=== PATIENT | female | born 1950 | race American Indian/Alaskan Native ===

== ENCOUNTER 2021-12-10 15:44 | Inpatient (IN) | payer MEDICARE ==
--- NOTE | 2021-12-10 18:09 | Emergency Department Report ---
HPI - General Chief Complaint: High BP Time Seen by Provider: 12/10/21 17:50 - HPI HPI: [facility] 7 The patient is a 71-year-old female present with chief complaint right foot pain. Family reports patient has had hypertension, poor appetite and elevated blood sugar. Family states the patient fell a few days ago and has not been her normal self since. Patient states she felt several weeks ago and hurt her right foot. Patient gives her pain a score of 5/10 ED Past Medical Hx - Past Medical History Previous Medical History?: No Additional medical history: Patient denies - Surgical History Past Surgical History?: No Additional Surgical History: Patient denies - Family History Family history: no significant - Social History Smoking Status: Current Every Day Smoker (1 pack/day) Substance Use Type: Alcohol ED Review of Systems ROS: Stated complaint: HTN/NOT EATING/HYPERGLYCEMIA/POSSIBLE GANGRENE Other details as noted in HPI Constitutional: no symptoms reported Eyes: denies: eye pain ENT: denies: throat pain Respiratory: no symptoms reported Cardiovascular: denies: chest pain Endocrine: no symptoms reported Gastrointestinal: denies: abdominal pain Musculoskeletal: arthralgia, myalgia Skin: change in color Neurological: denies: headache Physical Exam - Physical Exam Vital Signs: Vital Signs 12/10/21 16:13 Temperature 98.1 F Pulse Rate 112 H Respiratory 16 Rate Blood Pressure 190/100 [Left] O2 Sat by Pulse 100 Oximetry Physical Exam: GENERAL: The patient is well-developed well-nourished female lying on stretcher not appearing to be in acute distress. [] HEENT: Normocephalic. Atraumatic. Extraocular motions are intact. Patient has moist mucous membranes. NECK: Supple. Trachea midline CHEST/LUNGS: Clear to auscultation. There is no respiratory distress noted. HEART/CARDIOVASCULAR: Regular. There is no tachycardia. There is no gallop rub or murmur. Dopplerable left PT pulse. Unable to palpate or Doppler left DP ABDOMEN: Abdomen is soft, nontender. Patient has normal bowel sounds. There is no abdominal distention. SKIN: There is purplish discoloration of the digits of the left foot with possible gangrene of small digit. There is rubor to the dorsum of the left midfoot NEURO: The patient is awake and oriented but slow to respond. The patient is cooperative. The patient has no focal neurologic deficits. The patient has normal speech. GCS 15 MUSCULOSKELETAL: There is no evidence of acute injury. ED Course Vital Signs 12/10/21 16:13 Temperature 98.1 F Pulse Rate 112 H Respiratory 16 Rate Blood Pressure 190/100 [Left] O2 Sat by Pulse 100 Oximetry - Consultations Consultation #1: 12/10/21 23:50 Vascular surgery paged 12/10/21 22:[address] Duarte- states general surgery should be consulted 12/10/21 22:25 General surgery paged 12/10/21 22:38 Case discussed with surgeon Dr. Guerrier ED Medical Decision Making - Lab Data Result diagrams: 12/10/21 18:37 12/10/21 18:37 Laboratory Tests 12/10/21 12/10/21 12/10/21 18:37 18:37 18:37 WBC 13.3 H RBC 4.49 Hgb 14.7 H Hct 44.2 H MCV 98 H MCH 33 H MCHC 33 RDW 13.4 Plt Count 388 Lymph % (Auto) 7.6 L [place] % (Auto) 7.0 Eos % (Auto) 0.3 Baso % (Auto) 0.3 Lymph # (Auto) 1.0 L [place] # (Auto) 0.9 H Eos # (Auto) 0.0 Baso # (Auto) 0.0 Seg Neutrophils % 84.8 H Seg Neutrophils # 11.3 H VBG pH Sodium 141 Potassium 2.8 L* Chloride 89.5 L Carbon Dioxide 37 H Anion Gap 17 BUN 51 H Creatinine 1.6 H Estimated GFR 39 BUN/Creatinine Ratio 32 Glucose 141 H Lactic Acid 1.70 Calcium 10.1 Total Bilirubin 0.70 AST 29 ALT 21 Alkaline Phosphatase 87 Troponin T C-Reactive Protein Total Protein 6.3 Albumin 3.8 L Albumin/Globulin Ratio 1.5 Triglycerides Cholesterol LDL Cholesterol Direct HDL Cholesterol Cholesterol/HDL Ratio 12/10/21 12/10/21 12/10/21 18:37 18:37 18:37 WBC RBC Hgb Hct MCV MCH MCHC RDW Plt Count Lymph % (Auto) [place] % (Auto) Eos % (Auto) Baso % (Auto) Lymph # (Auto) [place] # (Auto) Eos # (Auto) Baso # (Auto) Seg Neutrophils % Seg Neutrophils # VBG pH 7.516 H Sodium Potassium Chloride Carbon Dioxide Anion Gap BUN Creatinine Estimated GFR BUN/Creatinine Ratio Glucose Lactic Acid Calcium Total Bilirubin AST ALT Alkaline Phosphatase Troponin T 0.072 H C-Reactive Protein 1.60 H Total Protein Albumin Albumin/Globulin Ratio Triglycerides 183 H Cholesterol 199 LDL Cholesterol Direct 100 HDL Cholesterol 51 Cholesterol/HDL Ratio 3.90 - Radiology Data Radiology results: report reviewed (CT head, left foot x-ray), image reviewed (CT head, left foot x-ray) interpreted by me: Left foot x-ray-no fractures or foreign body seen. No evidence of osteomyelitis appreciated [address] [address] Cat Scan Report Signed Patient: BRANDY MONAHAN MR#: [id number] [birth year] : 1950 Acct:[id number] Age/Sex: 71 / F ADM Date: 12/10/21 Loc: ED Attending Dr: Ordering Physician: VANESSA MATHEW MD Date of Service: 12/10/21 Procedure(s): CT head/brain wo con Accession Number(s): [id number] cc: VANESSA MATHEW MD CT BRAIN: 12/10/2021 INDICATION / CLINICAL INFORMATION: Altered mental status. COMPARISON: None available. FINDINGS: BRAIN/INTRACRANIAL STRUCTURES: Unenhanced CT images of the brain demonstrate no evidence of acute abnormality. Ventricles and sulci are prominent in size, consistent with prominent diffuse cerebral atrophy. Extensive chronic white matter hypoattenuation is present throughout the cerebral hemispheric white matter, consistent with extensive chronic small vessel ischemic change. There is no evidence of acute large vessel territory ischemic injury, hemorrhage, or mass. There are no abnormal extra-axial fluid collections. EXTRACRANIAL STRUCTURES: Unremarkable. IMPRESSION: No acute abnormality. Prominent chronic and age-related changes. All CT scans at this location are performed using dose reduction to ALARA by means of automated exposure control. Signer Name: Gee Bone MD Signed: 12/10/2021 7:04 PM Workstation Name: [id number] Transcribed By: ALESSANDRO Dictated By: Gee Bone MD Electronically Authenticated By: Gee Bone MD Signed Date/Time: 12/10/211903 DD/ [address] [address] XRay Report Signed Patient: BRANDY MONAHAN MR#: [id number] [birth year] : 1950 Acct:[id number] Age/Sex: 71 / F ADM Date: 12/10/21 Loc: ED Attending Dr: Ordering Physician: VANESSA MATHEW MD Date of Service: 12/10/21 Procedure(s): XR foot 3+V LT Accession Number(s): [id number] cc: VANESSA MATHEW MD Fluoro Time In Minutes: LEFT FOOT 3 VIEWS INDICATION / CLINICAL INFORMATION: Foot infection/gangrene of the digits COMPARISON: None available. FINDINGS: BONES and JOINT(S): No acute fracture or subluxation. The bones are demineralized. No areas of cortical destruction are identified. No significant arthritis. SOFT TISSUES: Mild edema is seen throughout the toes. No soft tissue defect or soft tissue gas. ADDITIONAL FINDINGS: None. IMPRESSION: Mild edema along the left toes without other acute findings. Signer Name: Pietro Braga MD Signed: 12/10/2021 7:06 PM Workstation Name: [id number] Transcribed By: MN Dictated By: Pietro Braga MD Electronically Authenticated By: Pietro Braga MD Signed Date/Time: 12/10/211905 DD/ 04 TD/TT: - Differential Diagnosis Diabetic foot infection, peripheral vascular disease, cellulitis Critical care attestation.: If time is entered above; I have spent that time in minutes in the direct care of this critically ill patient, excluding procedure time. ED Disposition Clinical Impression: Left foot infection, Peripheral vascular disease, Hypertension Disposition: ADMITTED INPATIENT Is pt being admited?: Yes Does the pt Need Aspirin: No Condition: Fair Instructions: Hypertension (ED) Time of Disposition: 22:00 (Care transferred to hospitalist (Dr. Grimes))
--- NOTE | 2021-12-10 19:08 | Cat Scan Report ---
CT BRAIN: 12/10/2021 INDICATION / CLINICAL INFORMATION: Altered mental status. COMPARISON: None available. FINDINGS: BRAIN/INTRACRANIAL STRUCTURES: Unenhanced CT images of the brain demonstrate no evidence of acute abn ormality. Ventricles and sulci are prominent in size, consistent with prominent diffuse cerebral atrophy. Extensive chronic white matter hypoattenuation is present throughout the cerebral hemispheric white m atter, consistent with extensive chronic small vessel ischemic change. There is no evidence of acute large vessel territory ischemic injury, hemorrhage, or mass. There are no abnormal extra-axial fluid collections. EXTRACRANIAL STRUCTURES: Unremarkable. IMPRESSION: No acute abnormality. Prominent chronic and age-related changes. All CT scans at this location are performed using dose reduction to ALARA by means of automated expos ure control. Signer Name: Gee Bone MD Signed: 12/10/2021 7:04 PM Workstation Name: [id number]
--- NOTE | 2021-12-10 19:11 | XRay Report ---
LEFT FOOT 3 VIEWS INDICATION / CLINICAL INFORMATION: Foot infection/gangrene of the digits COMPARISON: None available. FINDINGS: BONES and JOINT(S): No acute fracture or subluxation. The bones are demineralized. No areas of cortic al destruction are identified. No significant arthritis. SOFT TISSUES: Mild edema is seen throughout the toes. No soft tissue defect or soft tissue gas. ADDITIONAL FINDINGS: None. IMPRESSION: Mild edema along the left toes without other acute findings. Signer Name: Pietro Braga MD Signed: 12/10/2021 7:06 PM Workstation Name: [id number]
[2021-12-10 19:25] LABS: Basophils % (Auto) 0.3 % (0.0-1.8); Eosinophils % (Auto) 0.3 % (0.0-4.3); Hematocrit 44.2 % (30.3-42.9); Hemoglobin 14.7 gm/dl (10.1-14.3); Lymphocytes % (Auto) 7.6 % (13.4-35.0); Mean Corpuscular HGB Conc 33 % (30-34); Mean Corpuscular Volume 98 fl (79-97); Monocytes # (Auto) 0.9 K/mm3 (0.0-0.8); Platelet Count 388 K/mm3 (140-440); Red Blood Count 4.49 M/mm3 (3.65-5.03); Red Cell Distribution Width 13.4 % (13.2-15.2)
[2021-12-10 19:29] LABS: Albumin 3.8 g/dL (3.9-5); Calcium 10.1 mg/dL (8.4-10.2)
[2021-12-10] MEDS ORDERED: VANCOMYCIN/NS 1 GM/250 ML 1 GM/250 ML BAG IV ONE (19:44)
[2021-12-10] MEDS ORDERED: CEFEPIME/NS 2 GM/100 ML 2 GM/100 ML BAG IV ONE (19:44)
[2021-12-10 20:21] LABS: Chol/HDL Ratio 3.9 %
[2021-12-10] MEDS ORDERED: POTASSIUM CHLORIDE ER 20 MEQ TAB PO ONE (20:46)
[2021-12-10] MEDS ORDERED: cloNIDine 0.2 MG TAB PO ONE (22:07)
[2021-12-10] MEDS ORDERED: MORPHINE 2 MG/1 ML INJ IV PRN (22:08)
[2021-12-10] MEDS ORDERED: ACETAMINOPHEN 325 MG TAB PO PRN ×2 (22:08→23:07)
[2021-12-10] MEDS ORDERED: ONDANSETRON 4 MG/2 ML INJ IV PRN (22:08)
[2021-12-10 22:40] LABS: Erythrocyte Sedimentation Rate 12 mm/Hr (0-20)
[2021-12-10] MEDS ORDERED: VANCOMYCIN PHARMACY TO DOSE IV SCH (23:00)
[2021-12-10] MEDS ORDERED: NITROGLYCERIN 0.4 MG TAB SUBL SL PRN (23:07)
[2021-12-10] MEDS ORDERED: DEXTROSE 50% IN WATER (25GM) 50 ML SYRINGE IV PRN (23:07)
[2021-12-10] MEDS ORDERED: MORPHINE 4 MG/1 ML INJ IV PRN (23:07)
[2021-12-10 23:09] LABS: INR 0.76 (0.87-1.13)
[2021-12-10 23:10] LABS: Partial Thromboplastin Time 25.8 Sec. (24.2-36.6)
--- NOTE | 2021-12-10 23:16 | History and Physical Report ---
History of Present Illness Date of examination: 12/10/21 Date of admission: 12/10/21 22:08 Chief complaint: Left foot pain High blood pressure History of present illness: 71-year-old female with history of hypertension, poor appetite and elevated blood sugar was brought to the hospital because of left foot pain. Family states the patient fell a few days ago and has not been her normal self since. Patient states she felt several weeks ago and hurt her right foot. Patient gives her pain a score of 5/10. In the ER patient is found to have left foot infection. X-ray of the foot shows mild edema along the left toes without other acute findings. CT scan of the head shows no acute abnormality. Still going to admit the patient we will put the patient on IV antibiotic and consult surgery for evaluation as per vascular surgery Past History Past Medical History: diabetes, hypertension Past Surgical History: No surgical history Social history: smoking, alcohol abuse Family history: hypertension Medications and Allergies Allergies Allergy/AdvReac Type Severity Reaction Status Date / Time No Known Allergies Allergy Verified 12/10/21 16:19 Active Meds: Active Medications Acetaminophen (Acetaminophen 325 Mg Tab) 650 mg PO Q4H PRN PRN Reason: Pain MILD(1-3)/Fever >100.5/REYES Morphine Sulfate (Morphine 2 Mg/1 Ml Inj) 2 mg IV Q4H PRN PRN Reason: Pain, Moderate (4-6) Ondansetron HCl (Ondansetron 4 Mg/2 Ml Inj) 4 mg IV Q8H PRN PRN Reason: Nausea And Vomiting Sodium Chloride (Sodium Chloride 0.9% 10 Ml Flush Syringe) 10 ml IV BID SOLEDAD Sodium Chloride (Sodium Chloride 0.9% 10 Ml Flush Syringe) 10 ml IV PRN PRN PRN Reason: LINE FLUSH Review of Systems Constitutional: fatigue, weakness, malaise, other (Left foot infection and pain) Exam - Constitutional Vitals: Temp Pulse Resp BP Pulse Ox 98.1 F 112 H 16 190/100 96 12/10/21 16:13 12/10/21 16:13 12/10/21 16:13 12/10/21 16:13 12/10/21 20:15 General appearance: Present: no acute distress, well-nourished - EENT Eyes: Present: PERRL ENT: hearing intact, clear oral mucosa - Neck Neck: Present: supple, normal ROM - Respiratory Respiratory effort: normal Respiratory: bilateral: CTA - Cardiovascular Heart Sounds: Present: S1 & S2. Absent: rub, click - Extremities Extremities: pulses symmetrical, No edema Extremity abnormal: ulceration, erythema, other (Left foot infection) Peripheral Pulses: within normal limits - Abdominal General gastrointestinal: Present: soft, non-tender, non-distended, normal bowel sounds Female genitourinary: Present: normal - Integumentary Integumentary: Present: clear, warm, dry - Musculoskeletal Musculoskeletal: gait normal, strength equal bilaterally - Psychiatric Psychiatric: appropriate mood/affect, intact judgment & insight - Neurologic Neurologic: CNII-XII intact, moves all extremities HEART Score - HEART Score Troponin: Troponin T 0.072 ng/mL (0.00-0.029) H 12/10/21 18:37 Results - Labs CBC & Chem 7: 12/10/21 18:37 12/10/21 18:37 Labs: Laboratory Last Values WBC 13.3 K/mm3 (4.5-11.0) H 12/10/21 18:37 RBC 4.49 M/mm3 (3.65-5.03) 12/10/21 18:37 Hgb 14.7 gm/dl (10.1-14.3) H 12/10/21 18:37 Hct 44.2 % (30.3-42.9) H 12/10/21 18:37 MCV 98 fl (79-97) H 12/10/21 18:37 MCH 33 pg (28-32) H 12/10/21 18:37 MCHC 33 % (30-34) 12/10/21 18:37 RDW 13.4 % (13.2-15.2) 12/10/21 18:37 Plt Count 388 K/mm3 (140-440) 12/10/21 18:37 Lymph % (Auto) 7.6 % (13.4-35.0) L 12/10/21 18:37 [place] % (Auto) 7.0 % (0.0-7.3) 12/10/21 18:37 Eos % (Auto) 0.3 % (0.0-4.3) 12/10/21 18:37 Baso % (Auto) 0.3 % (0.0-1.8) 12/10/21 18:37 Lymph # (Auto) 1.0 K/mm3 (1.2-5.4) L 12/10/21 18:37 [place] # (Auto) 0.9 K/mm3 (0.0-0.8) H 12/10/21 18:37 Eos # (Auto) 0.0 K/mm3 (0.0-0.4) 12/10/21 18:37 Baso # (Auto) 0.0 K/mm3 (0.0-0.1) 12/10/21 18:37 Seg Neutrophils % 84.8 % (40.0-70.0) H 12/10/21 18:37 Seg Neutrophils # 11.3 K/mm3 (1.8-7.7) H 12/10/21 18:37 ESR 12 mm/Hr (0-20) 12/10/21 18:37 PT 11.7 Sec. (12.2-14.9) L 12/10/21 20:37 INR 0.76 (0.87-1.13) L 12/10/21 20:37 APTT 25.8 Sec. (24.2-36.6) 12/10/21 20:37 VBG pH 7.516 (7.320-7.420) H 12/10/21 18:37 Sodium 141 mmol/L (137-145) 12/10/21 18:37 Potassium 2.8 mmol/L (3.6-5.0) L* 12/10/21 18:37 Chloride 89.5 mmol/L (98-107) L 12/10/21 18:37 Carbon Dioxide 37 mmol/L (22-30) H 12/10/21 18:37 Anion Gap 17 mmol/L 12/10/21 18:37 BUN 51 mg/dL (7-17) H 12/10/21 18:37 Creatinine 1.6 mg/dL (0.6-1.2) H 12/10/21 18:37 Estimated GFR 39 ml/min 12/10/21 18:37 BUN/Creatinine Ratio 32 % 12/10/21 18:37 Glucose 141 mg/dL (65-100) H 12/10/21 18:37 Lactic Acid 1.70 mmol/L (0.7-2.0) 12/10/21 18:37 Calcium 10.1 mg/dL (8.4-10.2) 12/10/21 18:37 Total Bilirubin 0.70 mg/dL (0.1-1.2) 12/10/21 18:37 AST 29 units/L (5-40) 12/10/21 18:37 ALT 21 units/L (7-56) 12/10/21 18:37 Alkaline Phosphatase 87 units/L (35-129) 12/10/21 18:37 Troponin T 0.072 ng/mL (0.00-0.029) H 12/10/21 18:37 C-Reactive Protein 1.60 mg/dL (0.00-1.30) H 12/10/21 18:37 Total Protein 6.3 g/dL (6.3-8.2) 12/10/21 18:37 Albumin 3.8 g/dL (3.9-5) L 12/10/21 18:37 Albumin/Globulin Ratio 1.5 % 12/10/21 18:37 Triglycerides 183 mg/dL (2-149) H 12/10/21 18:37 Cholesterol 199 mg/dL (50-199) 12/10/21 18:37 LDL Cholesterol Direct 100 mg/dL (50-130) 12/10/21 18:37 HDL Cholesterol 51 mg/dL (40-59) 12/10/21 18:37 Cholesterol/HDL Ratio 3.90 % 12/10/21 18:37 Microbiology: Microbiology 12/10/21 20:05 Peripheral/Venous Blood Culture - Preliminary Culture in Progress 12/10/21 20:05 Peripheral/Venous Blood Culture - Preliminary Culture in Progress - Imaging and Cardiology CT Scan - head: report reviewed Assessment and Plan VTE prophylaxis?: Chemical Plan of care discussed with patient/family: Yes - Patient Problems (1) Left foot infection Current Visit: Yes Status: Acute Plan to address problem: Admit the patient to the medical floor. Vancomycin 1 g IV 12 hours. Zosyn 4.5 g IV every 8 hours. Wound care evaluation and wound culture. Surgical evaluation. Recheck CBC BMP in the morning (2) Elevated troponin Current Visit: Yes Status: Acute Plan to address problem: Aspirin 81 mg p.o. daily. Lipitor 40 mg p.o. daily. Serial cardiac enzymes. Echocardiogram. Cardiology evaluation (3) Hyperglycemia Current Visit: Yes Status: Acute Plan to address problem: 1800 kcal ADA diet. Accu-Chek before meals and at bedtime with Humalog moderate dose coverage. Diabetic education (4) Hypertension Current Visit: Yes Status: Acute Plan to address problem: Hydralazine 10 mg IV every 6 hours as needed. We continue the home medication. We will monitor the blood pressure closely. Cardiology evaluation (5) Peripheral vascular disease Current Visit: Yes Status: Acute Plan to address problem: Aspirin 320 mg p.o. daily. Lipitor 40 mg p.o. daily. Vancomycin 1 g IV every 12 hours. Zosyn. Surgery evaluation (6) DVT prophylaxis Current Visit: Yes Status: Acute Plan to address problem: Heparin 5000 units subcu every 8 hours for DVT prophylaxis. Pepcid 20 mg p.o. twice daily for GI prophylaxis. Patient is a full code
[2021-12-10] MEDS ORDERED: PIPERACIL/TAZOBACTA 4.5/NS 100 4.5 GM/100 ML VIAL IV SCH (23:45)
[2021-12-10] MEDS ORDERED: VANCOMYCIN/NS 1 GM/250 ML 1 GM/250 ML BAG IV SCH (23:45)
[2021-12-11] MEDS: SODIUM CHLORIDE 0.45% 1000 ML 1,000 ML IV SCH ×2 (02:16→21:35)
[2021-12-11] MEDS ORDERED: cloNIDine 0.2 MG TAB PO ONE (05:55)
[2021-12-11] MEDS: HEPARIN 5,000 UNIT/1 ML VIAL SUB-Q SCH ×3 (05:59→21:55)
[2021-12-11] MEDS ORDERED: hydrALAZINE 20 MG/1 ML INJ IV PRN ×2 (06:16→09:30)
[2021-12-11] MEDS: INSULIN LISPRO 100 UNIT/ML SUB-Q SCH ×4 (08:25→21:36)
[2021-12-11 08:26] LABS: Hematocrit 40.8 % (30.3-42.9); Hemoglobin 13.8 gm/dl (10.1-14.3); Mean Corpuscular HGB Conc 34 % (30-34); Mean Corpuscular Volume 98 fl (79-97); Platelet Count 327 K/mm3 (140-440); Red Blood Count 4.15 M/mm3 (3.65-5.03); Red Cell Distribution Width 13.4 % (13.2-15.2)
[2021-12-11 08:39] LABS: Calcium 9.2 mg/dL (8.4-10.2)
--- NOTE | 2021-12-11 09:01 | Consultation ---
History of Present Illness Consult date: 12/11/21 - History of present illness History of present illness: 71-year-old female with history of hypertension, poor appetite and elevated blood sugar was brought to the hospital because of left foot pain. Family states the patient fell a few days ago and has not been her normal self since. Patient states she felt several weeks ago and hurt her right foot. Patient gives her pain a score of 5/10. In the ER patient is found to have left foot infection. X-ray of the foot shows mild edema along the left toes without other acute findings. CT scan of the head shows no acute abnormality. Surgery is consulted to help manage STI of left foot. Vascular eval also in progress. Past History Past Medical History: diabetes, hypertension Past Surgical History: No surgical history Social history: smoking, alcohol abuse Family history: hypertension Medications and Allergies Allergies Allergy/AdvReac Type Severity Reaction Status Date / Time No Known Allergies Allergy Verified 12/10/21 16:19 Home Medications Medication Instructions Recorded Confirmed Last Taken Type Amlodipine Besylate 5 PO DAILY 12/11/21 12/11/21 Unknown History DULoxetine [Cymbalta] 30 mg PO BID 12/11/21 12/11/21 Unknown History Doxycycline Monohydrate 100 mg PO BID 12/11/21 12/11/21 Unknown History [Doxycycline Monohydrate CAP] Gabapentin 100 mg PO BID 12/11/21 12/11/21 Unknown History Megestrol Acetate 40 mg PO DAILY 12/11/21 12/11/21 Unknown History QUEtiapine [SEROquel] 12.5 mg PO HS 12/11/21 12/11/21 Unknown History Vitamin D3 50,000UNIT CAP 50,000 units PO 1XW 12/11/21 12/11/21 Unknown History Active Meds: Active Medications Acetaminophen (Acetaminophen 325 Mg Tab) 650 mg PO Q6H PRN PRN Reason: Pain, Mild (1-3) Aspirin (Aspirin Ec 325 Mg Tab) 325 mg PO QDAY [facility] Atorvastatin Calcium (Atorvastatin 40 Mg Tab) 40 mg PO QHS [facility] Dextrose (Dextrose 50% In Water (25gm) 50 Ml Syringe) 50 ml IV Q30MIN PRN; Protocol PRN Reason: Hypoglycemia Heparin Sodium (Porcine) (Heparin 5,000 Unit/1 Ml Vial) 5,000 unit SUB-Q Q8HR [facility] Last Admin: 12/11/21 05:59 Dose: 5,000 unit Hydralazine HCl (Hydralazine 20 Mg/1 Ml Inj) 10 mg IV Q6HR PRN PRN Reason: Hypertension Sodium Chloride (Nacl 0.45% 1000 Ml) 1,000 mls @ 100 mls/hr IV DIRECT [facility] Last Admin: 12/11/21 02:16 Dose: 100 mls/hr Piperacillin Sod/Tazobactam Sod (Zosyn/Ns 3.375gm/50ml) 3.375 gm in 50 mls @ 100 mls/hr IV Q8H [facility]; Protocol Vancomycin HCl 1,250 mg/ (Sodium Chloride) 275 mls @ 166.667 mls/hr IV Q24H [facility] Insulin Human Lispro (Insulin Lispro 100 Unit/Ml) 0 unit SUB-Q ACHS [facility]; Protocol Morphine Sulfate (Morphine 2 Mg/1 Ml Inj) 2 mg IV Q4H PRN PRN Reason: Pain, Moderate (4-6) Morphine Sulfate (Morphine 4 Mg/1 Ml Inj) 2 mg IV Q5MIN PRN PRN Reason: Chest Pain unrelieved by NTG Nitroglycerin (Nitroglycerin 0.4 Mg Tab Subl) 0.4 mg SL Q5M PRN PRN Reason: Chest Pain Ondansetron HCl (Ondansetron 4 Mg/2 Ml Inj) 4 mg IV Q8H PRN PRN Reason: Nausea And Vomiting Pantoprazole Sodium (Pantoprazole 40 Mg Tab) 40 mg PO QDAY [facility] Sodium Chloride (Sodium Chloride 0.9% 10 Ml Flush Syringe) 10 ml IV BID [facility] Sodium Chloride (Sodium Chloride 0.9% 10 Ml Flush Syringe) 10 ml IV PRN PRN PRN Reason: LINE FLUSH Tramadol HCl (Tramadol 50 Mg Tab) 50 mg PO Q6H PRN PRN Reason: Pain, Moderate (4-6) Exam Vital Signs Temp Pulse Resp BP Pulse Ox 98.1 F 112 H 16 190/100 100 12/10/21 16:13 12/10/21 16:13 12/10/21 16:13 12/10/21 16:13 12/10/21 16:13 Results - Labs 12/10/21 18:37 12/11/21 07:31 Abnormal lab results 12/10/21 12/10/21 12/10/21 Range/Units 18:37 18:37 18:37 WBC 13.3 H (4.5-11.0) K/mm3 Hgb 14.7 H (10.1-14.3) gm/dl Hct 44.2 H (30.3-42.9) % MCV 98 H (79-97) fl MCH 33 H (28-32) pg Lymph % (Auto) 7.6 L (13.4-35.0) % Lymph # (Auto) 1.0 L (1.2-5.4) K/mm3 [place] # (Auto) 0.9 H (0.0-0.8) K/mm3 Seg Neutrophils % 84.8 H (40.0-70.0) % Seg Neutrophils # 11.3 H (1.8-7.7) K/mm3 PT (12.2-14.9) Sec. INR (0.87-1.13) VBG pH (7.320-7.420) Potassium 2.8 L* (3.6-5.0) mmol/L Chloride 89.5 L (98-107) mmol/L Carbon Dioxide 37 H (22-30) mmol/L BUN 51 H (7-17) mg/dL Creatinine 1.6 H (0.6-1.2) mg/dL Glucose 141 H (65-100) mg/dL Troponin T 0.072 H (0.00-0.029) ng/mL C-Reactive Protein (0.00-1.30) mg/dL Albumin 3.8 L (3.9-5) g/dL Triglycerides 183 H (2-149) mg/dL 12/10/21 12/10/21 12/10/21 Range/Units 18:37 18:37 20:37 WBC (4.5-11.0) K/mm3 Hgb (10.1-14.3) gm/dl Hct (30.3-42.9) % MCV (79-97) fl MCH (28-32) pg Lymph % (Auto) (13.4-35.0) % Lymph # (Auto) (1.2-5.4) K/mm3 [place] # (Auto) (0.0-0.8) K/mm3 Seg Neutrophils % (40.0-70.0) % Seg Neutrophils # (1.8-7.7) K/mm3 PT 11.7 L (12.2-14.9) Sec. INR 0.76 L (0.87-1.13) VBG pH 7.516 H (7.320-7.420) Potassium (3.6-5.0) mmol/L Chloride (98-107) mmol/L Carbon Dioxide (22-30) mmol/L BUN (7-17) mg/dL Creatinine (0.6-1.2) mg/dL Glucose (65-100) mg/dL Troponin T (0.00-0.029) ng/mL C-Reactive Protein 1.60 H (0.00-1.30) mg/dL Albumin (3.9-5) g/dL Triglycerides (2-149) mg/dL 12/11/21 12/11/21 Range/Units 07:31 07:31 WBC (4.5-11.0) K/mm3 Hgb (10.1-14.3) gm/dl Hct (30.3-42.9) % MCV (79-97) fl MCH (28-32) pg Lymph % (Auto) (13.4-35.0) % Lymph # (Auto) (1.2-5.4) K/mm3 [place] # (Auto) (0.0-0.8) K/mm3 Seg Neutrophils % (40.0-70.0) % Seg Neutrophils # (1.8-7.7) K/mm3 PT (12.2-14.9) Sec. INR (0.87-1.13) VBG pH (7.320-7.420) Potassium 3.2 L (3.6-5.0) mmol/L Chloride 93.5 L (98-107) mmol/L Carbon Dioxide 35 H (22-30) mmol/L BUN 44 H (7-17) mg/dL Creatinine 1.4 H (0.6-1.2) mg/dL Glucose 102 H (65-100) mg/dL Troponin T 0.060 H (0.00-0.029) ng/mL C-Reactive Protein (0.00-1.30) mg/dL Albumin (3.9-5) g/dL Triglycerides (2-149) mg/dL Diabetes panel 12/10/21 12/10/21 12/11/21 Range/Units 18:37 18:37 07:31 Sodium 141 141 (137-145) mmol/L Potassium 2.8 L* 3.2 L (3.6-5.0) mmol/L Chloride 89.5 L 93.5 L (98-107) mmol/L Carbon Dioxide 37 H 35 H (22-30) mmol/L BUN 51 H 44 H (7-17) mg/dL Creatinine 1.6 H 1.4 H (0.6-1.2) mg/dL Glucose 141 H 102 H (65-100) mg/dL Calcium 10.1 9.2 (8.4-10.2) mg/dL AST 29 (5-40) units/L ALT 21 (7-56) units/L Alkaline Phosphatase 87 (35-129) units/L Total Protein 6.3 (6.3-8.2) g/dL Albumin 3.8 L (3.9-5) g/dL Triglycerides 183 H (2-149) mg/dL HDL Cholesterol 51 (40-59) mg/dL Calcium panel 12/10/21 12/11/21 Range/Units 18:37 07:31 Calcium 10.1 9.2 (8.4-10.2) mg/dL Albumin 3.8 L (3.9-5) g/dL Pituitary panel 12/10/21 12/11/21 Range/Units 18:37 07:31 Sodium 141 141 (137-145) mmol/L Potassium 2.8 L* 3.2 L (3.6-5.0) mmol/L Chloride 89.5 L 93.5 L (98-107) mmol/L Carbon Dioxide 37 H 35 H (22-30) mmol/L BUN 51 H 44 H (7-17) mg/dL Creatinine 1.6 H 1.4 H (0.6-1.2) mg/dL Glucose 141 H 102 H (65-100) mg/dL Calcium 10.1 9.2 (8.4-10.2) mg/dL Adrenal panel 12/10/21 12/11/21 Range/Units 18:37 07:31 Sodium 141 141 (137-145) mmol/L Potassium 2.8 L* 3.2 L (3.6-5.0) mmol/L Chloride 89.5 L 93.5 L (98-107) mmol/L Carbon Dioxide 37 H 35 H (22-30) mmol/L BUN 51 H 44 H (7-17) mg/dL Creatinine 1.6 H 1.4 H (0.6-1.2) mg/dL Glucose 141 H 102 H (65-100) mg/dL Calcium 10.1 9.2 (8.4-10.2) mg/dL Total Bilirubin 0.70 (0.1-1.2) mg/dL AST 29 (5-40) units/L ALT 21 (7-56) units/L Alkaline Phosphatase 87 (35-129) units/L Total Protein 6.3 (6.3-8.2) g/dL Albumin 3.8 L (3.9-5) g/dL Assessment and Plan 71-year-old female with history of hypertension, poor appetite and elevated blood sugar was brought to the hospital because of left foot pain. Family states the patient fell a few days ago and has not been her normal self since. Patient states she felt several weeks ago and hurt her right foot. Patient gives her pain a score of 5/10. In the ER patient is found to have left foot infection. X-ray of the foot shows mild edema along the left toes without other acute findings. CT scan of the head shows no acute abnormality. Surgery is consulted to help manage STI of left foot. Vascular eval also in progress.
[2021-12-11] MEDS ORDERED: POTASSIUM CHLORIDE ER 20 MEQ TAB PO NR (09:30)
[2021-12-11] MEDS ORDERED: ASPIRIN EC 325 MG TAB PO SCH (10:00)
--- NOTE | 2021-12-11 10:33 | Electrocardiograph Report ---
[facility] Test Date: 2021-12-11 Test Time: 00:48:12 Pat Name: BRANDY MONAHAN Department: Room: A466 1 Gender: F Jewel Setter: JACLYN : 1950 Requested By: NORBERT COSTA Order Number: [id number] Reading MD: Cruz Sommer Measurements Intervals [place] Rate: 99 P: 83 NE: 164 QRS: -74 QRSD: 95 T: -75 QT: 410 QTc: 528 Interpretive Statements Sinus rhythm Biatrial enlargement Left anterior fascicular block Prolonged QT interval No previous ECG available for comparison Electronically Signed On 12-11-2021 10:33:50 EDT by Cruz Sommer
--- NOTE | 2021-12-11 10:34 | Electrocardiograph Report ---
[facility] Test Date: 2021-12-11 Test Time: 06:42:43 Pat Name: BRANDY MONAHAN Department: Room: A466 1 Gender: F Marble Setter: JANICE : 1950 Requested By: NORBERT COSTA Order Number: [id number] Reading MD: Cruz Sommer Measurements Intervals [place] Rate: 94 P: 57 [place]: 167 QRS: -86 QRSD: 88 T: -89 QT: 420 QTc: 526 Interpretive Statements Sinus rhythm Probable left atrial enlargement Left anterior fascicular block LVH with secondary repolarization abnormality Probable anterior infarct, age indeterminate Prolonged QT interval Compared to ECG 12/11/2021 00:48:12 Left ventricular hypertrophy now present Early repolarization now present Myocardial infarct finding now present Electronically Signed On 12-11-2021 10:34:08 EDT by Cruz Sommer
[2021-12-11] MEDS ORDERED: SODIUM CHLORIDE 0.9% 500 ML 500 ML IV SCH (11:00)
[2021-12-11] MEDS: METOPROLOL TARTRATE 25 MG TAB PO SCH ×2 (11:06→21:56)
[2021-12-11] MEDS: PANTOPRAZOLE 40 MG TAB PO SCH (11:06)
[2021-12-11] MEDS: PIPERACILLIN/TAZOBACTAM 3.375 3.375 GM/50 ML BAG IV SCH (12:02)
--- NOTE | 2021-12-11 13:49 | Consultation ---
History of Present Illness Consult date: 12/11/21 Consult reason: elevated troponin History of present illness: 71-year-old woman with history of hypertension, brought in to the hospital by the family for poor appetite and uncontrolled blood pressures. The patient was seen in the emergency room, with a blood pressure of 190/100, multiple laboratory abnormalities including a leukocytosis of 13,000, hypokalemia of 2.8, and acute kidney injury with a BUN of 51 and creatinine of 1.6. In this milieu, the troponin level was borderline increased at 0.07. Cardiology consultation w as requested for the troponin elevation. The patient appears frail, cachectic, and lethargic, but no acute respiratory distress. No chest pain or shortness of breath or palpitations was reported. T here is no lower extremity edema. It is uncertain why her blood pressure was uncontrolled, she is unable to comment on whether compliant with her recommended antihypertensive therapy. There are no records of any prior cardiac history of prior cardiac work-up. EKG was a sinus rhythm, left axis deviation, left ventricular per trophy with diffuse ST segment depression, questionable left ventricle hypertrophy repolarization abnormalities less likely ischemia. There are no prior ECGs for comparison. Past History Past Medical History: diabetes, hypertension Past Surgical History: No surgical history Social history: smoking, alcohol abuse Family history: hypertension Medications and Allergies Allergies Allergy/AdvReac Type Severity Reaction Status Date / Time No Known Allergies Allergy Verified 12/10/21 16:19 Home Medications Medication Instructions Recorded Confirmed Last Taken Type Amlodipine Besylate 5 PO DAILY 12/11/21 12/11/21 Unknown History DULoxetine [Cymbalta] 30 mg PO BID 12/11/21 12/11/21 Unknown History Doxycycline Monohydrate 100 mg PO BID 12/11/21 12/11/21 Unknown History [Doxycycline Monohydrate CAP] Gabapentin 100 mg PO BID 12/11/21 12/11/21 Unknown History Megestrol Acetate 40 mg PO DAILY 12/11/21 12/11/21 Unknown History QUEtiapine [SEROquel] 12.5 mg PO HS 12/11/21 12/11/21 Unknown History Vitamin D3 50,000UNIT CAP 50,000 units PO 1XW 12/11/21 12/11/21 Unknown History Active Meds: Active Medications Acetaminophen (Acetaminophen 325 Mg Tab) 650 mg PO Q6H PRN PRN Reason: Pain, Mild (1-3) Aspirin (Aspirin Ec 325 Mg Tab) 325 mg PO QDAY [facility] Last Admin: 12/11/21 11:06 Dose: 325 mg Atorvastatin Calcium (Atorvastatin 40 Mg Tab) 40 mg PO QHS [facility] Dextrose (Dextrose 50% In Water (25gm) 50 Ml Syringe) 50 ml IV Q30MIN PRN; Protocol PRN Reason: Hypoglycemia Heparin Sodium (Porcine) (Heparin 5,000 Unit/1 Ml Vial) 5,000 unit SUB-Q Q8HR [facility] Last Admin: 12/11/21 05:59 Dose: 5,000 unit Hydralazine HCl (Hydralazine 25 Mg Tab) 25 mg PO Q8HR [facility] Hydralazine HCl (Hydralazine 20 Mg/1 Ml Inj) 10 mg IV Q4H PRN PRN Reason: Hypertension Sodium Chloride (Nacl 0.45% 1000 Ml) 1,000 mls @ 100 mls/hr IV DIRECT [facility] Last Admin: 12/11/21 02:16 Dose: 100 mls/hr Sodium Chloride (Nacl 0.9% 500 Ml) 500 mls @ 50 mls/hr IV ONCE@1100 [facility] Stop: 12/11/21 18:00 Last Admin: 12/11/21 11:07 Dose: 50 mls/hr Vancomycin HCl 500 mg/ Sodium (Chloride) 110 mls @ 66.667 mls/hr IV Q24H [facility] Insulin Human Lispro (Insulin Lispro 100 Unit/Ml) 0 unit SUB-Q ACHS [facility]; Protocol Last Admin: 12/11/21 08:25 Dose: Not Given Metoprolol Tartrate (Metoprolol Tartrate 25 Mg Tab) 12.5 mg PO BID [facility] Last Admin: 12/11/21 11:06 Dose: 12.5 mg Morphine Sulfate (Morphine 2 Mg/1 Ml Inj) 2 mg IV Q4H PRN PRN Reason: Pain, Moderate (4-6) Morphine Sulfate (Morphine 4 Mg/1 Ml Inj) 2 mg IV Q5MIN PRN PRN Reason: Chest Pain unrelieved by NTG Nitroglycerin (Nitroglycerin 0.4 Mg Tab Subl) 0.4 mg SL Q5M PRN PRN Reason: Chest Pain Ondansetron HCl (Ondansetron 4 Mg/2 Ml Inj) 4 mg IV Q8H PRN PRN Reason: Nausea And Vomiting Pantoprazole Sodium (Pantoprazole 40 Mg Tab) 40 mg PO QDAY [facility] Last Admin: 12/11/21 11:06 Dose: 40 mg Potassium Chloride (Potassium Chloride Er 20 Meq Tab) 40 meq PO ONCE NR Stop: 12/11/21 14:00 Last Admin: 12/11/21 11:07 Dose: 40 meq Sodium Chloride (Sodium Chloride 0.9% 10 Ml Flush Syringe) 10 ml IV BID [facility] Last Admin: 12/11/21 11:07 Dose: 10 ml Sodium Chloride (Sodium Chloride 0.9% 10 Ml Flush Syringe) 10 ml IV PRN PRN PRN Reason: LINE FLUSH Tramadol HCl (Tramadol 50 Mg Tab) 50 mg PO Q6H PRN PRN Reason: Pain, Moderate (4-6) Review of Systems ROS unobtainable: due to mental status Physical Examination Vital Signs Temp Pulse Resp BP Pulse Ox 98.1 F 112 H 16 190/100 100 12/10/21 16:13 12/10/21 16:13 12/10/21 16:13 12/10/21 16:13 12/10/21 16:13 General appearance: no acute distress, cachectic, other (Patient is frail, lethargic) HEENT: Positive: PERRL Neck: Positive: neck supple Cardiac: Positive: Reg Rate and Rhythm Lungs: Positive: Decreased Breath Sounds Neuro: Positive: Weakness (Generalized lethargy) Abdomen: Positive: Soft Female genitourinary: deferred Skin: Positive: Clear Extremities: Absent: edema Results 12/11/21 07:31 12/11/21 07:31 Cardiac Enzymes 12/10/21 Range/Units 18:37 AST 29 (5-40) units/L Coagulation 12/10/21 Range/Units 20:37 PT 11.7 L (12.2-14.9) Sec. INR 0.76 L (0.87-1.13) APTT 25.8 (24.2-36.6) Sec. Lipids 12/10/21 Range/Units 18:37 Triglycerides 183 H (2-149) mg/dL Cholesterol 199 (50-199) mg/dL HDL Cholesterol 51 (40-59) mg/dL Cholesterol/HDL Ratio 3.90 % CBC 12/10/21 12/11/21 Range/Units 18:37 07:31 WBC 13.3 H 15.0 H (4.5-11.0) K/mm3 RBC 4.49 4.15 (3.65-5.03) M/mm3 Hgb 14.7 H 13.8 (10.1-14.3) gm/dl Hct 44.2 H 40.8 (30.3-42.9) % Plt Count 388 327 (140-440) K/mm3 Lymph # (Auto) 1.0 L (1.2-5.4) K/mm3 [place] # (Auto) 0.9 H (0.0-0.8) K/mm3 Eos # (Auto) 0.0 (0.0-0.4) K/mm3 Baso # (Auto) 0.0 (0.0-0.1) K/mm3 Comprehensive Metabolic Panel 12/10/21 12/11/21 Range/Units 18:37 07:31 Sodium 141 141 (137-145) mmol/L Potassium 2.8 L* 3.2 L (3.6-5.0) mmol/L Chloride 89.5 L 93.5 L (98-107) mmol/L Carbon Dioxide 37 H 35 H (22-30) mmol/L BUN 51 H 44 H (7-17) mg/dL Creatinine 1.6 H 1.4 H (0.6-1.2) mg/dL Glucose 141 H 102 H (65-100) mg/dL Calcium 10.1 9.2 (8.4-10.2) mg/dL AST 29 (5-40) units/L ALT 21 (7-56) units/L Alkaline Phosphatase 87 (35-129) units/L Total Protein 6.3 (6.3-8.2) g/dL Albumin 3.8 L (3.9-5) g/dL EKG interpretations - Telemetry EKG Rhythm: Sinus Rhythm (With left axis deviation, left ventricle hypertrophy and diffuse ST segment repolarization abnormality) Assessment and Plan - Patient Problems (1) Uncontrolled hypertension Current Visit: Yes Status: Acute Plan to address problem: 71-year-old woman who presents with severe uncontrolled hypertension, poor oral intake, with multiple metabolic abnormalities including hypokalemia and dehydration. The borderline troponin level in this clinical setting is likely nonspecific finding. Most significant cardiac issues are the uncontrolled hypertension, and the abnormal ECG. We will request an old ECG for comparison, order an echocardiogram for left ventricular function assessment, and make recommendations for optimal blood pressure control.
[2021-12-11] MEDS ORDERED: VANCOMYCIN 500 MG in SODIUM CHLORIDE 0.9% 100 ML IV SCH (14:00)
[2021-12-11] MEDS: hydrALAZINE 25 MG TAB PO SCH ×2 (15:00→21:56)
[2021-12-11] MEDS: NIFEdipine XL 30 MG TAB PO SCH ×2 (15:02→21:56)
--- NOTE | 2021-12-11 15:15 | Progress Note ---
Assessment and Plan Assessment and plan: -- Left foot infection/gangrene toes Will DC Vanco Zosyn and start cefepime 1 g daily[confirmed the dose with pharmacy] Follow cultures, supportive care, elevate the limb --Elevated troponin Aspirin 81 mg p.o. daily. Lipitor 40 mg p.o. daily. Serial cardiac enzymes. Echocardiogram. Cardiology evaluation --Acute kidney injury; due to vasomotor nephropathy/POA Gentle hydration, closely monitor renal function Avoid nephrotoxins, renal dosing of medications Renal consult if needed -Hypokalemia; Replenished with KCl Follow electrolytes - Hyperglycemia 1800 kcal ADA diet. Accu-Chek before meals and at bedtime with Humalog moderate dose coverage. Diabetic education --Hypertension Hydralazine 10 mg IV every 6 hours as needed. We continue the home medication. We will monitor the blood pressure closely. Cardiology evaluation -- Peripheral vascular disease Surgery following, check lower extremity arterial Doppler, venous Doppler Consult vascular if needed --Full CODE STATUS -- DVT prophylaxis Heparin 5000 units subcu every 8 hours for DVT prophylaxis. Pepcid 20 mg p.o. twice daily for GI prophylaxis. Closely monitor the patient and adjust management as needed Plan of care reviewed with the patient and her nurse Carbonation Equipment Tender recommendations noted and appreciated History Interval history: Seen and examined the patient at the bedside Patient's chart and medications reviewed Patient is emaciated cachectic Vitals noted Hospitalist Physical - Constitutional Vitals: Temp Pulse Resp BP Pulse Ox 98.0 F 91 H 18 156/89 99 12/11/21 11:14 12/11/21 11:14 12/11/21 11:14 12/11/21 11:14 12/11/21 11:14 General appearance: Present: no acute distress, cachectic, other (Patient is frail, lethargic) - EENT Eyes: Present: PERRL, EOM intact - Neck Neck: Present: supple, normal ROM - Respiratory Respiratory effort: normal Respiratory: bilateral: diminished, negative: rales, rhonchi, wheezing - Cardiovascular Rhythm: regular Heart Sounds: Present: S1 & S2 - Extremities Extremities: abnormal (Left foot black discoloration/gangrene toes with ulcers) Extremity abnormal: ulceration, black - Abdominal General gastrointestinal: soft, non-tender, non-distended, normal bowel sounds - Integumentary Integumentary: Present: clear, warm - Psychiatric Psychiatric: other - Neurologic Neurologic: moves all extremities (Minimally communicative) HEART Score - HEART Score Troponin: Troponin T 0.060 ng/mL (0.00-0.029) H 12/11/21 07:31 Results - Labs CBC & Chem 7: 12/11/21 07:31 09 07:31 Labs: Laboratory Last Values WBC 15.0 K/mm3 (4.5-11.0) H 12/11/21 07:31 RBC 4.15 M/mm3 (3.65-5.03) 12/11/21 07:31 Hgb 13.8 gm/dl (10.1-14.3) 12/11/21 07:31 Hct 40.8 % (30.3-42.9) 12/11/21 07:31 MCV 98 fl (79-97) H 12/11/21 07:31 MCH 33 pg (28-32) H 12/11/21 07:31 MCHC 34 % (30-34) 12/11/21 07:31 RDW 13.4 % (13.2-15.2) 12/11/21 07:31 Plt Count 327 K/mm3 (140-440) 12/11/21 07:31 Lymph % (Auto) 7.6 % (13.4-35.0) L 12/10/21 18:37 [place] % (Auto) 7.0 % (0.0-7.3) 12/10/21 18:37 Eos % (Auto) 0.3 % (0.0-4.3) 12/10/21 18:37 Baso % (Auto) 0.3 % (0.0-1.8) 12/10/21 18:37 Lymph # (Auto) 1.0 K/mm3 (1.2-5.4) L 12/10/21 18:37 [place] # (Auto) 0.9 K/mm3 (0.0-0.8) H 12/10/21 18:37 Eos # (Auto) 0.0 K/mm3 (0.0-0.4) 12/10/21 18:37 Baso # (Auto) 0.0 K/mm3 (0.0-0.1) 12/10/21 18:37 Seg Neutrophils % 84.8 % (40.0-70.0) H 12/10/21 18:37 Seg Neutrophils # 11.3 K/mm3 (1.8-7.7) H 12/10/21 18:37 ESR 12 mm/Hr (0-20) 12/10/21 18:37 PT 11.7 Sec. (12.2-14.9) L 12/10/21 20:37 INR 0.76 (0.87-1.13) L 12/10/21 20:37 APTT 25.8 Sec. (24.2-36.6) 12/10/21 20:37 VBG pH 7.516 (7.320-7.420) H 12/10/21 18:37 Sodium 141 mmol/L (137-145) 12/11/21 07:31 Potassium 3.2 mmol/L (3.6-5.0) L 12/11/21 07:31 Chloride 93.5 mmol/L (98-107) L 12/11/21 07:31 Carbon Dioxide 35 mmol/L (22-30) H 12/11/21 07:31 Anion Gap 16 mmol/L 12/11/21 07:31 BUN 44 mg/dL (7-17) H 12/11/21 07:31 Creatinine 1.4 mg/dL (0.6-1.2) H 12/11/21 07:31 Estimated GFR 45 ml/min 12/11/21 07:31 BUN/Creatinine Ratio 31 % 12/11/21 07:31 Glucose 102 mg/dL (65-100) H 12/11/21 07:31 Lactic Acid 1.70 mmol/L (0.7-2.0) 12/10/21 18:37 Calcium 9.2 mg/dL (8.4-10.2) 12/11/21 07:31 Total Bilirubin 0.70 mg/dL (0.1-1.2) 12/10/21 18:37 AST 29 units/L (5-40) 12/10/21 18:37 ALT 21 units/L (7-56) 12/10/21 18:37 Alkaline Phosphatase 87 units/L (35-129) 12/10/21 18:37 Troponin T 0.060 ng/mL (0.00-0.029) H 12/11/21 07:31 C-Reactive Protein 1.60 mg/dL (0.00-1.30) H 12/10/21 18:37 Total Protein 6.3 g/dL (6.3-8.2) 12/10/21 18:37 Albumin 3.8 g/dL (3.9-5) L 12/10/21 18:37 Albumin/Globulin Ratio 1.5 % 12/10/21 18:37 Triglycerides 183 mg/dL (2-149) H 12/10/21 18:37 Cholesterol 199 mg/dL (50-199) 12/10/21 18:37 LDL Cholesterol Direct 100 mg/dL (50-130) 12/10/21 18:37 HDL Cholesterol 51 mg/dL (40-59) 12/10/21 18:37 Cholesterol/HDL Ratio 3.90 % 12/10/21 18:37 Microbiology: Microbiology 12/10/21 20:05 Peripheral/Venous Blood Culture - Preliminary Culture in Progress 12/10/21 20:05 Peripheral/Venous Blood Culture - Preliminary Culture in Progress Active Medications - Current Medications Current Medications: Generic Name Dose Route Start Last Admin Trade Name Freq PRN Reason Stop Dose Admin Acetaminophen 650 mg 12/10/21 23:07 Acetaminophen 325 Mg Tab PO Q6H PRN Pain, Mild (1-3) Aspirin 81 mg 12/12/21 10:00 Aspirin Ec 81 Mg Tab PO QDAY [facility] Atorvastatin Calcium 40 mg 12/11/21 22:00 Atorvastatin 40 Mg Tab PO QHS [facility] Dextrose 50 ml 12/10/21 23:07 Dextrose 50% In Water (25gm) 50 Ml Syringe IV Q30MIN PRN Hypoglycemia Protocol Heparin Sodium (Porcine) 5,000 unit 12/11/21 06:00 12/11/21 15:02 Heparin 5,000 Unit/1 Ml Vial SUB-Q 5,000 unit Q8HR [facility] Administration Hydralazine HCl 25 mg 12/11/21 14:00 12/11/21 15:00 Hydralazine 25 Mg Tab PO 25 mg Q8HR [facility] Administration Hydralazine HCl 10 mg 12/11/21 09:30 Hydralazine 20 Mg/1 Ml Inj IV Q4H PRN Hypertension Sodium Chloride 1,000 mls @ 100 mls/hr 12/10/21 23:45 12/11/21 02:16 Nacl 0.45% 1000 Ml IV 100 mls/hr DIRECT [facility] Administration Sodium Chloride 500 mls @ 50 mls/hr 12/11/21 11:00 12/11/21 11:07 Nacl 0.9% 500 Ml IV 12/11/21 18:00 50 mls/hr [id number] [facility] Administration Cefepime HCl 1 gm in 100 mls @ 200 mls/hr 12/12/21 10:00 Cefepime/Ns 1 Gm/100 Ml IV DAILY [facility] Protocol Insulin Human Lispro 0 unit 12/11/21 07:30 12/11/21 14:41 Insulin Lispro 100 Unit/Ml SUB-Q Not Given ACHS [facility] Protocol Metoprolol Tartrate 12.5 mg 12/11/21 10:00 12/11/21 11:06 Metoprolol Tartrate 25 Mg Tab PO 12.5 mg BID [facility] Administration Morphine Sulfate 2 mg 12/10/21 22:08 Morphine 2 Mg/1 Ml Inj IV Q4H PRN Pain, Moderate (4-6) Morphine Sulfate 2 mg 12/10/21 23:07 Morphine 4 Mg/1 Ml Inj IV Q5MIN PRN Chest Pain unrelieved by NTG Nifedipine 30 mg 12/11/21 15:00 12/11/21 15:02 Nifedipine Xl 30 Mg Tab PO 30 mg Q12HR [facility] Administration Nitroglycerin 0.4 mg 12/10/21 23:07 Nitroglycerin 0.4 Mg Tab Subl SL Q5M PRN Chest Pain Ondansetron HCl 4 mg 12/10/21 22:08 Ondansetron 4 Mg/2 Ml Inj IV Q8H PRN Nausea And Vomiting Pantoprazole Sodium 40 mg 12/11/21 10:00 12/11/21 11:06 Pantoprazole 40 Mg Tab PO 40 mg QDAY [facility] Administration Sodium Chloride 10 ml 12/11/21 10:00 12/11/21 11:07 Sodium Chloride 0.9% 10 Ml Flush Syringe IV 10 ml BID [facility] Administration Sodium Chloride 10 ml 12/10/21 23:07 Sodium Chloride 0.9% 10 Ml Flush Syringe IV PRN PRN LINE FLUSH Tramadol HCl 50 mg 12/10/21 23:07 Tramadol 50 Mg Tab PO Q6H PRN Pain, Moderate (4-6)
[2021-12-11] MEDS ORDERED: VANCOMYCIN 1,250 MG in SODIUM CHLORIDE 0.9% 250ML 250 ML IV SCH (22:00)
[2021-12-11 22:59] LABS: Platelet Estimate Consistent w Auto; Total Cells Counted 100
[2021-12-12] MEDS: HEPARIN 5,000 UNIT/1 ML VIAL SUB-Q SCH ×3 (06:52→22:20)
[2021-12-12] MEDS: hydrALAZINE 25 MG TAB PO SCH ×3 (06:52→22:19)
--- NOTE | 2021-12-12 11:08 | Progress Note ---
Assessment and Plan Assessment and plan: -- Left foot infection/gangrene toes Will DC Vanco Zosyn and start cefepime 1 g daily[confirmed the dose with pharmacy] Follow cultures, supportive care, elevate the limb --Elevated troponin Aspirin 81 mg p.o. daily. Lipitor 40 mg p.o. daily. Serial cardiac enzymes. Echo 50 to 55%. Borderline pulmonary hypertension Cardiology following --Acute kidney injury; due to vasomotor nephropathy/POA Gentle hydration, closely monitor renal function Avoid nephrotoxins, renal dosing of medications Renal consult if needed -Hypokalemia; Replenished with KCl, Follow electrolytes - Hyperglycemia 1800 kcal ADA diet. Accu-Chek before meals and at bedtime with Humalog moderate dose coverage. Diabetic education --Hypertension Hydralazine 10 mg IV every 6 hours as needed. We continue the home medication. We will monitor the blood pressure closely. Cardiology evaluation -- Peripheral vascular disease Surgery following, check lower extremity arterial Doppler, venous Doppler Consult vascular if needed --Full CODE STATUS -- DVT prophylaxis Heparin 5000 units subcu every 8 hours for DVT prophylaxis. Pepcid 20 mg p.o. twice daily for GI prophylaxis. Closely monitor the patient and adjust management as needed Plan of care reviewed with the patient and her nurse Pelletizer Operator recommendations noted and appreciated Advance care planning +30 minutes I discussed in detail with the patient her condition, I discussed This and reports I the patient the different consultants evaluations and recommendations I discussed with the patient treatment plan. I also discussed with the patient discharge planning. Patient verbalized understanding and agreed with the plan History Interval history: I have seen and examined the patient at the bedside Patient's chart and medications reviewed Patient had an echocardiogram done in the room this morning Patient has no new complaints except for mild pain in the foot Vital signs noted Hospitalist Physical - Constitutional Vitals: Temp Pulse Resp BP Pulse Ox 97.6 F 83 18 97/51 100 12/12/21 08:25 12/12/21 08:25 12/12/21 08:25 12/12/21 08:25 12/12/21 08:25 General appearance: Present: no acute distress, cachectic, other (Patient is frail, lethargic) - EENT Eyes: Present: PERRL, EOM intact - Neck Neck: Present: supple, normal ROM - Respiratory Respiratory effort: normal Respiratory: bilateral: diminished, negative: rales, rhonchi, wheezing - Cardiovascular Rhythm: regular Heart Sounds: Present: S1 & S2 - Extremities Extremities: no ischemia, No edema, abnormal (Left foot gangrene toes/black) - Abdominal General gastrointestinal: soft, non-tender, non-distended, normal bowel sounds - Integumentary Integumentary: Present: clear, warm - Psychiatric Psychiatric: appropriate mood/affect, cooperative - Neurologic Neurologic: moves all extremities HEART Score - HEART Score Troponin: Troponin T 0.060 ng/mL (0.00-0.029) H 12/11/21 07:31 Results - Labs CBC & Chem 7: 12/11/21 07:31 09 07:31 Labs: Laboratory Last Values WBC 15.0 K/mm3 (4.5-11.0) H 12/11/21 07:31 RBC 4.15 M/mm3 (3.65-5.03) 12/11/21 07:31 Hgb 13.8 gm/dl (10.1-14.3) 12/11/21 07:31 Hct 40.8 % (30.3-42.9) 12/11/21 07:31 MCV 98 fl (79-97) H 12/11/21 07:31 MCH 33 pg (28-32) H 12/11/21 07:31 MCHC 34 % (30-34) 12/11/21 07:31 RDW 13.4 % (13.2-15.2) 12/11/21 07:31 Plt Count 327 K/mm3 (140-440) 12/11/21 07:31 Lymph % (Auto) 7.6 % (13.4-35.0) L 12/10/21 18:37 [place] % (Auto) 7.0 % (0.0-7.3) 12/10/21 18:37 Eos % (Auto) 0.3 % (0.0-4.3) 12/10/21 18:37 Baso % (Auto) 0.3 % (0.0-1.8) 12/10/21 18:37 Lymph # (Auto) 1.0 K/mm3 (1.2-5.4) L 12/10/21 18:37 [place] # (Auto) 0.9 K/mm3 (0.0-0.8) H 12/10/21 18:37 Eos # (Auto) 0.0 K/mm3 (0.0-0.4) 12/10/21 18:37 Baso # (Auto) 0.0 K/mm3 (0.0-0.1) 12/10/21 18:37 Add Manual Diff Complete 12/11/21 07:31 Total Counted 100 12/11/21 07:31 Seg Neutrophils % 84.8 % (40.0-70.0) H 12/10/21 18:37 Seg Neuts % (Manual) 83.0 % (40.0-70.0) H 12/11/21 07:31 Band Neutrophils % 0 % 12/11/21 07:31 Lymphocytes % (Manual) 12.0 % (13.4-35.0) L 12/11/21 07:31 Reactive Lymphs % (Man) 0 % 12/11/21 07:31 Monocytes % (Manual) 2.0 % (0.0-7.3) 12/11/21 07:31 Eosinophils % (Manual) 1.0 % (0.0-4.3) 12/11/21 07:31 Basophils % (Manual) 2.0 % (0.0-1.8) H 12/11/21 07:31 Metamyelocytes % 0 % 12/11/21 07:31 Myelocytes % 0 % 12/11/21 07:31 Promyelocytes % 0 % 12/11/21 07:31 Blast Cells % 0 % 12/11/21 07:31 Nucleated RBC % Not Reportable 12/11/21 07:31 Seg Neutrophils # 11.3 K/mm3 (1.8-7.7) H 12/10/21 18:37 Seg Neutrophils # Man 12.5 K/mm3 (1.8-7.7) H 12/11/21 07:31 Band Neutrophils # 0.0 K/mm3 12/11/21 07:31 Lymphocytes # (Manual) 1.8 K/mm3 (1.2-5.4) 12/11/21 07:31 Abs React Lymphs (Man) 0.0 K/mm3 12/11/21 07:31 Monocytes # (Manual) 0.3 K/mm3 (0.0-0.8) 12/11/21 07:31 Eosinophils # (Manual) 0.2 K/mm3 (0.0-0.4) 12/11/21 07:31 Basophils # (Manual) 0.3 K/mm3 (0.0-0.1) H 12/11/21 07:31 Metamyelocytes # 0.0 K/mm3 12/11/21 07:31 Myelocytes # 0.0 K/mm3 12/11/21 07:31 Promyelocytes # 0.0 K/mm3 12/11/21 07:31 Blast Cells # 0.0 K/mm3 12/11/21 07:31 WBC Morphology Not Reportable 12/11/21 07:31 Hypersegmented Neuts Not Reportable 12/11/21 07:31 Hyposegmented Neuts Not Reportable 12/11/21 07:31 Hypogranular Neuts Not Reportable 12/11/21 07:31 Smudge Cells Not Reportable 12/11/21 07:31 Toxic Granulation Not Reportable 12/11/21 07:31 Toxic Vacuolation Not Reportable 12/11/21 07:31 Dohle Bodies Not Reportable 12/11/21 07:31 Pelger-Huet Anomaly Not Reportable 12/11/21 07:31 Ishmael Rods Not Reportable 12/11/21 07:31 Platelet Estimate Consistent w auto 12/11/21 07:31 Clumped Platelets Not Reportable 12/11/21 07:31 Plt Clumps, EDTA Not Reportable 12/11/21 07:31 Large Platelets Not Reportable 12/11/21 07:31 Giant Platelets Not Reportable 12/11/21 07:31 Platelet Satelliting Not Reportable 12/11/21 07:31 Plt Morphology Comment Not Reportable 12/11/21 07:31 RBC Morphology Not Reportable 12/11/21 07:31 Dimorphic RBCs Not Reportable 12/11/21 07:31 Polychromasia Not Reportable 12/11/21 07:31 Hypochromasia Not Reportable 12/11/21 07:31 Poikilocytosis Not Reportable 12/11/21 07:31 Anisocytosis Not Reportable 12/11/21 07:31 Microcytosis Not Reportable 12/11/21 07:31 Macrocytosis Not Reportable 12/11/21 07:31 Spherocytes Not Reportable 12/11/21 07:31 Pappenheimer Bodies Not Reportable 12/11/21 07:31 Sickle Cells Not Reportable 12/11/21 07:31 Target Cells Not Reportable 12/11/21 07:31 Tear Drop Cells Not Reportable 12/11/21 07:31 Ovalocytes Not Reportable 12/11/21 07:31 Helmet Cells Not Reportable 12/11/21 07:31 [place] Bodies Not Reportable 12/11/21 07:31 [place] Rings Not Reportable 12/11/21 07:31 [place] Cells Not Reportable 12/11/21 07:31 Bite Cells Not Reportable 12/11/21 07:31 Crenated Cell Not Reportable 12/11/21 07:31 Elliptocytes Not Reportable 12/11/21 07:31 Acanthocytes (Spur) Not Reportable 12/11/21 07:31 Rouleaux Not Reportable 12/11/21 07:31 Hemoglobin C Crystals Not Reportable 12/11/21 07:31 Schistocytes Not Reportable 12/11/21 07:31 Malaria parasites Not Reportable 12/11/21 07:31 ESR 12 mm/Hr (0-20) 12/10/21 18:37 Thad Bodies Not Reportable 12/11/21 07:31 Hem Pathologist Commnt No 12/11/21 07:31 PT 11.7 Sec. (12.2-14.9) L 12/10/21 20:37 INR 0.76 (0.87-1.13) L 12/10/21 20:37 APTT 25.8 Sec. (24.2-36.6) 12/10/21 20:37 VBG pH 7.516 (7.320-7.420) H 12/10/21 18:37 Sodium 141 mmol/L (137-145) 12/11/21 07:31 Potassium 3.2 mmol/L (3.6-5.0) L 12/11/21 07:31 Chloride 93.5 mmol/L (98-107) L 12/11/21 07:31 Carbon Dioxide 35 mmol/L (22-30) H 12/11/21 07:31 Anion Gap 16 mmol/L 12/11/21 07:31 BUN 44 mg/dL (7-17) H 12/11/21 07:31 Creatinine 1.4 mg/dL (0.6-1.2) H 12/11/21 07:31 Estimated GFR 45 ml/min 12/11/21 07:31 BUN/Creatinine Ratio 31 % 12/11/21 07:31 Glucose 102 mg/dL (65-100) H 12/11/21 07:31 POC Glucose 130 mg/dL (70-105) H 12/11/21 20:12 Lactic Acid 1.70 mmol/L (0.7-2.0) 12/10/21 18:37 Calcium 9.2 mg/dL (8.4-10.2) 12/11/21 07:31 Total Bilirubin 0.70 mg/dL (0.1-1.2) 12/10/21 18:37 AST 29 units/L (5-40) 12/10/21 18:37 ALT 21 units/L (7-56) 12/10/21 18:37 Alkaline Phosphatase 87 units/L (35-129) 12/10/21 18:37 Troponin T 0.060 ng/mL (0.00-0.029) H 12/11/21 07:31 C-Reactive Protein 1.60 mg/dL (0.00-1.30) H 12/10/21 18:37 Total Protein 6.3 g/dL (6.3-8.2) 12/10/21 18:37 Albumin 3.8 g/dL (3.9-5) L 12/10/21 18:37 Albumin/Globulin Ratio 1.5 % 12/10/21 18:37 Triglycerides 183 mg/dL (2-149) H 12/10/21 18:37 Cholesterol 199 mg/dL (50-199) 12/10/21 18:37 LDL Cholesterol Direct 100 mg/dL (50-130) 12/10/21 18:37 HDL Cholesterol 51 mg/dL (40-59) 12/10/21 18:37 Cholesterol/HDL Ratio 3.90 % 12/10/21 18:37 Microbiology: Microbiology 12/10/21 20:05 Peripheral/Venous Blood Culture - Preliminary NO GROWTH AFTER 24 HOURS 12/10/21 20:05 Peripheral/Venous Blood Culture - Preliminary NO GROWTH AFTER 24 HOURS Cheung/IV: Voiding Method External Female Catheter Active Medications - Current Medications Current Medications: Generic Name Dose Route Start Last Admin Trade Name Freq PRN Reason Stop Dose Admin Acetaminophen 650 mg 12/10/21 23:07 Acetaminophen 325 Mg Tab PO Q6H PRN Pain, Mild (1-3) Aspirin 81 mg 12/12/21 10:00 Aspirin Ec 81 Mg Tab PO QDAY [facility] Atorvastatin Calcium 40 mg 12/11/21 22:00 12/11/21 21:54 Atorvastatin 40 Mg Tab PO 40 mg QHS SOLEDAD Administration Dextrose 50 ml 12/10/21 23:07 Dextrose 50% In Water (25gm) 50 Ml Syringe IV Q30MIN PRN Hypoglycemia Protocol Heparin Sodium (Porcine) 5,000 unit 12/11/21 06:00 12/12/21 06:52 Heparin 5,000 Unit/1 Ml Vial SUB-Q 5,000 unit Q8HR SOLEDAD Administration Hydralazine HCl 25 mg 12/11/21 14:00 12/12/21 06:52 Hydralazine 25 Mg Tab PO 25 mg Q8HR SOLEDAD Administration Hydralazine HCl 10 mg 12/11/21 09:30 Hydralazine 20 Mg/1 Ml Inj IV Q4H PRN Hypertension Sodium Chloride 1,000 mls @ 100 mls/hr 12/10/21 23:45 12/11/21 21:35 Nacl 0.45% 1000 Ml IV 100 mls/hr DIRECT SOLEDAD Administration Cefepime HCl 1 gm in 100 mls @ 200 mls/hr 12/12/21 10:00 Cefepime/Ns 1 Gm/100 Ml IV DAILY [facility] Protocol Insulin Human Lispro 0 unit 12/11/21 07:30 12/11/21 21:36 Insulin Lispro 100 Unit/Ml SUB-Q Not Given ACHS [facility] Protocol Metoprolol Tartrate 12.5 mg 12/11/21 10:00 12/11/21 21:56 Metoprolol Tartrate 25 Mg Tab PO 12.5 mg BID SOLEDAD Administration Morphine Sulfate 2 mg 12/10/21 22:08 Morphine 2 Mg/1 Ml Inj IV Q4H PRN Pain, Moderate (4-6) Morphine Sulfate 2 mg 12/10/21 23:07 Morphine 4 Mg/1 Ml Inj IV Q5MIN PRN Chest Pain unrelieved by NTG Nifedipine 30 mg 12/11/21 15:00 12/11/21 21:56 Nifedipine Xl 30 Mg Tab PO 30 mg Q12HR SOLEDAD Administration Nitroglycerin 0.4 mg 12/10/21 23:07 Nitroglycerin 0.4 Mg Tab Subl SL Q5M PRN Chest Pain Ondansetron HCl 4 mg 12/10/21 22:08 Ondansetron 4 Mg/2 Ml Inj IV Q8H PRN Nausea And Vomiting Pantoprazole Sodium 40 mg 12/11/21 10:00 12/11/21 11:06 Pantoprazole 40 Mg Tab PO 40 mg QDAY SOLEDAD Administration Sodium Chloride 10 ml 12/11/21 10:00 12/11/21 21:37 Sodium Chloride 0.9% 10 Ml Flush Syringe IV 10 ml BID SOLEDAD Administration Sodium Chloride 10 ml 12/10/21 23:07 Sodium Chloride 0.9% 10 Ml Flush Syringe IV PRN PRN LINE FLUSH Tramadol HCl 50 mg 12/10/21 23:07 Tramadol 50 Mg Tab PO Q6H PRN Pain, Moderate (4-6) Nutrition/Malnutrition Assess - Dietary Evaluation Nutrition/Malnutrition Findings: Nutrition Notes Start: 12/11/21 15:13 Freq: Status: Active Protocol: Document 12/11/21 15:13 [facility] (Rec: 12/11/21 15:30 [facility] [id number]) Nutrition Notes Need for Assessment generated from: MD Order,fire prevention chief,MST, Education Initial or Follow up Assessment Current Diagnosis Hypertension Other Pertinent Diagnosis (L) foot infection Current Diet Pureed Labs/Tests K 3.2 BUN 44 Cr 1.4 Pertinent Medications 1/2 NS at 100ml/hr, 40mEq KCl Height 5 ft 4 in Weight 34.7 kg [place] Body Weight (kg) 54.54 BMI 13.1 Intake Prior to Admission Poor Weight change and time frame Friend not sure of UBW Weight Status Emaciated Subjective/Other Information RD consulted for diet education; pt not appropriate for diet education. Pt also screened for low BMI and malnutrition screen. She is sleeping soundly at time of visit (13:58); family friend at bedside. Pt was living alone [employer]; pt is s/p fall and has not been well since then. She is weak and very underweight. She has visible muscle and fat loss over all extremities. 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 Burn Absent Trauma Absent Skin Integrity/Comment Pressure ulcers on sacrum Current % PO Negligible Minimum of two criteria Yes Energy Intake (severe) < or equal to 50% Estimated Energy Requirement > or equal to 5 days Body Fat Depletion Moderate depletion (severe) Muscle Mass Moderate Depletion (severe) Reduced Customer Operations Associate Strength Measurably Reduced (severe) #1 Nutrition Diagnosis Malnutrition Etiology acute illness As Evidenced by Signs and Symptoms poor PO intake, subcutaneous fat loss, muscle loss, BMI 13. 1, FTT Is patient on ventilator? No Is Patient Ambulatory and/or Out of Bed No REE-([facility]-confined to bed) 1028.700 Kcal/Kg value to use for calculation 45 Approximate Energy Requirements Using 1562 kcal/Kg Calculation Used for Recommendations Kcal/kg Additional Notes Pro needs 1.25-1.5g/k-52g /day Fluid needs 1ml/kcal Nutrition Intervention Change Diet Order: Continue current diet order as tolerated; provide assistance /encouragement during meal times Add Supplement/Snack (indicate name/kcal Ensure Enlive TID /protein ) Provides kCal: 1,050 Provides Protein (gm) 60 Goal #1 PO intake of meals plus ONS to meet 100% energy and pro needs Goal #2 Wt maintenance and/or gain Anticipated Discharge Needs: Continue ONS 2-3 times per day Follow-Up By: 12/14/21 Additional Comments F/U: intakes (meals, ONS)
[2021-12-12] MEDS: METOPROLOL TARTRATE 25 MG TAB PO SCH ×2 (11:16→22:19)
[2021-12-12] MEDS: CEFEPIME/NS 1 GM/100 ML 1 GM/100 ML BAG IV SCH (11:16)
[2021-12-12] MEDS: NIFEdipine XL 30 MG TAB PO SCH ×2 (11:16→22:20)
[2021-12-12] MEDS: ASPIRIN EC 81 MG TAB PO SCH (11:16)
[2021-12-12] MEDS: PANTOPRAZOLE 40 MG TAB PO SCH (11:16)
[2021-12-12] MEDS: SODIUM CHLORIDE 0.45% 1000 ML 1,000 ML IV SCH ×2 (11:17→22:18)
[2021-12-12] MEDS: INSULIN LISPRO 100 UNIT/ML SUB-Q SCH ×4 (11:17→22:20)
--- NOTE | 2021-12-12 13:44 | Progress Note ---
Assessment and Plan - Patient Problems (1) Uncontrolled hypertension Current Visit: Yes Status: Acute Plan to address problem: 71-year-old woman who presents with severe uncontrolled hypertension, poor oral intake, with multiple metabolic abnormalities including hypokalemia and dehydration. The borderline troponin level in this clinical setting is likely nonspecific finding. Most significant cardiac issues are the uncontrolled hypertension, better controlled on Procardia XL. With regards to abnormal EKG, recommend that an old EKG is obtained for comparative purposes. Echocardiogram is pending for left ventricular function assessment. Subjective Date of service: 12/12/21 Principal diagnosis: Uncontrolled hypertension Interval history: Patient is lethargic, but breathing comfortably in bed. No new cardiac events reported. Blood pressure is well controlled, 110s systolic. Objective Vital Signs Temp Pulse Resp BP BP Pulse Ox 12/12/21 08:25 97.6 F 83 18 97/51 100 12/12/21 04:20 98.0 F 78 17 107/55 99 12/11/21 23:03 97.8 F 74 16 119/70 100 12/11/21 22:00 100 12/11/21 21:56 73 113/68 100 12/11/21 21:55 72 113/68 100 12/11/21 20:10 97.8 F 83 16 101/67 100 12/11/21 15:00 98.0 F 77 18 120/73 100 - Physical Examination General: No Apparent Distress, Cachectic HEENT: Positive: PERRL Neck: Positive: neck supple Cardiac: Positive: Reg Rate and Rhythm Lungs: Positive: Decreased Breath Sounds Neuro: Positive: Weakness (Generalized lethargy) Abdomen: Positive: Soft Skin: Positive: Clear Extremities: Absent: edema
[2021-12-12] MEDS: traMADol 50 MG TAB PO PRN (16:47)
[2021-12-13] MEDS: traMADol 50 MG TAB PO PRN (04:40)
[2021-12-13] MEDS: hydrALAZINE 25 MG TAB PO SCH ×3 (05:44→22:32)
[2021-12-13] MEDS: HEPARIN 5,000 UNIT/1 ML VIAL SUB-Q SCH ×3 (06:15→22:33)
[2021-12-13 06:22] LABS: Basophils # (Auto) 0.1 K/mm3 (0.0-0.1); Basophils % (Auto) 0.8 % (0.0-1.8); Eosinophils # (Auto) 0.2 K/mm3 (0.0-0.4); Hematocrit 32.8 % (30.3-42.9); Hemoglobin 11.6 gm/dl (10.1-14.3); Lymphocytes # (Auto) 1.3 K/mm3 (1.2-5.4); Lymphocytes % (Auto) 13.9 % (13.4-35.0); Mean Corpuscular HGB Conc 35 % (30-34); Mean Corpuscular Volume 98 fl (79-97); Monocytes # (Auto) 0.6 K/mm3 (0.0-0.8); Monocytes % (Auto) 6.7 % (0.0-7.3); Platelet Count 277 K/mm3 (140-440); Red Blood Count 3.35 M/mm3 (3.65-5.03); Red Cell Distribution Width 13.2 % (13.2-15.2)
[2021-12-13 06:42] LABS: Calcium 7.7 mg/dL (8.4-10.2)
[2021-12-13] MEDS: INSULIN LISPRO 100 UNIT/ML SUB-Q SCH ×4 (08:28→22:31)
[2021-12-13] MEDS: SODIUM CHLORIDE 0.45% 1000 ML 1,000 ML IV SCH (09:01)
[2021-12-13] MEDS: CEFEPIME/NS 1 GM/100 ML 1 GM/100 ML BAG IV SCH (09:03)
[2021-12-13] MEDS: ASPIRIN EC 81 MG TAB PO SCH (09:03)
[2021-12-13] MEDS: NIFEdipine XL 30 MG TAB PO SCH ×2 (09:03→22:32)
[2021-12-13] MEDS: METOPROLOL TARTRATE 25 MG TAB PO SCH ×2 (09:03→22:32)
[2021-12-13] MEDS: PANTOPRAZOLE 40 MG TAB PO SCH (09:03)
--- NOTE | 2021-12-13 09:22 | Progress Note ---
Assessment and Plan Assessment and plan: 71-year-old female patient with significant past medical history of hypertension was admitted through emergency room with left foot pain gangrene toes and hypertensive urgency, positive troponins, cardiology surgeon following, vascular studies pending Patient has hypokalemia, hypomagnesemia Replenished with KCl and IV mag sulfate Monitor electrolytes Assessment and plan: -- Left foot infection/gangrene toes Will DC Vanco Zosyn and start cefepime 1 g daily[confirmed the dose with pharmacy] Follow cultures, supportive care, elevate the limb -- Peripheral vascular disease Surgery following, check lower extremity arterial Doppler, venous Doppler Consult vascular after Doppler studies --Elevated troponin Aspirin 81 mg p.o. daily. Lipitor 40 mg p.o. daily. Serial cardiac enzymes. Echo 50 to 55%. Borderline pulmonary hypertension Cardiology following --Acute kidney injury; due to vasomotor nephropathy/POA Gentle hydration, closely monitor renal function Avoid nephrotoxins, renal dosing of medications Renal consult if needed --Hypokalemia; Replenished with KCl, Follow electrolytes 40 mEq KCl x1, follow electrolytes --Hypomagnesemia Magnesium 1.3, 4 g IV, Follow electrolytes -- Hyperglycemia 1800 kcal ADA diet. Accu-Chek before meals and at bedtime with Humalog moderate dose coverage. Diabetic education --Hypertension/well-controlled today Hydralazine 10 mg IV every 6 hours as needed. We continue the home medication. We will monitor the blood pressure closely. Cardiology evaluation --Full CODE STATUS -- DVT prophylaxis Heparin 5000 units subcu every 8 hours for DVT prophylaxis. Pepcid 20 mg p.o. twice daily for GI prophylaxis. Closely monitor the patient and adjust management as needed Plan of care reviewed with the patient and her nurse Ping Pong Table Assembler recommendations noted and appreciated Advance care planning +30 minutes I discussed in detail with the patient her condition, I discussed This and reports I the patient the different consultants evaluations and recommendations I discussed with the patient treatment plan. I also discussed with the patient discharge planning. Patient verbalized understanding and agreed with the plan 12/13/2021; follow vascular studies, magnesium and potassium replaced, follow electrolytes We will consult vascular tomorrow after arterial and venous Doppler studies are completed History Interval history: I have seen and examined the patient at the bedside Patient's chart and medications reviewed Patient feels slightly better Patient's brother was in the room Patient feels slightly better no new complaints Vital signs reviewed Hospitalist Physical - Constitutional Vitals: Temp Pulse Resp BP Pulse Ox 97.4 F L 78 20 100/70 98 12/13/21 03:46 12/13/21 03:46 12/13/21 04:40 12/13/21 03:46 12/13/21 04:47 General appearance: Present: no acute distress, cachectic, other (Patient is frail, lethargic) - EENT Eyes: Present: PERRL, EOM intact - Neck Neck: Present: supple, normal ROM - Respiratory Respiratory effort: normal Respiratory: bilateral: diminished, negative: rales, rhonchi, wheezing - Cardiovascular Rhythm: regular Heart Sounds: Present: S1 & S2 - Extremities Extremities: no ischemia, No edema, abnormal (Gangrene toes left foot) - Abdominal General gastrointestinal: soft, non-tender, non-distended, normal bowel sounds - Integumentary Integumentary: Present: clear, warm - Psychiatric Psychiatric: appropriate mood/affect, cooperative - Neurologic Neurologic: CNII-XII intact, moves all extremities HEART Score - HEART Score Troponin: Troponin T 0.060 ng/mL (0.00-0.029) H 12/11/21 07:31 Results - Labs CBC & Chem 7: 12/13/21 05:33 12/13/21 05:33 Labs: Laboratory Last Values WBC 9.6 K/mm3 (4.5-11.0) 12/13/21 05:33 RBC 3.35 M/mm3 (3.65-5.03) L 12/13/21 05:33 Hgb 11.6 gm/dl (10.1-14.3) 12/13/21 05:33 Hct 32.8 % (30.3-42.9) D 12/13/21 05:33 MCV 98 fl (79-97) H 12/13/21 05:33 MCH 35 pg (28-32) H 12/13/21 05:33 MCHC 35 % (30-34) H 12/13/21 05:33 RDW 13.2 % (13.2-15.2) 12/13/21 05:33 Plt Count 277 K/mm3 (140-440) 12/13/21 05:33 Lymph % (Auto) 13.9 % (13.4-35.0) 12/13/21 05:33 [place] % (Auto) 6.7 % (0.0-7.3) 12/13/21 05:33 Eos % (Auto) 2.0 % (0.0-4.3) 12/13/21 05:33 Baso % (Auto) 0.8 % (0.0-1.8) 12/13/21 05:33 Lymph # (Auto) 1.3 K/mm3 (1.2-5.4) 12/13/21 05:33 [place] # (Auto) 0.6 K/mm3 (0.0-0.8) 12/13/21 05:33 Eos # (Auto) 0.2 K/mm3 (0.0-0.4) 12/13/21 05:33 Baso # (Auto) 0.1 K/mm3 (0.0-0.1) 12/13/21 05:33 Add Manual Diff Complete 12/11/21 07:31 Total Counted 100 12/11/21 07:31 Seg Neutrophils % 76.6 % (40.0-70.0) H 12/13/21 05:33 Seg Neuts % (Manual) 83.0 % (40.0-70.0) H 12/11/21 07:31 Band Neutrophils % 0 % 12/11/21 07:31 Lymphocytes % (Manual) 12.0 % (13.4-35.0) L 12/11/21 07:31 Reactive Lymphs % (Man) 0 % 12/11/21 07:31 Monocytes % (Manual) 2.0 % (0.0-7.3) 12/11/21 07:31 Eosinophils % (Manual) 1.0 % (0.0-4.3) 12/11/21 07:31 Basophils % (Manual) 2.0 % (0.0-1.8) H 12/11/21 07:31 Metamyelocytes % 0 % 12/11/21 07:31 Myelocytes % 0 % 12/11/21 07:31 Promyelocytes % 0 % 12/11/21 07:31 Blast Cells % 0 % 12/11/21 07:31 Nucleated RBC % Not Reportable 12/11/21 07:31 Seg Neutrophils # 7.3 K/mm3 (1.8-7.7) 12/13/21 05:33 Seg Neutrophils # Man 12.5 K/mm3 (1.8-7.7) H 12/11/21 07:31 Band Neutrophils # 0.0 K/mm3 12/11/21 07:31 Lymphocytes # (Manual) 1.8 K/mm3 (1.2-5.4) 12/11/21 07:31 Abs React Lymphs (Man) 0.0 K/mm3 12/11/21 07:31 Monocytes # (Manual) 0.3 K/mm3 (0.0-0.8) 12/11/21 07:31 Eosinophils # (Manual) 0.2 K/mm3 (0.0-0.4) 12/11/21 07:31 Basophils # (Manual) 0.3 K/mm3 (0.0-0.1) H 12/11/21 07:31 Metamyelocytes # 0.0 K/mm3 12/11/21 07:31 Myelocytes # 0.0 K/mm3 12/11/21 07:31 Promyelocytes # 0.0 K/mm3 12/11/21 07:31 Blast Cells # 0.0 K/mm3 12/11/21 07:31 WBC Morphology Not Reportable 12/11/21 07:31 Hypersegmented Neuts Not Reportable 12/11/21 07:31 Hyposegmented Neuts Not Reportable 12/11/21 07:31 Hypogranular Neuts Not Reportable 12/11/21 07:31 Smudge Cells Not Reportable 12/11/21 07:31 Toxic Granulation Not Reportable 12/11/21 07:31 Toxic Vacuolation Not Reportable 12/11/21 07:31 Dohle Bodies Not Reportable 12/11/21 07:31 Pelger-Huet Anomaly Not Reportable 12/11/21 07:31 Ishmael Rods Not Reportable 12/11/21 07:31 Platelet Estimate Consistent w auto 12/11/21 07:31 Clumped Platelets Not Reportable 12/11/21 07:31 Plt Clumps, EDTA Not Reportable 12/11/21 07:31 Large Platelets Not Reportable 12/11/21 07:31 Giant Platelets Not Reportable 12/11/21 07:31 Platelet Satelliting Not Reportable 12/11/21 07:31 Plt Morphology Comment Not Reportable 12/11/21 07:31 RBC Morphology Not Reportable 12/11/21 07:31 Dimorphic RBCs Not Reportable 12/11/21 07:31 Polychromasia Not Reportable 12/11/21 07:31 Hypochromasia Not Reportable 12/11/21 07:31 Poikilocytosis Not Reportable 12/11/21 07:31 Anisocytosis Not Reportable 12/11/21 07:31 Microcytosis Not Reportable 12/11/21 07:31 Macrocytosis Not Reportable 12/11/21 07:31 Spherocytes Not Reportable 12/11/21 07:31 Pappenheimer Bodies Not Reportable 12/11/21 07:31 Sickle Cells Not Reportable 12/11/21 07:31 Target Cells Not Reportable 12/11/21 07:31 Tear Drop Cells Not Reportable 12/11/21 07:31 Ovalocytes Not Reportable 12/11/21 07:31 Helmet Cells Not Reportable 12/11/21 07:31 [place] Bodies Not Reportable 12/11/21 07:31 [place] Rings Not Reportable 12/11/21 07:31 [place] Cells Not Reportable 12/11/21 07:31 Bite Cells Not Reportable 12/11/21 07:31 Crenated Cell Not Reportable 12/11/21 07:31 Elliptocytes Not Reportable 12/11/21 07:31 Acanthocytes (Spur) Not Reportable 12/11/21 07:31 Rouleaux Not Reportable 12/11/21 07:31 Hemoglobin C Crystals Not Reportable 12/11/21 07:31 Schistocytes Not Reportable 12/11/21 07:31 Malaria parasites Not Reportable 12/11/21 07:31 ESR 12 mm/Hr (0-20) 12/10/21 18:37 Thad Bodies Not Reportable 12/11/21 07:31 Hem Pathologist Commnt No 12/11/21 07:31 PT 11.7 Sec. (12.2-14.9) L 12/10/21 20:37 INR 0.76 (0.87-1.13) L 12/10/21 20:37 APTT 25.8 Sec. (24.2-36.6) 12/10/21 20:37 VBG pH 7.516 (7.320-7.420) H 12/10/21 18:37 Sodium 134 mmol/L (137-145) L 12/13/21 05:33 Potassium 3.5 mmol/L (3.6-5.0) L 12/13/21 05:33 Chloride 96.2 mmol/L (98-107) L 12/13/21 05:33 Carbon Dioxide 27 mmol/L (22-30) D 12/13/21 05:33 Anion Gap 14 mmol/L 12/13/21 05:33 BUN 28 mg/dL (7-17) H 12/13/21 05:33 Creatinine 1.2 mg/dL (0.6-1.2) 12/13/21 05:33 Estimated GFR 54 ml/min 12/13/21 05:33 BUN/Creatinine Ratio 23 % 12/13/21 05:33 Glucose 76 mg/dL (65-100) 12/13/21 05:33 POC Glucose 122 mg/dL (70-105) H 12/12/21 20:06 Lactic Acid 1.70 mmol/L (0.7-2.0) 12/10/21 18:37 Calcium 7.7 mg/dL (8.4-10.2) L D 12/13/21 05:33 Magnesium 1.30 mg/dL (1.7-2.3) L 12/13/21 05:33 Total Bilirubin 0.70 mg/dL (0.1-1.2) 12/10/21 18:37 AST 29 units/L (5-40) 12/10/21 18:37 ALT 21 units/L (7-56) 12/10/21 18:37 Alkaline Phosphatase 87 units/L (35-129) 12/10/21 18:37 Troponin T 0.060 ng/mL (0.00-0.029) H 12/11/21 07:31 C-Reactive Protein 1.60 mg/dL (0.00-1.30) H 12/10/21 18:37 Total Protein 6.3 g/dL (6.3-8.2) 12/10/21 18:37 Albumin 3.8 g/dL (3.9-5) L 12/10/21 18:37 Albumin/Globulin Ratio 1.5 % 12/10/21 18:37 Triglycerides 183 mg/dL (2-149) H 12/10/21 18:37 Cholesterol 199 mg/dL (50-199) 12/10/21 18:37 LDL Cholesterol Direct 100 mg/dL (50-130) 12/10/21 18:37 HDL Cholesterol 51 mg/dL (40-59) 12/10/21 18:37 Cholesterol/HDL Ratio 3.90 % 12/10/21 18:37 Microbiology: Microbiology 12/10/21 20:05 Peripheral/Venous Blood Culture - Preliminary NO GROWTH AFTER 48 HOURS 12/10/21 20:05 Peripheral/Venous Blood Culture - Preliminary NO GROWTH AFTER 48 HOURS [place]/IV: Voiding Method External Female Catheter Active Medications - Current Medications Current Medications: Generic Name Dose Route Start Last Admin Trade Name Freq PRN Reason Stop Dose Admin Acetaminophen 650 mg 12/10/21 23:07 12/12/21 11:15 Acetaminophen 325 Mg Tab PO 650 mg Q6H PRN Administration Pain, Mild (1-3) Aspirin 81 mg 12/12/21 10:00 12/13/21 09:03 Aspirin Ec 81 Mg Tab PO 81 mg QDAY SOLEDAD Administration Atorvastatin Calcium 40 mg 12/11/21 22:00 12/12/21 22:19 Atorvastatin 40 Mg Tab PO 40 mg QHS SOLEDAD Administration Dextrose 50 ml 12/10/21 23:07 Dextrose 50% In Water (25gm) 50 Ml Syringe IV Q30MIN PRN Hypoglycemia Protocol Heparin Sodium (Porcine) 5,000 unit 12/11/21 06:00 12/13/21 06:15 Heparin 5,000 Unit/1 Ml Vial SUB-Q 5,000 unit Q8HR SOLEDAD Administration Hydralazine HCl 25 mg 12/11/21 14:00 12/13/21 05:44 Hydralazine 25 Mg Tab PO Not Given Q8HR SOLEDAD Hydralazine HCl 10 mg 12/11/21 09:30 Hydralazine 20 Mg/1 Ml Inj IV Q4H PRN Hypertension Cefepime HCl 1 gm in 100 mls @ 200 mls/hr 12/12/21 10:00 12/13/21 09:03 Cefepime/Ns 1 Gm/100 Ml IV 200 mls/hr DAILY SOLEDAD Administration Protocol Magnesium Sulfate 4 gm in 100 mls @ 25 mls/hr 12/13/21 09:11 Magnesium Sulfate 4gm/100ml IV 12/13/21 13:10 ONCE ONE Insulin Human Lispro 0 unit 12/11/21 07:30 12/13/21 08:28 Insulin Lispro 100 Unit/Ml SUB-Q Not Given [facility] Protocol Metoprolol Tartrate 12.5 mg 12/11/21 10:00 12/13/21 09:03 Metoprolol Tartrate 25 Mg Tab PO 12.5 mg BID SOLEDAD Administration Morphine Sulfate 2 mg 12/10/21 22:08 Morphine 2 Mg/1 Ml Inj IV Q4H PRN Pain, Moderate (4-6) Morphine Sulfate 2 mg 12/10/21 23:07 Morphine 4 Mg/1 Ml Inj IV Q5MIN PRN Chest Pain unrelieved by NTG Nifedipine 30 mg 12/11/21 15:00 12/13/21 09:03 Nifedipine Xl 30 Mg Tab PO 30 mg Q12HR SOLEDAD Administration Nitroglycerin 0.4 mg 12/10/21 23:07 Nitroglycerin 0.4 Mg Tab Subl SL Q5M PRN Chest Pain Ondansetron HCl 4 mg 12/10/21 22:08 Ondansetron 4 Mg/2 Ml Inj IV Q8H PRN Nausea And Vomiting Pantoprazole Sodium 40 mg 12/11/21 10:00 12/13/21 09:03 Pantoprazole 40 Mg Tab PO 40 mg QDAY SOLEDAD Administration Potassium Chloride 40 meq 12/13/21 09:11 Potassium Chloride Er 20 Meq Tab PO 12/13/21 09:12 ONCE ONE Sodium Chloride 10 ml 12/11/21 10:00 12/13/21 09:04 Sodium Chloride 0.9% 10 Ml Flush Syringe IV 10 ml BID SOLEDAD Administration Sodium Chloride 10 ml 12/10/21 23:07 Sodium Chloride 0.9% 10 Ml Flush Syringe IV PRN PRN LINE FLUSH Tramadol HCl 50 mg 12/10/21 23:07 12/13/21 04:40 Tramadol 50 Mg Tab PO 50 mg Q6H PRN Administration Pain, Moderate (4-6) Nutrition/Malnutrition Assess - Dietary Evaluation Nutrition/Malnutrition Findings: Nutrition Notes Start: 12/11/21 15:13 Freq: Status: Active Protocol: Document 12/11/21 15:13 ROGELIO (Rec: 12/11/21 15:30 NHHARPREET [id number]) Nutrition Notes Need for Assessment generated from: MD Order,talent management manager,MST, Education Initial or Follow up Assessment Current Diagnosis Hypertension Other Pertinent Diagnosis (L) foot infection Current Diet Pureed Labs/Tests K 3.2 BUN 44 Cr 1.4 Pertinent Medications 1/2 NS at 100ml/hr, 40mEq KCl Height 5 ft 4 in Weight 34.7 kg [place] Body Weight (kg) 54.54 BMI 13.1 Intake Prior to Admission Poor Weight change and time frame Friend not sure of UBW Weight Status Emaciated Subjective/Other Information RD consulted for diet education; pt not appropriate for diet education. Pt also screened for low BMI and malnutrition screen. She is sleeping soundly at time of visit (13:58); family friend at bedside. Pt was living alone [place]; pt is s/p fall and has not been well since then. She is weak and very underweight. She has visible muscle and fat loss over all extremities. 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 Burn Absent Trauma Absent Skin Integrity/Comment Pressure ulcers on sacrum Current % PO Negligible Minimum of two criteria Yes Energy Intake (severe) < or equal to 50% Estimated Energy Requirement > or equal to 5 days Body Fat Depletion Moderate depletion (severe) Muscle Mass Moderate Depletion (severe) Reduced Locate Technician Strength Measurably Reduced (severe) #1 Nutrition Diagnosis Malnutrition Etiology acute illness As Evidenced by Signs and Symptoms poor PO intake, subcutaneous fat loss, muscle loss, BMI 13. 1, FTT Is patient on ventilator? No Is Patient Ambulatory and/or Out of Bed No REE-([facility]-confined to bed) 1028.700 Kcal/Kg value to use for calculation 45 Approximate Energy Requirements Using 1562 kcal/Kg Calculation Used for Recommendations Kcal/kg Additional Notes Pro needs 1.25-1.5g/k-52g /day Fluid needs 1ml/kcal Nutrition Intervention Change Diet Order: Continue current diet order as tolerated; provide assistance /encouragement during meal times Add Supplement/Snack (indicate name/kcal Ensure Enlive TID /protein ) Provides kCal: 1,050 Provides Protein (gm) 60 Goal #1 PO intake of meals plus ONS to meet 100% energy and pro needs Goal #2 Wt maintenance and/or gain Anticipated Discharge Needs: Continue ONS 2-3 times per day Follow-Up By: 12/14/21 Additional Comments F/U: intakes (meals, ONS)
[2021-12-13] MEDS ORDERED: MAGNESIUM SULFATE 4 GM/100 ML BAG IV ONE (10:15)
[2021-12-13] MEDS ORDERED: POTASSIUM CHLORIDE ER 20 MEQ TAB PO ONE (10:15)
--- NOTE | 2021-12-13 18:02 | Progress Note ---
Assessment and Plan - Patient Problems (1) Uncontrolled hypertension Current Visit: Yes Status: Acute Plan to address problem: 71-year-old woman who presents with severe uncontrolled hypertension, poor oral intake, with multiple metabolic abnormalities including hypokalemia and dehydration. The borderline troponin level in this clinical setting is likely nonspecific finding. Most significant cardiac issues are the previously uncontrolled hypertension, now controlled on Procardia XL. With regards to abnormal EKG, recommend that an old EKG is obtained for comparative purposes. Echocardiogram shows normal left ventricular systolic function, ejection fract ion 50 to 55%, mild to moderate concentric left ventricular per trophy, no significant valvular pathology. Subjective Date of service: 12/13/21 Principal diagnosis: Uncontrolled hypertension Interval history: Patient is comfortable, no acute distress. No new cardiac events reported. Blood pressure is well controlled, 110s to 120s systolic. Objective Vital Signs Temp Pulse Resp BP BP Pulse Ox 12/13/21 15:43 97.7 F 77 18 125/70 98 12/13/21 14:20 79 109/61 12/13/21 10:00 20 98 12/13/21 08:34 98.5 F 83 18 134/64 98 12/13/21 04:47 98 12/13/21 04:40 20 12/13/21 03:46 97.4 F L 78 18 100/70 99 12/12/21 20:37 98.5 F 84 18 127/70 100 - Physical Examination General: No Apparent Distress, Cachectic HEENT: Positive: PERRL Neck: Positive: neck supple Cardiac: Positive: Reg Rate and Rhythm Lungs: Positive: Decreased Breath Sounds Neuro: Positive: Weakness (Generalized lethargy) Abdomen: Positive: Soft Skin: Positive: Clear Extremities: Absent: edema - Labs and Meds CBC 12/13/21 Range/Units 05:33 WBC 9.6 (4.5-11.0) K/mm3 RBC 3.35 L (3.65-5.03) M/mm3 Hgb 11.6 (10.1-14.3) gm/dl Hct 32.8 D (30.3-42.9) % Plt Count 277 (140-440) K/mm3 Lymph # (Auto) 1.3 (1.2-5.4) K/mm3 [place] # (Auto) 0.6 (0.0-0.8) K/mm3 Eos # (Auto) 0.2 (0.0-0.4) K/mm3 Baso # (Auto) 0.1 (0.0-0.1) K/mm3 Comprehensive Metabolic Panel 12/13/21 Range/Units 05:33 Sodium 134 L (137-145) mmol/L Potassium 3.5 L (3.6-5.0) mmol/L Chloride 96.2 L (98-107) mmol/L Carbon Dioxide 27 D (22-30) mmol/L BUN 28 H (7-17) mg/dL Creatinine 1.2 (0.6-1.2) mg/dL Glucose 76 (65-100) mg/dL Calcium 7.7 L D (8.4-10.2) mg/dL
[2021-12-14 05:44] LABS: Basophils % (Auto) 0.4 % (0.0-1.8); Eosinophils # (Auto) 0.1 K/mm3 (0.0-0.4); Eosinophils % (Auto) 1.5 % (0.0-4.3); Hematocrit 34.3 % (30.3-42.9); Hemoglobin 11.3 gm/dl (10.1-14.3); Lymphocytes # (Auto) 1.2 K/mm3 (1.2-5.4); Lymphocytes % (Auto) 12.8 % (13.4-35.0); Mean Corpuscular HGB Conc 33 % (30-34); Mean Corpuscular Volume 99 fl (79-97); Monocytes # (Auto) 0.7 K/mm3 (0.0-0.8); Monocytes % (Auto) 7.2 % (0.0-7.3); Platelet Count 300 K/mm3 (140-440); Red Blood Count 3.47 M/mm3 (3.65-5.03); Red Cell Distribution Width 13.4 % (13.2-15.2)
[2021-12-14] MEDS: HEPARIN 5,000 UNIT/1 ML VIAL SUB-Q SCH ×3 (05:49→22:34)
[2021-12-14] MEDS: hydrALAZINE 25 MG TAB PO SCH ×3 (05:49→22:32)
[2021-12-14 06:08] LABS: Alanine Aminotransferase 13 units/L (7-56); Albumin 2.8 g/dL (3.9-5); BUN/Creatinine Ratio 22; Blood Urea Nitrogen 20 mg/dL (7-17); Calcium 7.8 mg/dL (8.4-10.2); Hemolysis Index 10
[2021-12-14] MEDS: INSULIN LISPRO 100 UNIT/ML SUB-Q SCH ×4 (08:25→22:44)
--- NOTE | 2021-12-14 09:15 | Progress Note ---
Assessment and Plan Assessment and plan: 71-year-old female patient with significant past medical history of hypertension was admitted through emergency room with left foot pain gangrene toes and hypertensive urgency, positive troponins, cardiology surgeon following, vascular studies pending Patient has hypokalemia, hypomagnesemia Replenished with KCl and IV mag sulfate Monitor electrolytes Assessment and plan: -- Left foot infection/gangrene toes Will DC Vanco Zosyn and start cefepime 1 g daily[confirmed the dose with pharmacy] Follow cultures, supportive care, elevate the limb -- Peripheral vascular disease/critical limb ischemia left Surgery following, check lower extremity arterial Doppler, venous Doppler Consult vascular team after Doppler studies --Elevated troponin Aspirin 81 mg p.o. daily. Lipitor 40 mg p.o. daily. Serial cardiac enzymes. Echo 50 to 55%. Borderline pulmonary hypertension Cardiology following --Acute kidney injury; due to vasomotor nephropathy/POA Gentle hydration, closely monitor renal function Avoid nephrotoxins, renal dosing of medications Renal consult if needed --Hypokalemia; Replenished with KCl, Follow electrolytes 40 mEq KCl x1, follow electrolytes --Hypomagnesemia Magnesium 1.3, 4 g IV, Follow electrolytes -- Hyperglycemia 1800 kcal ADA diet. Accu-Chek before meals and at bedtime with Humalog moderate dose coverage. Diabetic education --Hypertension/well-controlled today Hydralazine 10 mg IV every 6 hours as needed. We continue the home medication. We will monitor the blood pressure closely. Cardiology evaluation --Full CODE STATUS -- DVT prophylaxis Heparin 5000 units subcu every 8 hours for DVT prophylaxis. Pepcid 20 mg p.o. twice daily for GI prophylaxis. Closely monitor the patient and adjust management as needed Plan of care reviewed with the patient and her nurse Cardiac Catheterization Technician recommendations noted and appreciated Advance care planning +30 minutes I discussed in detail with the patient her condition, I discussed This and reports I the patient the different consultants evaluations and recommendations I discussed with the patient treatment plan. I also discussed with the patient discharge planning. Patient verbalized understanding and agreed with the plan 12/13/2021; follow vascular studies, magnesium and potassium replaced, follow electrolytes We will consult vascular tomorrow after arterial and venous Doppler studies are completed 12/14/21; vascular evaluation noted and appreciated, revascularization tomorrow Disposition; follow clinically follow vascular and surgical teams recommen dations History Interval history: Seen and examined the patient at the bedside Patient's chart and medications reviewed No new events reported by nursing Patient complains of some discomfort in the left Vascular study scheduled today Vascular surgeon consulted today Vital signs noted Hospitalist Physical - Constitutional Vitals: Temp Pulse Resp BP Pulse Ox 98.9 F 90 20 129/69 98 12/14/21 08:21 12/14/21 08:21 12/14/21 08:37 12/14/21 08:21 12/14/21 08:37 General appearance: Present: no acute distress, cachectic, other (Patient is frail, lethargic) - EENT Eyes: Present: PERRL, EOM intact - Neck Neck: Present: supple, normal ROM - Respiratory Respiratory effort: normal Respiratory: bilateral: diminished, rhonchi, negative: rales, wheezing - Cardiovascular Rhythm: regular Heart Sounds: Present: S1 & S2 - Extremities Extremities: no ischemia, No edema - Abdominal General gastrointestinal: soft, non-tender, non-distended, normal bowel sounds - Integumentary Integumentary: Present: clear, warm - Psychiatric Psychiatric: appropriate mood/affect, cooperative - Neurologic Neurologic: moves all extremities HEART Score - HEART Score Troponin: Troponin T 0.060 ng/mL (0.00-0.029) H 12/11/21 07:31 Results - Labs CBC & Chem 7: 12/14/21 05:21 12/14/21 05:21 Labs: Laboratory Last Values WBC 9.6 K/mm3 (4.5-11.0) 12/14/21 05:21 RBC 3.47 M/mm3 (3.65-5.03) L 12/14/21 05:21 Hgb 11.3 gm/dl (10.1-14.3) 12/14/21 05:21 Hct 34.3 % (30.3-42.9) 12/14/21 05:21 MCV 99 fl (79-97) H 12/14/21 05:21 MCH 33 pg (28-32) H 12/14/21 05:21 MCHC 33 % (30-34) 12/14/21 05:21 RDW 13.4 % (13.2-15.2) 12/14/21 05:21 Plt Count 300 K/mm3 (140-440) 12/14/21 05:21 Lymph % (Auto) 12.8 % (13.4-35.0) L 12/14/21 05:21 [place] % (Auto) 7.2 % (0.0-7.3) 12/14/21 05:21 Eos % (Auto) 1.5 % (0.0-4.3) 12/14/21 05:21 Baso % (Auto) 0.4 % (0.0-1.8) 12/14/21 05:21 Lymph # (Auto) 1.2 K/mm3 (1.2-5.4) 12/14/21 05:21 [place] # (Auto) 0.7 K/mm3 (0.0-0.8) 12/14/21 05:21 Eos # (Auto) 0.1 K/mm3 (0.0-0.4) 12/14/21 05:21 Baso # (Auto) 0.0 K/mm3 (0.0-0.1) 12/14/21 05:21 Add Manual Diff Complete 12/11/21 07:31 Total Counted 100 12/11/21 07:31 Seg Neutrophils % 78.1 % (40.0-70.0) H 12/14/21 05:21 Seg Neuts % (Manual) 83.0 % (40.0-70.0) H 12/11/21 07:31 Band Neutrophils % 0 % 12/11/21 07:31 Lymphocytes % (Manual) 12.0 % (13.4-35.0) L 12/11/21 07:31 Reactive Lymphs % (Man) 0 % 12/11/21 07:31 Monocytes % (Manual) 2.0 % (0.0-7.3) 12/11/21 07:31 Eosinophils % (Manual) 1.0 % (0.0-4.3) 12/11/21 07:31 Basophils % (Manual) 2.0 % (0.0-1.8) H 12/11/21 07:31 Metamyelocytes % 0 % 12/11/21 07:31 Myelocytes % 0 % 12/11/21 07:31 Promyelocytes % 0 % 12/11/21 07:31 Blast Cells % 0 % 12/11/21 07:31 Nucleated RBC % Not Reportable 12/11/21 07:31 Seg Neutrophils # 7.5 K/mm3 (1.8-7.7) 12/14/21 05:21 Seg Neutrophils # Man 12.5 K/mm3 (1.8-7.7) H 12/11/21 07:31 Band Neutrophils # 0.0 K/mm3 12/11/21 07:31 Lymphocytes # (Manual) 1.8 K/mm3 (1.2-5.4) 12/11/21 07:31 Abs React Lymphs (Man) 0.0 K/mm3 12/11/21 07:31 Monocytes # (Manual) 0.3 K/mm3 (0.0-0.8) 12/11/21 07:31 Eosinophils # (Manual) 0.2 K/mm3 (0.0-0.4) 12/11/21 07:31 Basophils # (Manual) 0.3 K/mm3 (0.0-0.1) H 12/11/21 07:31 Metamyelocytes # 0.0 K/mm3 12/11/21 07:31 Myelocytes # 0.0 K/mm3 12/11/21 07:31 Promyelocytes # 0.0 K/mm3 12/11/21 07:31 Blast Cells # 0.0 K/mm3 12/11/21 07:31 WBC Morphology Not Reportable 12/11/21 07:31 Hypersegmented Neuts Not Reportable 12/11/21 07:31 Hyposegmented Neuts Not Reportable 12/11/21 07:31 Hypogranular Neuts Not Reportable 12/11/21 07:31 Smudge Cells Not Reportable 12/11/21 07:31 Toxic Granulation Not Reportable 12/11/21 07:31 Toxic Vacuolation Not Reportable 12/11/21 07:31 Dohle Bodies Not Reportable 12/11/21 07:31 Pelger-Huet Anomaly Not Reportable 12/11/21 07:31 Ishmael Rods Not Reportable 12/11/21 07:31 Platelet Estimate Consistent w auto 12/11/21 07:31 Clumped Platelets Not Reportable 12/11/21 07:31 Plt Clumps, EDTA Not Reportable 12/11/21 07:31 Large Platelets Not Reportable 12/11/21 07:31 Giant Platelets Not Reportable 12/11/21 07:31 Platelet Satelliting Not Reportable 12/11/21 07:31 Plt Morphology Comment Not Reportable 12/11/21 07:31 RBC Morphology Not Reportable 12/11/21 07:31 Dimorphic RBCs Not Reportable 12/11/21 07:31 Polychromasia Not Reportable 12/11/21 07:31 Hypochromasia Not Reportable 12/11/21 07:31 Poikilocytosis Not Reportable 12/11/21 07:31 Anisocytosis Not Reportable 12/11/21 07:31 Microcytosis Not Reportable 12/11/21 07:31 Macrocytosis Not Reportable 12/11/21 07:31 Spherocytes Not Reportable 12/11/21 07:31 Pappenheimer Bodies Not Reportable 12/11/21 07:31 Sickle Cells Not Reportable 12/11/21 07:31 Target Cells Not Reportable 12/11/21 07:31 Tear Drop Cells Not Reportable 12/11/21 07:31 Ovalocytes Not Reportable 12/11/21 07:31 Helmet Cells Not Reportable 12/11/21 07:31 Stinson-Ideal Bodies Not Reportable 12/11/21 07:31 [place] Rings Not Reportable 12/11/21 07:31 Ramin Cells Not Reportable 12/11/21 07:31 Bite Cells Not Reportable 12/11/21 07:31 Crenated Cell Not Reportable 12/11/21 07:31 Elliptocytes Not Reportable 12/11/21 07:31 Acanthocytes (Spur) Not Reportable 12/11/21 07:31 Rouleaux Not Reportable 12/11/21 07:31 Hemoglobin C Crystals Not Reportable 12/11/21 07:31 Schistocytes Not Reportable 12/11/21 07:31 Malaria parasites Not Reportable 12/11/21 07:31 ESR 12 mm/Hr (0-20) 12/10/21 18:37 Thad Bodies Not Reportable 12/11/21 07:31 Hem Pathologist Commnt No 12/11/21 07:31 PT 11.7 Sec. (12.2-14.9) L 12/10/21 20:37 INR 0.76 (0.87-1.13) L 12/10/21 20:37 APTT 25.8 Sec. (24.2-36.6) 12/10/21 20:37 VBG pH 7.516 (7.320-7.420) H 12/10/21 18:37 Sodium 138 mmol/L (137-145) 12/14/21 05:21 Potassium 3.9 mmol/L (3.6-5.0) 12/14/21 05:21 Chloride 101.7 mmol/L (98-107) 12/14/21 05:21 Carbon Dioxide 26 mmol/L (22-30) 12/14/21 05:21 Anion Gap 14 mmol/L 12/14/21 05:21 BUN 20 mg/dL (7-17) H 12/14/21 05:21 Creatinine 0.9 mg/dL (0.6-1.2) 12/14/21 05:21 Estimated GFR > 60 ml/min 12/14/21 05:21 BUN/Creatinine Ratio 22 % 12/14/21 05:21 Glucose 82 mg/dL (65-100) 12/14/21 05:21 POC Glucose 110 mg/dL (70-105) H 12/13/21 21:19 Lactic Acid 1.70 mmol/L (0.7-2.0) 12/10/21 18:37 Calcium 7.8 mg/dL (8.4-10.2) L 12/14/21 05:21 Magnesium 2.30 mg/dL (1.7-2.3) 12/14/21 05:21 Total Bilirubin 0.90 mg/dL (0.1-1.2) 12/14/21 05:21 AST 20 units/L (5-40) 12/14/21 05:21 ALT 13 units/L (7-56) 12/14/21 05:21 Alkaline Phosphatase 78 units/L (35-129) 12/14/21 05:21 Troponin T 0.060 ng/mL (0.00-0.029) H 12/11/21 07:31 C-Reactive Protein 1.60 mg/dL (0.00-1.30) H 12/10/21 18:37 Total Protein 4.8 g/dL (6.3-8.2) L D 12/14/21 05:21 Albumin 2.8 g/dL (3.9-5) L 12/14/21 05:21 Albumin/Globulin Ratio 1.4 % 12/14/21 05:21 Triglycerides 183 mg/dL (2-149) H 12/10/21 18:37 Cholesterol 199 mg/dL (50-199) 12/10/21 18:37 LDL Cholesterol Direct 100 mg/dL (50-130) 12/10/21 18:37 HDL Cholesterol 51 mg/dL (40-59) 12/10/21 18:37 Cholesterol/HDL Ratio 3.90 % 12/10/21 18:37 Microbiology: Microbiology 12/10/21 20:05 Peripheral/Venous Blood Culture - Preliminary NO GROWTH AFTER 72 HOURS 12/10/21 20:05 Peripheral/Venous Blood Culture - Preliminary NO GROWTH AFTER 72 HOURS [place]/IV: Voiding Method External Female Catheter Active Medications - Current Medications Current Medications: Generic Name Dose Route Start Last Admin Trade Name Freq PRN Reason Stop Dose Admin Acetaminophen 650 mg 12/10/21 23:07 12/12/21 11:15 Acetaminophen 325 Mg Tab PO 650 mg Q6H PRN Administration Pain, Mild (1-3) Aspirin 81 mg 12/12/21 10:00 12/13/21 09:03 Aspirin Ec 81 Mg Tab PO 81 mg QDAY SOLEDAD Administration Atorvastatin Calcium 40 mg 12/11/21 22:00 12/13/21 22:32 Atorvastatin 40 Mg Tab PO 40 mg QHS SOLEDAD Administration Dextrose 50 ml 12/10/21 23:07 Dextrose 50% In Water (25gm) 50 Ml Syringe IV Q30MIN PRN Hypoglycemia Protocol Heparin Sodium (Porcine) 5,000 unit 12/11/21 06:00 12/14/21 05:49 Heparin 5,000 Unit/1 Ml Vial SUB-Q 5,000 unit Q8HR SOLEDAD Administration Hydralazine HCl 25 mg 12/11/21 14:00 12/14/21 05:49 Hydralazine 25 Mg Tab PO 25 mg Q8HR SOLEDAD Administration Hydralazine HCl 10 mg 12/11/21 09:30 Hydralazine 20 Mg/1 Ml Inj IV Q4H PRN Hypertension Cefepime HCl 1 gm in 100 mls @ 200 mls/hr 12/12/21 10:00 12/13/21 09:03 Cefepime/Ns 1 Gm/100 Ml IV 200 mls/hr DAILY SOLEDAD Administration Protocol Insulin Human Lispro 0 unit 12/11/21 07:30 12/14/21 08:25 Insulin Lispro 100 Unit/Ml SUB-Q Not Given ACHS [facility] Protocol Metoprolol Tartrate 12.5 mg 12/11/21 10:00 12/13/21 22:32 Metoprolol Tartrate 25 Mg Tab PO 12.5 mg BID SOLEDAD Administration Morphine Sulfate 2 mg 12/10/21 22:08 Morphine 2 Mg/1 Ml Inj IV Q4H PRN Pain, Moderate (4-6) Morphine Sulfate 2 mg 12/10/21 23:07 Morphine 4 Mg/1 Ml Inj IV Q5MIN PRN Chest Pain unrelieved by NTG Nifedipine 30 mg 12/11/21 15:00 12/13/21 22:32 Nifedipine Xl 30 Mg Tab PO 30 mg Q12HR SOLEDAD Administration Nitroglycerin 0.4 mg 12/10/21 23:07 Nitroglycerin 0.4 Mg Tab Subl SL Q5M PRN Chest Pain Ondansetron HCl 4 mg 12/10/21 22:08 Ondansetron 4 Mg/2 Ml Inj IV Q8H PRN Nausea And Vomiting Pantoprazole Sodium 40 mg 12/11/21 10:00 12/13/21 09:03 Pantoprazole 40 Mg Tab PO 40 mg QDAY SOLEDAD Administration Sodium Chloride 10 ml 12/11/21 10:00 12/13/21 22:33 Sodium Chloride 0.9% 10 Ml Flush Syringe IV 10 ml BID SOLEDAD Administration Sodium Chloride 10 ml 12/10/21 23:07 Sodium Chloride 0.9% 10 Ml Flush Syringe IV PRN PRN LINE FLUSH Tramadol HCl 50 mg 12/10/21 23:07 12/13/21 04:40 Tramadol 50 Mg Tab PO 50 mg Q6H PRN Administration Pain, Moderate (4-6) Nutrition/Malnutrition Assess - Dietary Evaluation Nutrition/Malnutrition Findings: Nutrition Notes Start: 12/11/21 15:13 Freq: Status: Active Protocol: Document 12/11/21 15:13 ROGELIO (Rec: 12/11/21 15:30 ROGELIO [id number]) Nutrition Notes Need for Assessment generated from: MD Order,surveying crew rodman,MST, Education Initial or Follow up Assessment Current Diagnosis Hypertension Other Pertinent Diagnosis (L) foot infection Current Diet Pureed Labs/Tests K 3.2 BUN 44 Cr 1.4 Pertinent Medications 1/2 NS at 100ml/hr, 40mEq KCl Height 5 ft 4 in Weight 34.7 kg [place] Body Weight (kg) 54.54 BMI 13.1 Intake Prior to Admission Poor Weight change and time frame Friend not sure of UBW Weight Status Emaciated Subjective/Other Information RD consulted for diet education; pt not appropriate for diet education. Pt also screened for low BMI and malnutrition screen. She is sleeping soundly at time of visit (13:58); family friend at bedside. Pt was living alone [employer]EPING [employer]; pt is s/p fall and has not been well since then. She is weak and very underweight. She has visible muscle and fat loss over all extremities. 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 Burn Absent Trauma Absent Skin Integrity/Comment Pressure ulcers on sacrum Current % PO Negligible Minimum of two criteria Yes Energy Intake (severe) < or equal to 50% Estimated Energy Requirement > or equal to 5 days Body Fat Depletion Moderate depletion (severe) Muscle Mass Moderate Depletion (severe) Reduced Pony Worker Strength Measurably Reduced (severe) #1 Nutrition Diagnosis Malnutrition Etiology acute illness As Evidenced by Signs and Symptoms poor PO intake, subcutaneous fat loss, muscle loss, BMI 13. 1, FTT Is patient on ventilator? No Is Patient Ambulatory and/or Out of Bed No REE-([facility]-confined to bed) 1028.700 Kcal/Kg value to use for calculation 45 Approximate Energy Requirements Using 1562 kcal/Kg Calculation Used for Recommendations Kcal/kg Additional Notes Pro needs 1.25-1.5g/k-52g /day Fluid needs 1ml/kcal Nutrition Intervention Change Diet Order: Continue current diet order as tolerated; provide assistance /encouragement during meal times Add Supplement/Snack (indicate name/kcal Ensure Enlive TID /protein ) Provides kCal: 1,050 Provides Protein (gm) 60 Goal #1 PO intake of meals plus ONS to meet 100% energy and pro needs Goal #2 Wt maintenance and/or gain Anticipated Discharge Needs: Continue ONS 2-3 times per day Follow-Up By: 12/14/21 Additional Comments F/U: intakes (meals, ONS)
[2021-12-14] MEDS: PANTOPRAZOLE 40 MG TAB PO SCH (09:36)
[2021-12-14] MEDS: METOPROLOL TARTRATE 25 MG TAB PO SCH ×3 (09:36→22:34)
[2021-12-14] MEDS: ASPIRIN EC 81 MG TAB PO SCH (09:36)
[2021-12-14] MEDS: NIFEdipine XL 30 MG TAB PO SCH ×3 (09:36→22:32)
[2021-12-14] MEDS: CEFEPIME/NS 1 GM/100 ML 1 GM/100 ML BAG IV SCH (09:37)
--- NOTE | 2021-12-14 11:10 | Progress Note ---
Assessment and Plan - Patient Problems (1) Uncontrolled hypertension Current Visit: Yes Status: Acute Plan to address problem: 71-year-old woman who presents with severe uncontrolled hypertension, poor oral intake, with multiple metabolic abnormalities including hypokalemia and dehydration. The borderline troponin level in this clinical setting is likely nonspecific finding. Most significant cardiac issues are the previously uncontrolled hypertension, now controlled on Procardia XL. With regards to abnormal EKG, recommend that an old EKG is obtained for comparative purposes. Echocardiogram shows normal left ventricular systolic function, ejection fract ion 50 to 55%, mild to moderate concentric left ventricular per trophy, no significant valvular pathology. Subjective Date of service: 12/14/21 Principal diagnosis: Uncontrolled hypertension Interval history: Patient is comfortable, no acute distress. No new cardiac events reported. Blood pressure is well controlled, 110s to 120s systolic. Objective Vital Signs Temp Pulse Resp BP Pulse Ox 12/14/21 08:37 20 98 12/14/21 08:21 98.9 F 90 18 129/69 98 12/14/21 04:24 98.3 F 85 20 134/66 96 12/13/21 23:50 98.3 F 87 20 123/62 97 12/13/21 20:37 98 12/13/21 20:03 97.9 F 85 16 132/71 96 12/13/21 15:43 97.7 F 77 18 125/70 98 12/13/21 14:20 79 109/61 - Physical Examination General: No Apparent Distress, Cachectic HEENT: Positive: PERRL Neck: Positive: neck supple Cardiac: Positive: Reg Rate and Rhythm Lungs: Positive: Decreased Breath Sounds Neuro: Positive: Weakness (Generalized lethargy) Abdomen: Positive: Soft Skin: Positive: Clear Extremities: Absent: edema - Labs and Meds Cardiac Enzymes 12/14/21 Range/Units 05:21 AST 20 (5-40) units/L CBC 12/14/21 Range/Units 05:21 WBC 9.6 (4.5-11.0) K/mm3 RBC 3.47 L (3.65-5.03) M/mm3 Hgb 11.3 (10.1-14.3) gm/dl Hct 34.3 (30.3-42.9) % Plt Count 300 (140-440) K/mm3 Lymph # (Auto) 1.2 (1.2-5.4) K/mm3 [place] # (Auto) 0.7 (0.0-0.8) K/mm3 Eos # (Auto) 0.1 (0.0-0.4) K/mm3 Baso # (Auto) 0.0 (0.0-0.1) K/mm3 Comprehensive Metabolic Panel 12/14/21 Range/Units 05:21 Sodium 138 (137-145) mmol/L Potassium 3.9 (3.6-5.0) mmol/L Chloride 101.7 (98-107) mmol/L Carbon Dioxide 26 (22-30) mmol/L BUN 20 H (7-17) mg/dL Creatinine 0.9 (0.6-1.2) mg/dL Glucose 82 (65-100) mg/dL Calcium 7.8 L (8.4-10.2) mg/dL AST 20 (5-40) units/L ALT 13 (7-56) units/L Alkaline Phosphatase 78 (35-129) units/L Total Protein 4.8 L D (6.3-8.2) g/dL Albumin 2.8 L (3.9-5) g/dL
--- NOTE | 2021-12-14 11:51 | Vascular Lab Report ---
DUPLEX DOPPLER LOWER EXTREMITY VEINS, BILATERAL INDICATION: pain/ gangrene lt.foot. TECHNIQUE: Duplex doppler imaging was performed through the veins of both lower extremities using ve nous compression and other maneuvers. COMPARISON: No relevant prior imaging study available. FINDINGS: Right Common femoral vein: Negative. Right Superficial femoral vein: Negative. Right Popliteal vein: Negative. Right Calf veins: Negative. Left Common femoral vein: Negative. Left Superficial femoral vein: Negative. Left Popliteal vein: Negative. Left Calf veins: Negative. Additional findings: None. IMPRESSION: No sonographic evidence for DVT in either lower extremity. Signer Name: Isidoro Barreto Jr, MD Signed: 12/14/2021 11:46 AM Workstation Name: [id number]
--- NOTE | 2021-12-14 12:04 | Vascular Lab Report ---
DUPLEX DOPPLER LOWER EXTREMITY ARTERIAL, LEFT INDICATION: Peripheral vascular disease/gangrene toes. TECHNIQUE: Arterial duplex examination of the left lower extremity performed using B-mode, color flow and spectr al Doppler assessment. FINDINGS: LEFT: Common Femoral Artery: PSV 160 cm/sec. Triphasic waveform. Proximal SFA: PSV 99 cm/sec. Triphasic waveform. Mid SFA: PSV 0 cm/sec. Occluded. Distal SFA: PSV 47 cm/sec. Monophasic waveform. Popliteal artery: PSV 32 cm/sec. Monophasic waveform. Posterior tibial artery: PSV 37 cm/sec. Monophasic waveform. Anterior tibial artery: 16 cm/sec. Monophasic waveform. Dorsalis Pedis Artery: PSV 0 cm/sec. Occluded. Additional findings. Scattered calcific plaques are noted throughout the right lower extremity arteri al structures. IMPRESSION: Moderate diffuse atherosclerotic disease. The mid superficial femoral artery and dorsalis pedis are occluded. There is monophasic waveforms in the distal superficial femoral artery, popliteal artery and anterior /posterior tibial arteries. Doppler Waveform: * Triphasic is normal. * Biphasic is abnormal if clear transition from triphasic signal along vascular tree. * Monophasic is abnormal. Signer Name: Isidoro Barreto Jr, MD Signed: 12/14/2021 12:00 PM Workstation Name: [id number]
--- NOTE | 2021-12-14 16:24 | Consultation ---
History of Present Illness - Reason for Consult Consult date: 12/14/21 Left lower extremity gangrene Requesting physician: ROXI HUSSEIN - History of Present Illness 71-year-old female with history of hypertension, poor appetite and elevated blood sugar was brought to the hospital because of left foot pain. Family states the patient fell a few days ago and has not been her normal self since. The patient reports that 3 months ago she dropped some condiments on her left foot and they have worsened in this period of time. Vascular ultrasound demonstrates left SFA occlusive disease. The patient has palpable right pedal pulses and nonpalpable left pedal pulses. There is dark discoloration consistent with ischemia and bruising of the tips of the left toes. There is some gangrene of the left fifth digit. Patient has full motor function, and intact sensation, but significant pain of her left toes which prevent her from sleeping. Discussed with family risks, benefits, and alternatives of endovascular revascularization of the left lower extremity. Family agrees with plan for procedure. This is for limb threatening ulceration of the left toes. Past History Past Medical History: diabetes, hypertension Past Surgical History: No surgical history Social history: smoking, alcohol abuse Family history: hypertension Medications and Allergies Allergies Allergy/AdvReac Type Severity Reaction Status Date / Time No Known Allergies Allergy Verified 12/10/21 16:19 Home Medications Medication Instructions Recorded Confirmed Last Taken Type Amlodipine Besylate 5 PO DAILY 12/11/21 12/11/21 Unknown History DULoxetine [Cymbalta] 30 mg PO BID 12/11/21 12/11/21 Unknown History Doxycycline Monohydrate 100 mg PO BID 12/11/21 12/11/21 Unknown History [Doxycycline Monohydrate CAP] Gabapentin 100 mg PO BID 12/11/21 12/11/21 Unknown History Megestrol Acetate 40 mg PO DAILY 12/11/21 12/11/21 Unknown History QUEtiapine [SEROquel] 12.5 mg PO HS 12/11/21 12/11/21 Unknown History Vitamin D3 50,000UNIT CAP 50,000 units PO 1XW 12/11/21 12/11/21 Unknown History Active Meds: Active Medications Acetaminophen (Acetaminophen 325 Mg Tab) 650 mg PO Q6H PRN PRN Reason: Pain, Mild (1-3) Last Admin: 12/12/21 11:15 Dose: 650 mg Aspirin (Aspirin Ec 81 Mg Tab) 81 mg PO QDAY [facility] Last Admin: 12/14/21 09:36 Dose: 81 mg Atorvastatin Calcium (Atorvastatin 40 Mg Tab) 40 mg PO QHS [facility] Last Admin: 12/13/21 22:32 Dose: 40 mg Dextrose (Dextrose 50% In Water (25gm) 50 Ml Syringe) 50 ml IV Q30MIN PRN; Protocol PRN Reason: Hypoglycemia Heparin Sodium (Porcine) (Heparin 5,000 Unit/1 Ml Vial) 5,000 unit SUB-Q Q8HR [facility] Last Admin: 12/14/21 14:41 Dose: 5,000 unit Hydralazine HCl (Hydralazine 25 Mg Tab) 25 mg PO Q8HR [facility] Last Admin: 12/14/21 14:36 Dose: Not Given Hydralazine HCl (Hydralazine 20 Mg/1 Ml Inj) 10 mg IV Q4H PRN PRN Reason: Hypertension Cefepime HCl (Cefepime/Ns 1 Gm/100 Ml) 1 gm in 100 mls @ 200 mls/hr IV DAILY [facility]; Protocol Last Admin: 12/14/21 09:37 Dose: 200 mls/hr Insulin Human Lispro (Insulin Lispro 100 Unit/Ml) 0 unit SUB-Q ACHS [facility]; Protocol Last Admin: 12/14/21 12:52 Dose: Not Given Metoprolol Tartrate (Metoprolol Tartrate 25 Mg Tab) 12.5 mg PO BID [facility] Last Admin: 12/14/21 09:45 Dose: Not Given Morphine Sulfate (Morphine 2 Mg/1 Ml Inj) 2 mg IV Q4H PRN PRN Reason: Pain, Moderate (4-6) Morphine Sulfate (Morphine 4 Mg/1 Ml Inj) 2 mg IV Q5MIN PRN PRN Reason: Chest Pain unrelieved by NTG Nifedipine (Nifedipine Xl 30 Mg Tab) 30 mg PO Q12HR [facility] Last Admin: 12/14/21 09:45 Dose: Not Given Nitroglycerin (Nitroglycerin 0.4 Mg Tab Subl) 0.4 mg SL Q5M PRN PRN Reason: Chest Pain Ondansetron HCl (Ondansetron 4 Mg/2 Ml Inj) 4 mg IV Q8H PRN PRN Reason: Nausea And Vomiting Pantoprazole Sodium (Pantoprazole 40 Mg Tab) 40 mg PO QDAY [facility] Last Admin: 12/14/21 09:36 Dose: 40 mg Sodium Chloride (Sodium Chloride 0.9% 10 Ml Flush Syringe) 10 ml IV BID [facility] Last Admin: 12/14/21 09:37 Dose: 10 ml Sodium Chloride (Sodium Chloride 0.9% 10 Ml Flush Syringe) 10 ml IV PRN PRN PRN Reason: LINE FLUSH Tramadol HCl (Tramadol 50 Mg Tab) 50 mg PO Q6H PRN PRN Reason: Pain, Moderate (4-6) Last Admin: 12/13/21 04:40 Dose: 50 mg Review of Systems All systems: negative (see HPI) Exam - Constitutional Vitals: Temp Pulse Resp BP Pulse Ox 98.0 F 101 H 16 144/71 99 12/14/21 15:23 12/14/21 15:23 12/14/21 15:23 12/14/21 15:23 12/14/21 15:23 General appearance: Present: mild distress (Pain of the left toes) - EENT Eyes: Present: EOM intact ENT: hearing intact - Respiratory Respiratory effort: normal - Extremities Extremities: pulses intact (Right pedal pulses), normal temperature, abnormal (Discoloration of all of the distal digits of the left foot compatible with a combination of bruising and ischemia with some gangrene of the left fifth digit) Extremity abnormal: pulses diminished (Nonpalpable left pedal pulses) - Abdominal General gastrointestinal: Present: soft, non-tender - Psychiatric Psychiatric: appropriate mood/affect, cooperative Results - Labs CBC & Chem 7: 12/14/21 05:21 12/14/21 05:21 Labs: Abnormal lab results 12/13/21 12/14/21 12/14/21 Range/Units 21:19 05:21 05:21 RBC 3.47 L (3.65-5.03) M/mm3 MCV 99 H (79-97) fl MCH 33 H (28-32) pg Lymph % (Auto) 12.8 L (13.4-35.0) % Seg Neutrophils % 78.1 H (40.0-70.0) % BUN 20 H (7-17) mg/dL POC Glucose 110 H (70-105) mg/dL Calcium 7.8 L (8.4-10.2) mg/dL Total Protein 4.8 L D (6.3-8.2) g/dL Albumin 2.8 L (3.9-5) g/dL 12/14/21 12/14/21 Range/Units 11:19 15:25 RBC (3.65-5.03) M/mm3 MCV (79-97) fl MCH (28-32) pg Lymph % (Auto) (13.4-35.0) % Seg Neutrophils % (40.0-70.0) % BUN (7-17) mg/dL POC Glucose 129 H 134 H (70-105) mg/dL Calcium (8.4-10.2) mg/dL Total Protein (6.3-8.2) g/dL Albumin (3.9-5) g/dL Assessment and Plan 71-year-old female with left superficial femoral artery occlusion and a com bination of bruised and ischemic toes of the left lower extremity with some gangrene of the left fifth digit. Discussed risk, benefits, and alternatives of left lower extremity endovascular revascularization. This is for critical limb ischemia. Patient will also need to be followed by wound care. Discussed with Dr. Cruz who has no active reasons why the patient cannot proceed with revascularization. Plan for revascularization tomorrow.
--- NOTE | 2021-12-14 16:38 | Progress Note ---
Assessment and Plan 71-year-old female with history of hypertension, poor appetite and elevated blood sugar was brought to the hospital because of left foot pain. Family states the patient fell a few days ago and has not been her normal self since. Patient states she felt several weeks ago and hurt her right foot. Patient gives her pain a score of 5/10. Patient with left foot ischemia and extensive occlusive disease of the left lower extremity. Dr. Childers's evaluation much appreciated. She is scheduled for revascularization procedure for tomorrow. Subjective Date of service: 12/14/21 Patient Reports: Positive: no new complaints, still having pain Narrative: Patient with left foot ischemia and extensive occlusive disease of the left lower extremity. Dr. Childers's evaluation much appreciated. She is scheduled for revascularization procedure for tomorrow. Objective Vital Signs - 12hr 12/14/21 12/14/21 12/14/21 08:21 08:37 14:36 Temperature 98.9 F Pulse Rate 90 94 H Respiratory 18 20 Rate Blood Pressure 129/69 129/74 O2 Sat by Pulse 98 98 Oximetry 12/14/21 15:23 Temperature 98.0 F Pulse Rate 101 H Respiratory 16 Rate Blood Pressure 144/71 O2 Sat by Pulse 99 Oximetry - Labs 12/14/21 05:21 12/14/21 05:21 Diabetes panel 12/14/21 Range/Units 05:21 Sodium 138 (137-145) mmol/L Potassium 3.9 (3.6-5.0) mmol/L Chloride 101.7 (98-107) mmol/L Carbon Dioxide 26 (22-30) mmol/L BUN 20 H (7-17) mg/dL Creatinine 0.9 (0.6-1.2) mg/dL Glucose 82 (65-100) mg/dL Calcium 7.8 L (8.4-10.2) mg/dL AST 20 (5-40) units/L ALT 13 (7-56) units/L Alkaline Phosphatase 78 (35-129) units/L Total Protein 4.8 L D (6.3-8.2) g/dL Albumin 2.8 L (3.9-5) g/dL Calcium panel 12/14/21 Range/Units 05:21 Calcium 7.8 L (8.4-10.2) mg/dL Albumin 2.8 L (3.9-5) g/dL Pituitary panel 12/14/21 Range/Units 05:21 Sodium 138 (137-145) mmol/L Potassium 3.9 (3.6-5.0) mmol/L Chloride 101.7 (98-107) mmol/L Carbon Dioxide 26 (22-30) mmol/L BUN 20 H (7-17) mg/dL Creatinine 0.9 (0.6-1.2) mg/dL Glucose 82 (65-100) mg/dL Calcium 7.8 L (8.4-10.2) mg/dL Adrenal panel 12/14/21 Range/Units 05:21 Sodium 138 (137-145) mmol/L Potassium 3.9 (3.6-5.0) mmol/L Chloride 101.7 (98-107) mmol/L Carbon Dioxide 26 (22-30) mmol/L BUN 20 H (7-17) mg/dL Creatinine 0.9 (0.6-1.2) mg/dL Glucose 82 (65-100) mg/dL Calcium 7.8 L (8.4-10.2) mg/dL Total Bilirubin 0.90 (0.1-1.2) mg/dL AST 20 (5-40) units/L ALT 13 (7-56) units/L Alkaline Phosphatase 78 (35-129) units/L Total Protein 4.8 L D (6.3-8.2) g/dL Albumin 2.8 L (3.9-5) g/dL
[2021-12-14] MEDS: traMADol 50 MG TAB PO PRN (22:33)
[2021-12-15] MEDS: HEPARIN 5,000 UNIT/1 ML VIAL SUB-Q SCH ×3 (06:31→22:58)
[2021-12-15] MEDS: hydrALAZINE 25 MG TAB PO SCH ×2 (06:32→22:56)
[2021-12-15] MEDS: INSULIN LISPRO 100 UNIT/ML SUB-Q SCH ×4 (08:00→22:58)
[2021-12-15] MEDS: METOPROLOL TARTRATE 25 MG TAB PO SCH ×2 (10:00→22:56)
[2021-12-15] MEDS: PANTOPRAZOLE 40 MG TAB PO SCH (10:00)
[2021-12-15] MEDS: CEFEPIME/NS 1 GM/100 ML 1 GM/100 ML BAG IV SCH (10:00)
[2021-12-15] MEDS: NIFEdipine XL 30 MG TAB PO SCH ×2 (10:00→22:56)
[2021-12-15] MEDS ORDERED: HEPARIN/NS 5000 UNIT/500ML 1,000 ML IR ONE (10:29)
[2021-12-15] MEDS ORDERED: LIDOCAINE 2%/EPINEPHRINE 1:200,000 VIAL (20 ML) INFILTRATI ONE (10:29)
--- NOTE | 2021-12-15 10:30 | Progress Note ---
Assessment and Plan Assessment and plan: 71-year-old female with history of hypertension, poor appetite and uncontrolled diabetes mellitus type 2 was brought to the hospital because of left foot pain. Patient with left foot ischemia and extensive occlusive disease of the left lower extremity. The patient was admitted with diagnosis below -- Left foot infection/gangrene toes Will DC Vanco Zosyn and start cefepime 1 g daily[confirmed the dose with pharmacy] Follow cultures, supportive care, elevate the limb -- Peripheral vascular disease/critical limb ischemia left Surgery following, check lower extremity arterial Doppler, venous Doppler Consult vascular team after Doppler studies --Elevated troponin Aspirin 81 mg p.o. daily. Lipitor 40 mg p.o. daily. Serial cardiac enzymes. Echo 50 to 55%. Borderline pulmonary hypertension Cardiology following --Acute kidney injury; due to vasomotor nephropathy/POA Gentle hydration, closely monitor renal function Avoid nephrotoxins, renal dosing of medications Renal consult if needed --Hypokalemia; Replenished with KCl, Follow electrolytes 40 mEq KCl x1, follow electrolytes --Hypomagnesemia Magnesium 1.3, 4 g IV, Follow electrolytes -- Hyperglycemia 1800 kcal ADA diet. Accu-Chek before meals and at bedtime with Humalog moderate dose coverage. Diabetic education --Hypertension/well-controlled today Hydralazine 10 mg IV every 6 hours as needed. We continue the home medication. We will monitor the blood pressure closely. Cardiology evaluation Hospital course: 12/13/2021; follow vascular studies, magnesium and potassium replaced, follow electrolytes We will consult vascular tomorrow after arterial and venous Doppler studies are completed 12/14/21; vascular evaluation noted and appreciated, revascularization tomorrow 12/15/2021. Vascular ultrasound demonstrates left SVA occlusive disease. The patient has palpable right pedal pulses and nonpalpable left pedal pulses. Patient also with gangrene of the left fifth digit. Vascular surgery to perform revascularization today. Continue tight glycemic control to promote wound healing. Replete electrolytes as needed. Follow-up BMP for acute kidney injury secondary to vasomotor nephropathy History Interval history: No new issues overnight Hospitalist Physical - Constitutional Vitals: Temp Pulse Resp BP Pulse Ox 97.6 F 86 18 107/64 92 12/15/21 05:00 12/15/21 05:00 12/15/21 05:00 12/15/21 06:32 12/15/21 05:00 General appearance: Present: no acute distress, cachectic, other (Patient is frail, lethargic) - EENT Eyes: Present: PERRL, EOM intact ENT: hearing intact, clear oral mucosa, dentition normal - Neck Neck: Present: supple, normal ROM - Respiratory Respiratory effort: normal Respiratory: bilateral: CTA - Cardiovascular Rhythm: regular Heart Sounds: Present: S1 & S2. Absent: gallop, rub - Extremities Extremities: no ischemia, No edema, Full ROM - Abdominal General gastrointestinal: soft, non-tender, non-distended, normal bowel sounds - Integumentary Integumentary: Present: clear, warm, dry - Neurologic Neurologic: CNII-XII intact, moves all extremities HEART Score - HEART Score Troponin: Troponin T 0.060 ng/mL (0.00-0.029) H 12/11/21 07:31 Results - Labs CBC & Chem 7: 12/14/21 05:21 12/14/21 05:21 Labs: Laboratory Last Values WBC 9.6 K/mm3 (4.5-11.0) 12/14/21 05:21 RBC 3.47 M/mm3 (3.65-5.03) L 12/14/21 05:21 Hgb 11.3 gm/dl (10.1-14.3) 12/14/21 05:21 Hct 34.3 % (30.3-42.9) 12/14/21 05:21 MCV 99 fl (79-97) H 12/14/21 05:21 MCH 33 pg (28-32) H 12/14/21 05:21 MCHC 33 % (30-34) 12/14/21 05:21 RDW 13.4 % (13.2-15.2) 12/14/21 05:21 Plt Count 300 K/mm3 (140-440) 12/14/21 05:21 Lymph % (Auto) 12.8 % (13.4-35.0) L 12/14/21 05:21 [place] % (Auto) 7.2 % (0.0-7.3) 12/14/21 05:21 Eos % (Auto) 1.5 % (0.0-4.3) 12/14/21 05:21 Baso % (Auto) 0.4 % (0.0-1.8) 12/14/21 05:21 Lymph # (Auto) 1.2 K/mm3 (1.2-5.4) 12/14/21 05:21 [place] # (Auto) 0.7 K/mm3 (0.0-0.8) 12/14/21 05:21 Eos # (Auto) 0.1 K/mm3 (0.0-0.4) 12/14/21 05:21 Baso # (Auto) 0.0 K/mm3 (0.0-0.1) 12/14/21 05:21 Add Manual Diff Complete 12/11/21 07:31 Total Counted 100 12/11/21 07:31 Seg Neutrophils % 78.1 % (40.0-70.0) H 12/14/21 05:21 Seg Neuts % (Manual) 83.0 % (40.0-70.0) H 12/11/21 07:31 Band Neutrophils % 0 % 12/11/21 07:31 Lymphocytes % (Manual) 12.0 % (13.4-35.0) L 12/11/21 07:31 Reactive Lymphs % (Man) 0 % 12/11/21 07:31 Monocytes % (Manual) 2.0 % (0.0-7.3) 12/11/21 07:31 Eosinophils % (Manual) 1.0 % (0.0-4.3) 12/11/21 07:31 Basophils % (Manual) 2.0 % (0.0-1.8) H 12/11/21 07:31 Metamyelocytes % 0 % 12/11/21 07:31 Myelocytes % 0 % 12/11/21 07:31 Promyelocytes % 0 % 12/11/21 07:31 Blast Cells % 0 % 12/11/21 07:31 Nucleated RBC % Not Reportable 12/11/21 07:31 Seg Neutrophils # 7.5 K/mm3 (1.8-7.7) 12/14/21 05:21 Seg Neutrophils # Man 12.5 K/mm3 (1.8-7.7) H 12/11/21 07:31 Band Neutrophils # 0.0 K/mm3 12/11/21 07:31 Lymphocytes # (Manual) 1.8 K/mm3 (1.2-5.4) 12/11/21 07:31 Abs React Lymphs (Man) 0.0 K/mm3 12/11/21 07:31 Monocytes # (Manual) 0.3 K/mm3 (0.0-0.8) 12/11/21 07:31 Eosinophils # (Manual) 0.2 K/mm3 (0.0-0.4) 12/11/21 07:31 Basophils # (Manual) 0.3 K/mm3 (0.0-0.1) H 12/11/21 07:31 Metamyelocytes # 0.0 K/mm3 12/11/21 07:31 Myelocytes # 0.0 K/mm3 12/11/21 07:31 Promyelocytes # 0.0 K/mm3 12/11/21 07:31 Blast Cells # 0.0 K/mm3 12/11/21 07:31 WBC Morphology Not Reportable 12/11/21 07:31 Hypersegmented Neuts Not Reportable 12/11/21 07:31 Hyposegmented Neuts Not Reportable 12/11/21 07:31 Hypogranular Neuts Not Reportable 12/11/21 07:31 Smudge Cells Not Reportable 12/11/21 07:31 Toxic Granulation Not Reportable 12/11/21 07:31 Toxic Vacuolation Not Reportable 12/11/21 07:31 Dohle Bodies Not Reportable 12/11/21 07:31 Pelger-Huet Anomaly Not Reportable 12/11/21 07:31 Ishmael Rods Not Reportable 12/11/21 07:31 Platelet Estimate Consistent w auto 12/11/21 07:31 Clumped Platelets Not Reportable 12/11/21 07:31 Plt Clumps, EDTA Not Reportable 12/11/21 07:31 Large Platelets Not Reportable 12/11/21 07:31 Giant Platelets Not Reportable 12/11/21 07:31 Platelet Satelliting Not Reportable 12/11/21 07:31 Plt Morphology Comment Not Reportable 12/11/21 07:31 RBC Morphology Not Reportable 12/11/21 07:31 Dimorphic RBCs Not Reportable 12/11/21 07:31 Polychromasia Not Reportable 12/11/21 07:31 Hypochromasia Not Reportable 12/11/21 07:31 Poikilocytosis Not Reportable 12/11/21 07:31 Anisocytosis Not Reportable 12/11/21 07:31 Microcytosis Not Reportable 12/11/21 07:31 Macrocytosis Not Reportable 12/11/21 07:31 Spherocytes Not Reportable 12/11/21 07:31 Pappenheimer Bodies Not Reportable 12/11/21 07:31 Sickle Cells Not Reportable 12/11/21 07:31 Target Cells Not Reportable 12/11/21 07:31 Tear Drop Cells Not Reportable 12/11/21 07:31 Ovalocytes Not Reportable 12/11/21 07:31 Helmet Cells Not Reportable 12/11/21 07:31 [place] Bodies Not Reportable 12/11/21 07:31 [place] Rings Not Reportable 12/11/21 07:31 Ramin Cells Not Reportable 12/11/21 07:31 Bite Cells Not Reportable 12/11/21 07:31 Crenated Cell Not Reportable 12/11/21 07:31 Elliptocytes Not Reportable 12/11/21 07:31 Acanthocytes (Spur) Not Reportable 12/11/21 07:31 Rouleaux Not Reportable 12/11/21 07:31 Hemoglobin C Crystals Not Reportable 12/11/21 07:31 Schistocytes Not Reportable 12/11/21 07:31 Malaria parasites Not Reportable 12/11/21 07:31 ESR 12 mm/Hr (0-20) 12/10/21 18:37 Thad Bodies Not Reportable 12/11/21 07:31 Hem Pathologist Commnt No 12/11/21 07:31 PT 11.7 Sec. (12.2-14.9) L 12/10/21 20:37 INR 0.76 (0.87-1.13) L 12/10/21 20:37 APTT 25.8 Sec. (24.2-36.6) 12/10/21 20:37 VBG pH 7.516 (7.320-7.420) H 12/10/21 18:37 Sodium 138 mmol/L (137-145) 12/14/21 05:21 Potassium 3.9 mmol/L (3.6-5.0) 12/14/21 05:21 Chloride 101.7 mmol/L (98-107) 12/14/21 05:21 Carbon Dioxide 26 mmol/L (22-30) 12/14/21 05:21 Anion Gap 14 mmol/L 12/14/21 05:21 BUN 20 mg/dL (7-17) H 12/14/21 05:21 Creatinine 0.9 mg/dL (0.6-1.2) 12/14/21 05:21 Estimated GFR > 60 ml/min 12/14/21 05:21 BUN/Creatinine Ratio 22 % 12/14/21 05:21 Glucose 82 mg/dL (65-100) 12/14/21 05:21 POC Glucose 100 mg/dL (70-105) 12/14/21 20:46 Lactic Acid 1.70 mmol/L (0.7-2.0) 12/10/21 18:37 Calcium 7.8 mg/dL (8.4-10.2) L 12/14/21 05:21 Magnesium 2.30 mg/dL (1.7-2.3) 12/14/21 05:21 Total Bilirubin 0.90 mg/dL (0.1-1.2) 12/14/21 05:21 AST 20 units/L (5-40) 12/14/21 05:21 ALT 13 units/L (7-56) 12/14/21 05:21 Alkaline Phosphatase 78 units/L (35-129) 12/14/21 05:21 Troponin T 0.060 ng/mL (0.00-0.029) H 12/11/21 07:31 C-Reactive Protein 1.60 mg/dL (0.00-1.30) H 12/10/21 18:37 Total Protein 4.8 g/dL (6.3-8.2) L D 12/14/21 05:21 Albumin 2.8 g/dL (3.9-5) L 12/14/21 05:21 Albumin/Globulin Ratio 1.4 % 12/14/21 05:21 Triglycerides 183 mg/dL (2-149) H 12/10/21 18:37 Cholesterol 199 mg/dL (50-199) 12/10/21 18:37 LDL Cholesterol Direct 100 mg/dL (50-130) 12/10/21 18:37 HDL Cholesterol 51 mg/dL (40-59) 12/10/21 18:37 Cholesterol/HDL Ratio 3.90 % 12/10/21 18:37 Microbiology: Microbiology 12/10/21 20:05 Peripheral/Venous Blood Culture - Preliminary NO GROWTH AFTER 4 DAYS 12/10/21 20:05 Peripheral/Venous Blood Culture - Preliminary NO GROWTH AFTER 4 DAYS 12/10/21 14:30 Foot - Left Wound Culture - Final Naomi Albicans Cheung/IV: Voiding Method Bedside Commode Active Medications - Current Medications Current Medications: Generic Name Dose Route Start Last Admin Trade Name Freq PRN Reason Stop Dose Admin Acetaminophen 650 mg 12/10/21 23:07 12/12/21 11:15 Acetaminophen 325 Mg Tab PO 650 mg Q6H PRN Administration Pain, Mild (1-3) Aspirin 81 mg 12/12/21 10:00 12/14/21 09:36 Aspirin Ec 81 Mg Tab PO 81 mg QDAY [facility] Administration Atorvastatin Calcium 40 mg 12/11/21 22:00 12/14/21 22:35 Atorvastatin 40 Mg Tab PO 40 mg QHS [facility] Administration Dextrose 50 ml 12/10/21 23:07 Dextrose 50% In Water (25gm) 50 Ml Syringe IV Q30MIN PRN Hypoglycemia Protocol Heparin Sodium (Porcine) 5,000 unit 12/11/21 06:00 12/15/21 06:31 Heparin 5,000 Unit/1 Ml Vial SUB-Q Not Given Q8HR [facility] Hydralazine HCl 25 mg 12/11/21 14:00 12/15/21 06:32 Hydralazine 25 Mg Tab PO Not Given Q8HR [facility] Hydralazine HCl 10 mg 12/11/21 09:30 Hydralazine 20 Mg/1 Ml Inj IV Q4H PRN Hypertension Cefepime HCl 1 gm in 100 mls @ 200 mls/hr 12/12/21 10:00 12/14/21 09:37 Cefepime/Ns 1 Gm/100 Ml IV 200 mls/hr DAILY [facility] Administration Protocol Insulin Human Lispro 0 unit 12/11/21 07:30 12/14/21 22:44 Insulin Lispro 100 Unit/Ml SUB-Q Not Given ACHS [facility] Protocol Metoprolol Tartrate 12.5 mg 12/11/21 10:00 12/14/21 22:34 Metoprolol Tartrate 25 Mg Tab PO 12.5 mg BID [facility] Administration Morphine Sulfate 2 mg 12/10/21 22:08 Morphine 2 Mg/1 Ml Inj IV Q4H PRN Pain, Moderate (4-6) Morphine Sulfate 2 mg 12/10/21 23:07 Morphine 4 Mg/1 Ml Inj IV Q5MIN PRN Chest Pain unrelieved by NTG Nifedipine 30 mg 12/11/21 15:00 12/14/21 22:32 Nifedipine Xl 30 Mg Tab PO 30 mg Q12HR [facility] Administration Nitroglycerin 0.4 mg 12/10/21 23:07 Nitroglycerin 0.4 Mg Tab Subl SL Q5M PRN Chest Pain Ondansetron HCl 4 mg 12/10/21 22:08 Ondansetron 4 Mg/2 Ml Inj IV Q8H PRN Nausea And Vomiting Pantoprazole Sodium 40 mg 12/11/21 10:00 12/14/21 09:36 Pantoprazole 40 Mg Tab PO 40 mg QDAY [facility] Administration Sodium Chloride 10 ml 12/11/21 10:00 12/14/21 22:35 Sodium Chloride 0.9% 10 Ml Flush Syringe IV 10 ml BID [facility] Administration Sodium Chloride 10 ml 12/10/21 23:07 Sodium Chloride 0.9% 10 Ml Flush Syringe IV PRN PRN LINE FLUSH Tramadol HCl 50 mg 12/10/21 23:07 12/14/21 22:33 Tramadol 50 Mg Tab PO 50 mg Q6H PRN Administration Pain, Moderate (4-6) Nutrition/Malnutrition Assess - Dietary Evaluation Nutrition/Malnutrition Findings: Nutrition Notes Start: 12/11/21 15:13 Freq: Status: Active Protocol: Document 12/14/21 10:53 CM (Rec: 12/14/21 10:57 CM [email or web address]) Co-Sign 12/14/21 10:53 WW Nutrition Notes Initial or Follow up Reassessment Current Diagnosis Acute Kidney Injury, Hypertension Other Pertinent Diagnosis L Foot infection/gangrene Current Diet Mechanical Soft Labs/Tests Reviewed Pertinent Medications 12/14: Atorvastatin Height 5 ft 4 in Weight 40 kg [place] Body Weight (kg) 54.54 BMI 15.1 Intake Prior to Admission Poor Weight change and time frame Daughter reported steady decrease of weight over the past year. 98lb UBW as of 1 week ago per pt - pt's daughter disagrees that it has been much longer than 1 week. Daughter reported ~30lb wt loss over the past 3-4 months. Weight Status Emaciated Subjective/Other Information RD follow-up per protocol. Pt reported early satiety and no appetite with minimal intake over past 2 weeks - mainly consumes alcohol and minimal intake has been ongoing per daughter. Daughter reported that pt refuses to eat and has lost significant weight over the past year with unsure etiology . Pt prescribed appetite stimulates at home - recommend continuing during LOS. Ensure x3 visible unopened on table at time of visit - breakfast tray untouched. Nutrition-focused physical examination performed revealing significant muscle wasting/subcutaneous fat loss - indicative of severe malnutrition. Recommend adding Thiamine and Folic Acid to medication regimen. Percent of energy/protein needs met: Mechanical Soft Diet provides 2048cal/97g PRO q day (128%/ 161%) Burn Absent Trauma Absent GI Symptoms Other Food Allergy No Skin Integrity/Comment Pressure ulcers on sacrum Current % PO Negligible Minimum of two criteria Yes Energy Intake (severe) < or equal to 50% Estimated Energy Requirement > or equal to 5 days Body Fat Depletion Moderate depletion (severe) Muscle Mass Moderate Depletion (severe) Reduced [employer] Strength Measurably Reduced (severe) #1 Nutrition Diagnosis Malnutrition As Evidenced by Signs and Symptoms Extended poor PO intake, muscle wasting (mandaeism, acromion, clavicle, calves, anterior thigh, patellar) / subcutaneous fat loss (triceps , orbitals), BMI 15.1kg/m2 Diagnosis Progress(for reassessment Continues documentation) Is patient on ventilator? No Is Patient Ambulatory and/or Out of Bed No REE-([place]-confined to bed) 1092.240 Kcal/Kg value to use for calculation 40 Approximate Energy Requirements Using 1600 kcal/Kg Calculation Used for Recommendations Kcal/kg Additional Notes Protein: 1.2-1.5g/kg ABW; 48- 60g PRO q day. Fluids: 30mL/kcal or per MD Nutrition Intervention Change Diet Order: Continue current diet; provide assistance/encouragement during meal times. Add Supplement/Snack (indicate name/kcal Ensure Enlive TID /protein ) Provides kCal: 1,050 Provides Protein (gm) 60 Goal #1 Pt to consume >75% of estimated energy/protein needs through current diet order / supplementation Goal #2 Pt to maintain current wt status within 2.5% during LOS Anticipated Discharge Needs: Continue nutritional supplements 2-3 times per day Follow-Up By: 12/17/21 Additional Comments Monitor %PO intake, GI symptoms, and wt status.
[2021-12-15] MEDS ORDERED: SODIUM CHLORIDE 0.9% 1000 ML 1,000 ML ONE (10:53)
[2021-12-15] MEDS: MIDAZOLAM 2 MG/2 ML INJ ONE ×3 (11:10→12:20)
[2021-12-15] MEDS: fentaNYL 100 MCG/2 ML INJ ONE ×3 (11:10→12:20)
[2021-12-15] MEDS ORDERED: HEPARIN 10,000 UNITS/10 ML VIAL ONE (11:24)
[2021-12-15] MEDS ORDERED: HEPARIN/NS 5000 UNIT/500ML 500 ML IR ONE (11:45)
[2021-12-15] MEDS ORDERED: ONDANSETRON 4 MG/2 ML INJ ONE (12:05)
[2021-12-15] MEDS ORDERED: CLOPIDOGREL 300 MG TAB ONE (12:26)
[2021-12-15] MEDS ORDERED: ASPIRIN 81 MG TAB CHEW ONE (12:27)
--- NOTE | 2021-12-15 12:35 | Operative Report ---
Operative Report Operative Report: EXAM: 1. Ultrasound-guided access of the right common femoral artery. 2. Angiography of the right lower extremity. 3. Selection of the abdominal aorta with angiography. 4. Selection of the left external iliac artery, profunda femoral artery, and superficial femoral artery with angiography of the left lower extremity. 5. 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 6. Fluoroscopic guided placement of a 5 mm spider embolic protection device in the left popliteal artery. 7. Atherectomy of the left distal superficial femoral artery with a Interacting Technologykone M device 8. Angioplasty of the left distal superficial femoral artery to 4 mm x 80 mm angioplasty balloon, 4 mm 150 mm [place] angioplasty balloon. 9. Stenting of the left distal superficial femoral artery with a 6 mm x 80 mm Mei which was postdilated with a 5 mm x 40 mm angioplasty balloon. 10. Fluoroscopic guided retrieval of the left popliteal artery embolic protection device. 11. Closure of the right common femoral artery with a 6 Mal[place]ian Pro style DATE: 12/15/2021 PROPOSITION PLAYER: NADEGE LEA MD INDICATION: Critical limb ischemia of the left lower extremity with ulceration of the toes and severe peripheral vascular disease. MEDICATIONS: Please see nursing report for full details. DEVICES: Please see examination above CONTRAST: Please see Story Writer note for full details PROCEDURE: The risks, benefits, and alternatives were discussed with the patient; written informed consent was obtained. Patient was brought to the angiography suite and prepped and draped in sterile fashion. The right common femoral artery was evaluated with ultrasound and was patent. Under direct ultrasound guidance, the right common femoral artery was accessed with a 21-gauge micropuncture needle. 0.018 inch wire was passed into the aorta. Needle was exchanged for transitional dilator. Wire was exchanged for a 0.035 inch wire. Transitional dilator was exchanged for 5 Maldivian sheath. Digital subtraction angiography was performed demonstrating appropriate puncture, above the bifurcation below the inferior epigastric artery. The right external iliac artery, common femoral artery, proximal profunda femoral artery and proximal superficial femoral artery were patent. The abdominal aorta was selected and digital subtraction angiography was performed. Left external iliac artery was selected and digital subtraction angiography was performed. The left profunda femoral artery was selected and digital subtraction angiography was performed. The left superficial femoral artery was selected and digital subtraction angiography was performed. Digital subtraction angiography demonstrated patency of the infrarenal abdominal aorta, right common iliac artery, external iliac artery, and internal iliac artery. The left mid common iliac artery has a 40% stenosis. Left external renan ac artery and internal iliac artery are patent. Left common femoral artery, profunda femoral artery, and proximal and mid superficial femoral artery are patent. The left distal superficial femoral a rtery is occluded with reconstitution of the [id number] popliteal artery. The mid knee and below the knee popliteal artery are small but patent. Anterior tibial artery is occluded soon after takeoff. There is no reconstitution in the foot. The tibioperoneal trunk is at least a 50% distal stenosis but the vessel itself is very small in diameter. This vessel measures approximately 1.5 mm to 1 mm in diameter. It tibioperoneal trunk is quite diffusely small but provides flow to the distal calf. The dominant flow to the foot is through the posterior tibial artery which is patent throughout its course and provides flow through the foot to the common, medial, and lateral peroneal artery which are all quite small. After reviewing the diagnostic imaging, I determined the patient required an intervention. The patient was heparinized. Sheath was exchanged for 7 Maldivian 45 cm [place] destination positioned in the left proximal superficial femoral artery. Wire and catheter were used to cross the distal superficial femoral artery chronic total occlusion. Digital subtraction angiography was performed in the popliteal artery confirming position. 5 mm spider embolic protection device was deployed in the popliteal artery. Atherectomy was performed of the distal superficial femoral artery. Afterwards, 4 mm x 80 mm angioplasty balloon and 4 mm x 150 mm [place] angioplasty balloon was used to perform angioplasty. Digital subtraction angiography was performed in multiple obliquities, but patient had a significant amount of movement. There appeared to be a flow- limiting dissection in the vessel combined with a small amount of thrombus. 6 mm x 80 mm Mei stent was then deployed over the left distal superficial femoral artery and the region was postdilated with a 5 mm x 40 mm angioplasty balloon. Digital subtraction angiography was performed demonstrating no residual stenosis with prompt flow through the distal superficial femoral artery. There is some debris in the embolic protection device. The embolic protection device was then retrieved. Digital subtraction angiography was performed demonstrating unchanged runoff. During the procedure, the patient was appropriately sedated, but would move her left leg. I decided that no further intervention could be performed of the left lower extremity due to patient noncompliance with procedure. At this point all wires, catheters, and sheaths were retracted to the right external iliac artery and the right common femoral artery arteriotomy was then closed with a 6 Mal[place]ian Pro style device. Sterile dressing and pressure dressing applied. The patient tolerated the procedure well. No immediate postprocedural complications. FINDINGS: Please see procedure note above. IMPRESSION: Successful angioplasty, atherectomy, and stenting of the left distal superficial femoral artery.
--- NOTE | 2021-12-15 12:44 | Progress Note ---
Assessment and Plan - Patient Problems (1) Uncontrolled hypertension Current Visit: Yes Status: Acute Plan to address problem: 71-year-old woman who presents with severe uncontrolled hypertension, poor oral intake, with multiple metabolic abnormalities including hypokalemia and dehydration. The borderline troponin level in this clinical setting is likely nonspecific finding. Most significant cardiac issues are the previously uncontrolled hypertension, now controlled on Procardia XL. With regards to abnormal EKG, recommend that an old EKG is obtained for comparative purposes. Echocardiogram shows normal left ventricular systolic function, ejection fract ion 50 to 55%, mild to moderate concentric left ventricular per trophy, no significant valvular pathology. Subjective Date of service: 12/15/21 Principal diagnosis: Uncontrolled hypertension Interval history: Patient is planned for vascular angiography and possible intervention scheduled today. No cardiac complaints, no new cardiac events reported. Objective Vital Signs Temp Pulse Resp BP BP Pulse Ox 12/15/21 09:13 97.5 F L 82 18 105/62 97 12/15/21 06:32 107/64 12/15/21 05:00 97.6 F 86 18 107/64 92 12/14/21 23:43 98.3 F 94 H 18 136/66 97 12/14/21 22:34 92 H 12/14/21 22:32 92 H 12/14/21 22:00 99 12/14/21 20:31 98.2 F 92 H 18 130/70 98 12/14/21 15:23 98.0 F 101 H 16 144/71 99 12/14/21 14:36 94 H 129/74 - Physical Examination General: No Apparent Distress, Cachectic HEENT: Positive: PERRL Neck: Positive: neck supple Cardiac: Positive: Reg Rate and Rhythm Lungs: Positive: Decreased Breath Sounds Neuro: Positive: Weakness (Generalized lethargy) Abdomen: Positive: Soft Skin: Positive: Clear Extremities: Absent: edema
[2021-12-15] MEDS: CILOSTAZOL 100 MG TAB PO SCH ×2 (13:00→22:58)
[2021-12-16] MEDS: traMADol 50 MG TAB PO PRN (06:09)
[2021-12-16] MEDS: hydrALAZINE 25 MG TAB PO SCH ×3 (06:10→22:02)
[2021-12-16] MEDS: HEPARIN 5,000 UNIT/1 ML VIAL SUB-Q SCH ×3 (06:13→22:04)
[2021-12-16] MEDS: CILOSTAZOL 100 MG TAB PO SCH ×2 (09:58→22:03)
[2021-12-16] MEDS: METOPROLOL TARTRATE 25 MG TAB PO SCH ×2 (09:58→22:03)
[2021-12-16] MEDS: NIFEdipine XL 30 MG TAB PO SCH ×2 (09:58→22:03)
[2021-12-16] MEDS: CEFEPIME/NS 1 GM/100 ML 1 GM/100 ML BAG IV SCH (10:04)
[2021-12-16] MEDS: CLOPIDOGREL 75 MG TAB PO SCH (10:04)
[2021-12-16] MEDS: PANTOPRAZOLE 40 MG TAB PO SCH (10:08)
[2021-12-16] MEDS: INSULIN LISPRO 100 UNIT/ML SUB-Q SCH ×4 (10:51→22:02)
--- NOTE | 2021-12-16 11:14 | Progress Note ---
Assessment and Plan Assessment and plan: 71-year-old female with history of hypertension, poor appetite and uncontrolled diabetes mellitus type 2 was brought to the hospital because of left foot pain. Patient with left foot ischemia and extensive occlusive disease of the left lower extremity. The patient was admitted with diagnosis below -- Left foot infection/gangrene toes Will DC Vanco Zosyn and start cefepime 1 g daily[confirmed the dose with pharmacy] Follow cultures, supportive care, elevate the limb -- Peripheral vascular disease/critical limb ischemia left Surgery following, check lower extremity arterial Doppler, venous Doppler Consult vascular team after Doppler studies --Elevated troponin Aspirin 81 mg p.o. daily. Lipitor 40 mg p.o. daily. Serial cardiac enzymes. Echo 50 to 55%. Borderline pulmonary hypertension Cardiology following --Acute kidney injury; due to vasomotor nephropathy/POA Gentle hydration, closely monitor renal function Avoid nephrotoxins, renal dosing of medications Renal consult if needed --Hypokalemia; Replenished with KCl, Follow electrolytes 40 mEq KCl x1, follow electrolytes --Hypomagnesemia Magnesium 1.3, 4 g IV, Follow electrolytes -- Hyperglycemia 1800 kcal ADA diet. Accu-Chek before meals and at bedtime with Humalog moderate dose coverage. Diabetic education --Hypertension/well-controlled today Hydralazine 10 mg IV every 6 hours as needed. We continue the home medication. We will monitor the blood pressure closely. Cardiology evaluation Hospital course: 12/13/2021; follow vascular studies, magnesium and potassium replaced, follow electrolytes We will consult vascular tomorrow after arterial and venous Doppler studies are completed 12/14/21; vascular evaluation noted and appreciated, revascularization tomorrow 12/15/2021. Vascular ultrasound demonstrates left SVA occlusive disease. The patient has palpable right pedal pulses and nonpalpable left pedal pulses. Patient also with gangrene of the left fifth digit. Vascular surgery to perform revascularization today. Continue tight glycemic control to promote wound healing. Replete electrolytes as needed. Follow-up BMP for acute kidney injury secondary to vasomotor nephropathy 12/16/2021. Patient with successful angioplasty, atherectomy and stenting of the left distal superficial femoral artery on 12/15/2021. Echocardiogram reveals left ventricular systolic function normal with EF of 50-55%, mild concentric left ventricular hypertrophy with no significant valvular pathology. Await PT/O T evaluation for disposition History Interval history: No new issues overnight Hospitalist Physical - Constitutional Vitals: Temp Pulse Resp BP Pulse Ox 98.2 F 82 18 129/93 97 12/16/21 08:50 12/16/21 08:50 12/16/21 10:00 12/16/21 08:50 12/16/21 10:00 General appearance: Present: no acute distress, cachectic, other (Patient is frail, lethargic) - EENT Eyes: Present: PERRL, EOM intact ENT: hearing intact, clear oral mucosa, dentition normal - Neck Neck: Present: supple, normal ROM - Respiratory Respiratory effort: normal Respiratory: bilateral: CTA - Cardiovascular Rhythm: regular Heart Sounds: Present: S1 & S2. Absent: gallop, rub - Extremities Extremities: no ischemia, No edema, Full ROM - Abdominal General gastrointestinal: soft, non-tender, non-distended, normal bowel sounds - Integumentary Integumentary: Present: clear, warm, dry - Neurologic Neurologic: CNII-XII intact, moves all extremities HEART Score - HEART Score Troponin: Troponin T 0.060 ng/mL (0.00-0.029) H 12/11/21 07:31 Results - Labs CBC & Chem 7: 12/14/21 05:21 12/14/21 05:21 Labs: Laboratory Last Values WBC 9.6 K/mm3 (4.5-11.0) 12/14/21 05:21 RBC 3.47 M/mm3 (3.65-5.03) L 12/14/21 05:21 Hgb 11.3 gm/dl (10.1-14.3) 12/14/21 05:21 Hct 34.3 % (30.3-42.9) 12/14/21 05:21 MCV 99 fl (79-97) H 12/14/21 05:21 MCH 33 pg (28-32) H 12/14/21 05:21 MCHC 33 % (30-34) 12/14/21 05:21 RDW 13.4 % (13.2-15.2) 12/14/21 05:21 Plt Count 300 K/mm3 (140-440) 12/14/21 05:21 Lymph % (Auto) 12.8 % (13.4-35.0) L 12/14/21 05:21 [place] % (Auto) 7.2 % (0.0-7.3) 12/14/21 05:21 Eos % (Auto) 1.5 % (0.0-4.3) 12/14/21 05:21 Baso % (Auto) 0.4 % (0.0-1.8) 12/14/21 05:21 Lymph # (Auto) 1.2 K/mm3 (1.2-5.4) 12/14/21 05:21 [place] # (Auto) 0.7 K/mm3 (0.0-0.8) 12/14/21 05:21 Eos # (Auto) 0.1 K/mm3 (0.0-0.4) 12/14/21 05:21 Baso # (Auto) 0.0 K/mm3 (0.0-0.1) 12/14/21 05:21 Add Manual Diff Complete 12/11/21 07:31 Total Counted 100 12/11/21 07:31 Seg Neutrophils % 78.1 % (40.0-70.0) H 12/14/21 05:21 Seg Neuts % (Manual) 83.0 % (40.0-70.0) H 12/11/21 07:31 Band Neutrophils % 0 % 12/11/21 07:31 Lymphocytes % (Manual) 12.0 % (13.4-35.0) L 12/11/21 07:31 Reactive Lymphs % (Man) 0 % 12/11/21 07:31 Monocytes % (Manual) 2.0 % (0.0-7.3) 12/11/21 07:31 Eosinophils % (Manual) 1.0 % (0.0-4.3) 12/11/21 07:31 Basophils % (Manual) 2.0 % (0.0-1.8) H 12/11/21 07:31 Metamyelocytes % 0 % 12/11/21 07:31 Myelocytes % 0 % 12/11/21 07:31 Promyelocytes % 0 % 12/11/21 07:31 Blast Cells % 0 % 12/11/21 07:31 Nucleated RBC % Not Reportable 12/11/21 07:31 Seg Neutrophils # 7.5 K/mm3 (1.8-7.7) 12/14/21 05:21 Seg Neutrophils # Man 12.5 K/mm3 (1.8-7.7) H 12/11/21 07:31 Band Neutrophils # 0.0 K/mm3 12/11/21 07:31 Lymphocytes # (Manual) 1.8 K/mm3 (1.2-5.4) 12/11/21 07:31 Abs React Lymphs (Man) 0.0 K/mm3 12/11/21 07:31 Monocytes # (Manual) 0.3 K/mm3 (0.0-0.8) 12/11/21 07:31 Eosinophils # (Manual) 0.2 K/mm3 (0.0-0.4) 12/11/21 07:31 Basophils # (Manual) 0.3 K/mm3 (0.0-0.1) H 12/11/21 07:31 Metamyelocytes # 0.0 K/mm3 12/11/21 07:31 Myelocytes # 0.0 K/mm3 12/11/21 07:31 Promyelocytes # 0.0 K/mm3 12/11/21 07:31 Blast Cells # 0.0 K/mm3 12/11/21 07:31 WBC Morphology Not Reportable 12/11/21 07:31 Hypersegmented Neuts Not Reportable 12/11/21 07:31 Hyposegmented Neuts Not Reportable 12/11/21 07:31 Hypogranular Neuts Not Reportable 12/11/21 07:31 Smudge Cells Not Reportable 12/11/21 07:31 Toxic Granulation Not Reportable 12/11/21 07:31 Toxic Vacuolation Not Reportable 12/11/21 07:31 Dohle Bodies Not Reportable 12/11/21 07:31 Pelger-Huet Anomaly Not Reportable 12/11/21 07:31 Ishmael Rods Not Reportable 12/11/21 07:31 Platelet Estimate Consistent w auto 12/11/21 07:31 Clumped Platelets Not Reportable 12/11/21 07:31 Plt Clumps, EDTA Not Reportable 12/11/21 07:31 Large Platelets Not Reportable 12/11/21 07:31 Giant Platelets Not Reportable 12/11/21 07:31 Platelet Satelliting Not Reportable 12/11/21 07:31 Plt Morphology Comment Not Reportable 12/11/21 07:31 RBC Morphology Not Reportable 12/11/21 07:31 Dimorphic RBCs Not Reportable 12/11/21 07:31 Polychromasia Not Reportable 12/11/21 07:31 Hypochromasia Not Reportable 12/11/21 07:31 Poikilocytosis Not Reportable 12/11/21 07:31 Anisocytosis Not Reportable 12/11/21 07:31 Microcytosis Not Reportable 12/11/21 07:31 Macrocytosis Not Reportable 12/11/21 07:31 Spherocytes Not Reportable 12/11/21 07:31 Pappenheimer Bodies Not Reportable 12/11/21 07:31 Sickle Cells Not Reportable 12/11/21 07:31 Target Cells Not Reportable 12/11/21 07:31 Tear Drop Cells Not Reportable 12/11/21 07:31 Ovalocytes Not Reportable 12/11/21 07:31 Helmet Cells Not Reportable 12/11/21 07:31 [place] Bodies Not Reportable 12/11/21 07:31 [place] Rings Not Reportable 12/11/21 07:31 Ramin Cells Not Reportable 12/11/21 07:31 Bite Cells Not Reportable 12/11/21 07:31 Crenated Cell Not Reportable 12/11/21 07:31 Elliptocytes Not Reportable 12/11/21 07:31 Acanthocytes (Spur) Not Reportable 12/11/21 07:31 Rouleaux Not Reportable 12/11/21 07:31 Hemoglobin C Crystals Not Reportable 12/11/21 07:31 Schistocytes Not Reportable 12/11/21 07:31 Malaria parasites Not Reportable 12/11/21 07:31 ESR 12 mm/Hr (0-20) 12/10/21 18:37 Thad Bodies Not Reportable 12/11/21 07:31 Hem Pathologist Commnt No 12/11/21 07:31 PT 11.7 Sec. (12.2-14.9) L 12/10/21 20:37 INR 0.76 (0.87-1.13) L 12/10/21 20:37 APTT 25.8 Sec. (24.2-36.6) 12/10/21 20:37 VBG pH 7.516 (7.320-7.420) H 12/10/21 18:37 Sodium 138 mmol/L (137-145) 12/14/21 05:21 Potassium 3.9 mmol/L (3.6-5.0) 12/14/21 05:21 Chloride 101.7 mmol/L (98-107) 12/14/21 05:21 Carbon Dioxide 26 mmol/L (22-30) 12/14/21 05:21 Anion Gap 14 mmol/L 12/14/21 05:21 BUN 20 mg/dL (7-17) H 12/14/21 05:21 Creatinine 0.9 mg/dL (0.6-1.2) 12/14/21 05:21 Estimated GFR > 60 ml/min 12/14/21 05:21 BUN/Creatinine Ratio 22 % 12/14/21 05:21 Glucose 82 mg/dL (65-100) 12/14/21 05:21 POC Glucose 91 mg/dL (70-105) 12/15/21 20:43 Lactic Acid 1.70 mmol/L (0.7-2.0) 12/10/21 18:37 Calcium 7.8 mg/dL (8.4-10.2) L 12/14/21 05:21 Magnesium 2.30 mg/dL (1.7-2.3) 12/14/21 05:21 Total Bilirubin 0.90 mg/dL (0.1-1.2) 12/14/21 05:21 AST 20 units/L (5-40) 12/14/21 05:21 ALT 13 units/L (7-56) 12/14/21 05:21 Alkaline Phosphatase 78 units/L (35-129) 12/14/21 05:21 Troponin T 0.060 ng/mL (0.00-0.029) H 12/11/21 07:31 C-Reactive Protein 1.60 mg/dL (0.00-1.30) H 12/10/21 18:37 Total Protein 4.8 g/dL (6.3-8.2) L D 12/14/21 05:21 Albumin 2.8 g/dL (3.9-5) L 12/14/21 05:21 Albumin/Globulin Ratio 1.4 % 12/14/21 05:21 Triglycerides 183 mg/dL (2-149) H 12/10/21 18:37 Cholesterol 199 mg/dL (50-199) 12/10/21 18:37 LDL Cholesterol Direct 100 mg/dL (50-130) 12/10/21 18:37 HDL Cholesterol 51 mg/dL (40-59) 12/10/21 18:37 Cholesterol/HDL Ratio 3.90 % 12/10/21 18:37 Microbiology: Microbiology 12/10/21 20:05 Peripheral/Venous Blood Culture - Final NO GROWTH AFTER 5 DAYS 12/10/21 20:05 Peripheral/Venous Blood Culture - Final NO GROWTH AFTER 5 DAYS [place]/IV: Voiding Method Bedside Commode Active Medications - Current Medications Current Medications: Generic Name Dose Route Start Last Admin Trade Name Freq PRN Reason Stop Dose Admin Acetaminophen 650 mg 12/10/21 23:07 12/12/21 11:15 Acetaminophen 325 Mg Tab PO 650 mg Q6H PRN Administration Pain, Mild (1-3) Atorvastatin Calcium 40 mg 12/11/21 22:00 12/15/21 22:57 Atorvastatin 40 Mg Tab PO 40 mg QHS SLOEDAD Administration Cilostazol 100 mg 12/15/21 13:00 12/16/21 09:58 Cilostazol 100 Mg Tab PO 100 mg BID SOLEDAD Administration Clopidogrel Bisulfate 75 mg 12/16/21 10:00 12/16/21 10:04 Clopidogrel 75 Mg Tab PO 75 mg QDAY SOLEDAD Administration Dextrose 50 ml 12/10/21 23:07 Dextrose 50% In Water (25gm) 50 Ml Syringe IV Q30MIN PRN Hypoglycemia Protocol Heparin Sodium (Porcine) 5,000 unit 12/11/21 06:00 12/16/21 06:13 Heparin 5,000 Unit/1 Ml Vial SUB-Q 5,000 unit Q8HR SOLEDAD Administration Hydralazine HCl 25 mg 12/11/21 14:00 12/16/21 06:10 Hydralazine 25 Mg Tab PO 25 mg Q8HR SOLEDAD Administration Hydralazine HCl 10 mg 12/11/21 09:30 Hydralazine 20 Mg/1 Ml Inj IV Q4H PRN Hypertension Cefepime HCl 1 gm in 100 mls @ 200 mls/hr 12/12/21 10:00 12/16/21 10:04 Cefepime/Ns 1 Gm/100 Ml IV 200 mls/hr DAILY SOLEDAD Administration Protocol Insulin Human Lispro 0 unit 12/11/21 07:30 12/16/21 10:51 Insulin Lispro 100 Unit/Ml SUB-Q Not Given [facility] Protocol Metoprolol Tartrate 12.5 mg 12/11/21 10:00 12/16/21 09:58 Metoprolol Tartrate 25 Mg Tab PO 12.5 mg BID SOLEDAD Administration Morphine Sulfate 2 mg 12/10/21 22:08 Morphine 2 Mg/1 Ml Inj IV Q4H PRN Pain, Moderate (4-6) Morphine Sulfate 2 mg 12/10/21 23:07 Morphine 4 Mg/1 Ml Inj IV Q5MIN PRN Chest Pain unrelieved by NTG Nifedipine 30 mg 12/11/21 15:00 12/16/21 09:58 Nifedipine Xl 30 Mg Tab PO 30 mg Q12HR SOLEDAD Administration Nitroglycerin 0.4 mg 12/10/21 23:07 Nitroglycerin 0.4 Mg Tab Subl SL Q5M PRN Chest Pain Ondansetron HCl 4 mg 12/10/21 22:08 Ondansetron 4 Mg/2 Ml Inj IV Q8H PRN Nausea And Vomiting Pantoprazole Sodium 40 mg 12/11/21 10:00 12/16/21 10:08 Pantoprazole 40 Mg Tab PO 40 mg QDAY SOLEDAD Administration Sodium Chloride 10 ml 12/11/21 10:00 12/16/21 10:11 Sodium Chloride 0.9% 10 Ml Flush Syringe IV 10 ml BID SOLEDAD Administration Sodium Chloride 10 ml 12/10/21 23:07 Sodium Chloride 0.9% 10 Ml Flush Syringe IV PRN PRN LINE FLUSH Tramadol HCl 50 mg 12/10/21 23:07 12/16/21 06:09 Tramadol 50 Mg Tab PO 50 mg Q6H PRN Administration Pain, Moderate (4-6) Nutrition/Malnutrition Assess - Dietary Evaluation Nutrition/Malnutrition Findings: Nutrition Notes Start: 12/11/21 15:13 Freq: Status: Active Protocol: Document 12/14/21 10:53 CM (Rec: 12/14/21 10:57 CM [id number]) Co-Sign 12/14/21 10:53 WW Nutrition Notes Initial or Follow up Reassessment Current Diagnosis Acute Kidney Injury, Hypertension Other Pertinent Diagnosis L Foot infection/gangrene Current Diet Mechanical Soft Labs/Tests Reviewed Pertinent Medications 12/14: Atorvastatin Height 5 ft 4 in Weight 40 kg [place] Body Weight (kg) 54.54 BMI 15.1 Intake Prior to Admission Poor Weight change and time frame Daughter reported steady decrease of weight over the past year. 98lb UBW as of 1 week ago per pt - pt's daughter disagrees that it has been much longer than 1 week. Daughter reported ~30lb wt loss over the past 3-4 months. Weight Status Emaciated Subjective/Other Information RD follow-up per protocol. Pt reported early satiety and no appetite with minimal intake over past 2 weeks - mainly consumes alcohol and minimal intake has been ongoing per daughter. Daughter reported that pt refuses to eat and has lost significant weight over the past year with unsure etiology . Pt prescribed appetite stimulates at home - recommend continuing during LOS. Ensure x3 visible unopened on table at time of visit - breakfast tray untouched. Nutrition-focused physical examination performed revealing significant muscle wasting/subcutaneous fat loss - indicative of severe malnutrition. Recommend adding Thiamine and Folic Acid to medication regimen. Percent of energy/protein needs met: Mechanical Soft Diet provides 2048cal/97g PRO q day (128%/ 161%) Burn Absent Trauma Absent GI Symptoms Other Food Allergy No Skin Integrity/Comment Pressure ulcers on sacrum Current % PO Negligible Minimum of two criteria Yes Energy Intake (severe) < or equal to 50% Estimated Energy Requirement > or equal to 5 days Body Fat Depletion Moderate depletion (severe) Muscle Mass Moderate Depletion (severe) Reduced Optical Coating Technician Strength Measurably Reduced (severe) #1 Nutrition Diagnosis Malnutrition As Evidenced by Signs and Symptoms Extended poor PO intake, muscle wasting (uatsdin, acromion, clavicle, calves, anterior thigh, patellar) / subcutaneous fat loss (triceps , orbitals), BMI 15.1kg/m2 Diagnosis Progress(for reassessment Continues documentation) Is patient on ventilator? No Is Patient Ambulatory and/or Out of Bed No REE-([facility]-confined to bed) 1092.240 Kcal/Kg value to use for calculation 40 Approximate Energy Requirements Using 1600 kcal/Kg Calculation Used for Recommendations Kcal/kg Additional Notes Protein: 1.2-1.5g/kg ABW; 48- 60g PRO q day. Fluids: 30mL/kcal or per MD Nutrition Intervention Change Diet Order: Continue current diet; provide assistance/encouragement during meal times. Add Supplement/Snack (indicate name/kcal Ensure Enlive TID /protein ) Provides kCal: 1,050 Provides Protein (gm) 60 Goal #1 Pt to consume >75% of estimated energy/protein needs through current diet order / supplementation Goal #2 Pt to maintain current wt status within 2.5% during LOS Anticipated Discharge Needs: Continue nutritional supplements 2-3 times per day Follow-Up By: 12/17/21 Additional Comments Monitor %PO intake, GI symptoms, and wt status.
--- NOTE | 2021-12-16 13:55 | Progress Note ---
Assessment and Plan 71-year-old female with history of hypertension, poor appetite and elevated blood sugar was brought to the hospital because of left foot pain. Family states the patient fell a few days ago and has not been her normal self since. Patient states she felt several weeks ago and hurt her right foot. Patient gives her pain a score of 5/10. Patient with left foot ischemia and extensive occlusive disease of the left lower extremity. Pt foot much warmer with revasc procedure. Nursing reports distal ppulses now as well. cont observation on the toes. Subjective Date of service: 12/16/21 Patient Reports: Positive: feels better, still having pain Narrative: Pt foot much warmer with revasc procedure. Nursing reports distal ppulses now as well. cont observation on the toes. Objective Vital Signs - 12hr 12/16/21 12/16/21 12/16/21 03:51 08:04 08:50 Temperature 98.1 F 98.0 F 98.2 F Pulse Rate 90 82 Respiratory 18 19 16 Rate Blood Pressure 145/73 129/59 Blood Pressure 129/93 [Left] O2 Sat by Pulse 96 100 Oximetry 12/16/21 12/16/21 10:00 12:22 Temperature 98.0 F Pulse Rate 87 Respiratory 18 19 Rate Blood Pressure 148/72 Blood Pressure [Left] O2 Sat by Pulse 97 99 Oximetry - Labs 12/14/21 05:21 12/14/21 05:21
--- NOTE | 2021-12-16 15:05 | Progress Note ---
Assessment and Plan - Patient Problems (1) Uncontrolled hypertension Current Visit: Yes Status: Acute Plan to address problem: 71-year-old woman who presented with severe uncontrolled hypertension, poor oral intake, with multiple metabolic abnormalities including hypokalemia and dehydration. Status post lower extremity vascular angiography and intervention for ischemic foot. No cardiac complaints. Most significant cardiac issues are the previously uncontrolled hypertension, now better controlled on Procardia XL. Echocardiogram showed normal left ventricular systolic function, ejection fraction 50 to 55%, mild to moderate concentric left ventricular per trophy, no significant valvular pathology. Subjective Date of service: 12/16/21 Principal diagnosis: Uncontrolled hypertension Interval history: Patient is comfortable, status post percutaneous vascular revascularization procedure. No new cardiac complaints. No new cardiac events reported. Blood pressure control is optimal on current medication regimen. Objective Vital Signs Temp Pulse Resp BP BP Pulse Ox 12/16/21 14:43 88 143/71 12/16/21 12:22 98.0 F 87 19 148/72 99 12/16/21 10:00 18 97 12/16/21 08:50 98.2 F 82 16 129/93 100 12/16/21 08:04 98.0 F 19 129/59 12/16/21 03:51 98.1 F 90 18 145/73 96 12/15/21 23:34 98.0 F 105 H 18 171/81 99 12/15/21 22:56 150/83 12/15/21 22:00 100 12/15/21 19:19 98.3 F 95 H 18 150/83 97 - Physical Examination General: No Apparent Distress, Cachectic HEENT: Positive: PERRL Neck: Positive: neck supple Cardiac: Positive: Reg Rate and Rhythm Lungs: Positive: Decreased Breath Sounds Neuro: Positive: Weakness (Generalized lethargy) Abdomen: Positive: Soft Skin: Positive: Clear Extremities: Absent: edema
--- NOTE | 2021-12-16 20:23 | Progress Note ---
Assessment and Plan The patient is a 71-year-old female s/p left lower extremity revascularization. Her pain has resolved and she was able to stand and take multiple steps. Her toes are stable at this time. I had a long discussion with the patient, her sis ter who was present, and her 2 daughters by phone. I explained that the patient has significantly improved arterial flow. It would be best to allow her toes to either declare themselves or heal, as long as she remains pain-free and without infection. She will be on triple therapy with Plavix 75 mg daily, Cilostazol 100 mg BID, and Xarelto 2.5 mg BID. She will follow up after discharge, with Dr Chantal Childers in 2 weeks in the office and be followed regularly to monitor her toes. They expressed understanding and agree with the plan. Subjective Date of service: 12/16/21 Principal diagnosis: Uncontrolled hypertension Interval history: The patient states she was able to stand and take several steps with therapy. She states she had pain on the plantar surface of her left foot however she denies any pain otherwise. She has no additional complaints at this time. Objective - Constitutional Vitals: Vital Signs - 12hr 12/16/21 12/16/21 12/16/21 08:50 10:00 12:22 Temperature 98.2 F 98.0 F Pulse Rate 82 87 Respiratory 16 18 19 Rate Blood Pressure 148/72 Blood Pressure 129/93 [Left] O2 Sat by Pulse 100 97 99 Oximetry 12/16/21 12/16/21 14:43 16:12 Temperature 98.7 F Pulse Rate 88 110 H Respiratory 18 Rate Blood Pressure 143/71 138/62 Blood Pressure [Left] O2 Sat by Pulse 98 Oximetry General appearance: Present: no acute distress - Respiratory Respiratory effort: normal - Cardiovascular Rhythm: regular Extremities: abnormal (right groin without hematoma) Extremity abnormal: other (left foot warm, tender toes, all toes with discoloration, no evidence of purulence) - Labs CBC & Chem 7: 12/14/21 05:21 12/14/21 05:21 Medications & Allergies - Medications Allergies/Adverse Reactions: Allergies No Known Allergies Allergy (Verified 12/10/21 16:19) Home Medications: Home Medications Medication Instructions Recorded Confirmed Last Taken Type Amlodipine Besylate 5 PO DAILY 12/11/21 12/11/21 Unknown History DULoxetine [Cymbalta] 30 mg PO BID 12/11/21 12/11/21 Unknown History Doxycycline Monohydrate 100 mg PO BID 12/11/21 12/11/21 Unknown History [Doxycycline Monohydrate CAP] Gabapentin 100 mg PO BID 12/11/21 12/11/21 Unknown History Megestrol Acetate 40 mg PO DAILY 12/11/21 12/11/21 Unknown History QUEtiapine [SEROquel] 12.5 mg PO HS 12/11/21 12/11/21 Unknown History Vitamin D3 50,000UNIT CAP 50,000 units PO 1XW 12/11/21 12/11/21 Unknown History Active Medications: Generic Name Dose Route Start Last Admin Trade Name Freq PRN Reason Stop Dose Admin Acetaminophen 650 mg 12/10/21 23:07 12/12/21 11:15 Acetaminophen 325 Mg Tab PO 650 mg Q6H PRN Administration Pain, Mild (1-3) Atorvastatin Calcium 40 mg 12/11/21 22:00 12/15/21 22:57 Atorvastatin 40 Mg Tab PO 40 mg QHS SOLEDAD Administration Cilostazol 100 mg 12/15/21 13:00 12/16/21 09:58 Cilostazol 100 Mg Tab PO 100 mg BID SOLEDAD Administration Clopidogrel Bisulfate 75 mg 12/16/21 10:00 12/16/21 10:04 Clopidogrel 75 Mg Tab PO 75 mg QDAY SOLEDAD Administration Dextrose 50 ml 12/10/21 23:07 Dextrose 50% In Water (25gm) 50 Ml Syringe IV Q30MIN PRN Hypoglycemia Protocol Heparin Sodium (Porcine) 5,000 unit 12/11/21 06:00 12/16/21 14:43 Heparin 5,000 Unit/1 Ml Vial SUB-Q 5,000 unit Q8HR SOLEDAD Administration Hydralazine HCl 25 mg 12/11/21 14:00 12/16/21 14:43 Hydralazine 25 Mg Tab PO 25 mg Q8HR SOLEDAD Administration Hydralazine HCl 10 mg 12/11/21 09:30 Hydralazine 20 Mg/1 Ml Inj IV Q4H PRN Hypertension Cefepime HCl 1 gm in 100 mls @ 200 mls/hr 12/12/21 10:00 12/16/21 10:04 Cefepime/Ns 1 Gm/100 Ml IV 200 mls/hr DAILY SOLEDAD Administration Protocol Insulin Human Lispro 0 unit 12/11/21 07:30 12/16/21 18:15 Insulin Lispro 100 Unit/Ml SUB-Q Not Given ACHS [facility] Protocol Metoprolol Tartrate 12.5 mg 12/11/21 10:00 12/16/21 09:58 Metoprolol Tartrate 25 Mg Tab PO 12.5 mg BID SOLEDAD Administration Morphine Sulfate 2 mg 12/10/21 22:08 Morphine 2 Mg/1 Ml Inj IV Q4H PRN Pain, Moderate (4-6) Morphine Sulfate 2 mg 12/10/21 23:07 Morphine 4 Mg/1 Ml Inj IV Q5MIN PRN Chest Pain unrelieved by NTG Nifedipine 30 mg 12/11/21 15:00 12/16/21 09:58 Nifedipine Xl 30 Mg Tab PO 30 mg Q12HR SOLEDAD Administration Nitroglycerin 0.4 mg 12/10/21 23:07 Nitroglycerin 0.4 Mg Tab Subl SL Q5M PRN Chest Pain Ondansetron HCl 4 mg 12/10/21 22:08 12/16/21 13:49 Ondansetron 4 Mg/2 Ml Inj IV 4 mg Q8H PRN Administration Nausea And Vomiting Pantoprazole Sodium 40 mg 12/11/21 10:00 12/16/21 10:08 Pantoprazole 40 Mg Tab PO 40 mg QDAY SOLEDAD Administration Sodium Chloride 10 ml 12/11/21 10:00 12/16/21 10:11 Sodium Chloride 0.9% 10 Ml Flush Syringe IV 10 ml BID SOLEDAD Administration Sodium Chloride 10 ml 12/10/21 23:07 Sodium Chloride 0.9% 10 Ml Flush Syringe IV PRN PRN LINE FLUSH Tramadol HCl 50 mg 12/10/21 23:07 12/16/21 06:09 Tramadol 50 Mg Tab PO 50 mg Q6H PRN Administration Pain, Moderate (4-6) HEART Score - HEART Score Troponin: Troponin T 0.060 ng/mL (0.00-0.029) H 12/11/21 07:31
[2021-12-17 05:01] VITALS: BP 131/81
[2021-12-17] MEDS: hydrALAZINE 25 MG TAB PO SCH (06:11)
[2021-12-17] MEDS: HEPARIN 5,000 UNIT/1 ML VIAL SUB-Q SCH (06:11)
[2021-12-17] MEDS: traMADol 50 MG TAB PO PRN (06:13)
--- NOTE | 2021-12-17 08:51 | Progress Note ---
Assessment and Plan Assessment and plan: 71-year-old female with history of hypertension, poor appetite and uncontrolled diabetes mellitus type 2 was brought to the hospital because of left foot pain. Patient with left foot ischemia and extensive occlusive disease of the left lower extremity. The patient was admitted with diagnosis below -- Left foot infection/gangrene toes Will DC Vanco Zosyn and start cefepime 1 g daily[confirmed the dose with pharmacy] Follow cultures, supportive care, elevate the limb -- Peripheral vascular disease/critical limb ischemia left Surgery following, check lower extremity arterial Doppler, venous Doppler Consult vascular team after Doppler studies --Elevated troponin Aspirin 81 mg p.o. daily. Lipitor 40 mg p.o. daily. Serial cardiac enzymes. Echo 50 to 55%. Borderline pulmonary hypertension Cardiology following --Acute kidney injury; due to vasomotor nephropathy/POA Gentle hydration, closely monitor renal function Avoid nephrotoxins, renal dosing of medications Renal consult if needed --Hypokalemia; Replenished with KCl, Follow electrolytes 40 mEq KCl x1, follow electrolytes --Hypomagnesemia Magnesium 1.3, 4 g IV, Follow electrolytes -- Hyperglycemia 1800 kcal ADA diet. Accu-Chek before meals and at bedtime with Humalog moderate dose coverage. Diabetic education --Hypertension/well-controlled today Hydralazine 10 mg IV every 6 hours as needed. We continue the home medication. We will monitor the blood pressure closely. Cardiology evaluation Hospital course: 12/13/2021; follow vascular studies, magnesium and potassium replaced, follow electrolytes We will consult vascular tomorrow after arterial and venous Doppler studies are completed 12/14/21; vascular evaluation noted and appreciated, revascularization tomorrow 12/15/2021. Vascular ultrasound demonstrates left SVA occlusive disease. The patient has palpable right pedal pulses and nonpalpable left pedal pulses. Patient also with gangrene of the left fifth digit. Vascular surgery to perform revascularization today. Continue tight glycemic control to promote wound healing. Replete electrolytes as needed. Follow-up BMP for acute kidney injury secondary to vasomotor nephropathy 12/16/2021. Patient with successful angioplasty, atherectomy and stenting of the left distal superficial femoral artery on 12/15/2021. Echocardiogram reveals left ventricular systolic function normal with EF of 50-55%, mild concentric left ventricular hypertrophy with no significant valvular pathology. Await PT/O T evaluation for disposition History Interval history: No new issues overnight Hospitalist Physical - Constitutional Vitals: Temp Pulse Resp BP Pulse Ox 98.8 F 109 H 18 131/81 98 12/17/21 03:20 12/17/21 06:11 12/17/21 03:20 12/17/21 06:11 12/17/21 03:20 General appearance: Present: no acute distress - EENT Eyes: Present: PERRL, EOM intact ENT: hearing intact, clear oral mucosa, dentition normal - Neck Neck: Present: supple, normal ROM - Respiratory Respiratory effort: normal Respiratory: bilateral: CTA - Cardiovascular Rhythm: regular Heart Sounds: Present: S1 & S2. Absent: gallop, rub - Extremities Extremities: no ischemia, No edema, Full ROM - Abdominal General gastrointestinal: soft, non-tender, non-distended, normal bowel sounds - Integumentary Integumentary: Present: clear, warm, dry - Neurologic Neurologic: CNII-XII intact, moves all extremities HEART Score - HEART Score Troponin: Troponin T 0.060 ng/mL (0.00-0.029) H 12/11/21 07:31 Results - Labs CBC & Chem 7: 12/14/21 05:21 12/14/21 05:21 Labs: Laboratory Last Values WBC 9.6 K/mm3 (4.5-11.0) 12/14/21 05:21 RBC 3.47 M/mm3 (3.65-5.03) L 12/14/21 05:21 Hgb 11.3 gm/dl (10.1-14.3) 12/14/21 05:21 Hct 34.3 % (30.3-42.9) 12/14/21 05:21 MCV 99 fl (79-97) H 12/14/21 05:21 MCH 33 pg (28-32) H 12/14/21 05:21 MCHC 33 % (30-34) 12/14/21 05:21 RDW 13.4 % (13.2-15.2) 12/14/21 05:21 Plt Count 300 K/mm3 (140-440) 12/14/21 05:21 Lymph % (Auto) 12.8 % (13.4-35.0) L 12/14/21 05:21 [place] % (Auto) 7.2 % (0.0-7.3) 12/14/21 05:21 Eos % (Auto) 1.5 % (0.0-4.3) 12/14/21 05:21 Baso % (Auto) 0.4 % (0.0-1.8) 12/14/21 05:21 Lymph # (Auto) 1.2 K/mm3 (1.2-5.4) 12/14/21 05:21 [place] # (Auto) 0.7 K/mm3 (0.0-0.8) 12/14/21 05:21 Eos # (Auto) 0.1 K/mm3 (0.0-0.4) 12/14/21 05:21 Baso # (Auto) 0.0 K/mm3 (0.0-0.1) 12/14/21 05:21 Add Manual Diff Complete 12/11/21 07:31 Total Counted 100 12/11/21 07:31 Seg Neutrophils % 78.1 % (40.0-70.0) H 12/14/21 05:21 Seg Neuts % (Manual) 83.0 % (40.0-70.0) H 12/11/21 07:31 Band Neutrophils % 0 % 12/11/21 07:31 Lymphocytes % (Manual) 12.0 % (13.4-35.0) L 12/11/21 07:31 Reactive Lymphs % (Man) 0 % 12/11/21 07:31 Monocytes % (Manual) 2.0 % (0.0-7.3) 12/11/21 07:31 Eosinophils % (Manual) 1.0 % (0.0-4.3) 12/11/21 07:31 Basophils % (Manual) 2.0 % (0.0-1.8) H 12/11/21 07:31 Metamyelocytes % 0 % 12/11/21 07:31 Myelocytes % 0 % 12/11/21 07:31 Promyelocytes % 0 % 12/11/21 07:31 Blast Cells % 0 % 12/11/21 07:31 Nucleated RBC % Not Reportable 12/11/21 07:31 Seg Neutrophils # 7.5 K/mm3 (1.8-7.7) 12/14/21 05:21 Seg Neutrophils # Man 12.5 K/mm3 (1.8-7.7) H 12/11/21 07:31 Band Neutrophils # 0.0 K/mm3 12/11/21 07:31 Lymphocytes # (Manual) 1.8 K/mm3 (1.2-5.4) 12/11/21 07:31 Abs React Lymphs (Man) 0.0 K/mm3 12/11/21 07:31 Monocytes # (Manual) 0.3 K/mm3 (0.0-0.8) 12/11/21 07:31 Eosinophils # (Manual) 0.2 K/mm3 (0.0-0.4) 12/11/21 07:31 Basophils # (Manual) 0.3 K/mm3 (0.0-0.1) H 12/11/21 07:31 Metamyelocytes # 0.0 K/mm3 12/11/21 07:31 Myelocytes # 0.0 K/mm3 12/11/21 07:31 Promyelocytes # 0.0 K/mm3 12/11/21 07:31 Blast Cells # 0.0 K/mm3 12/11/21 07:31 WBC Morphology Not Reportable 12/11/21 07:31 Hypersegmented Neuts Not Reportable 12/11/21 07:31 Hyposegmented Neuts Not Reportable 12/11/21 07:31 Hypogranular Neuts Not Reportable 12/11/21 07:31 Smudge Cells Not Reportable 12/11/21 07:31 Toxic Granulation Not Reportable 12/11/21 07:31 Toxic Vacuolation Not Reportable 12/11/21 07:31 Dohle Bodies Not Reportable 12/11/21 07:31 Pelger-Huet Anomaly Not Reportable 12/11/21 07:31 Ishmael Rods Not Reportable 12/11/21 07:31 Platelet Estimate Consistent w auto 12/11/21 07:31 Clumped Platelets Not Reportable 12/11/21 07:31 Plt Clumps, EDTA Not Reportable 12/11/21 07:31 Large Platelets Not Reportable 12/11/21 07:31 Giant Platelets Not Reportable 12/11/21 07:31 Platelet Satelliting Not Reportable 12/11/21 07:31 Plt Morphology Comment Not Reportable 12/11/21 07:31 RBC Morphology Not Reportable 12/11/21 07:31 Dimorphic RBCs Not Reportable 12/11/21 07:31 Polychromasia Not Reportable 12/11/21 07:31 Hypochromasia Not Reportable 12/11/21 07:31 Poikilocytosis Not Reportable 12/11/21 07:31 Anisocytosis Not Reportable 12/11/21 07:31 Microcytosis Not Reportable 12/11/21 07:31 Macrocytosis Not Reportable 12/11/21 07:31 Spherocytes Not Reportable 12/11/21 07:31 Pappenheimer Bodies Not Reportable 12/11/21 07:31 Sickle Cells Not Reportable 12/11/21 07:31 Target Cells Not Reportable 12/11/21 07:31 Tear Drop Cells Not Reportable 12/11/21 07:31 Ovalocytes Not Reportable 12/11/21 07:31 Helmet Cells Not Reportable 12/11/21 07:31 [place] Bodies Not Reportable 12/11/21 07:31 [place] Rings Not Reportable 12/11/21 07:31 [place] Cells Not Reportable 12/11/21 07:31 Bite Cells Not Reportable 12/11/21 07:31 Crenated Cell Not Reportable 12/11/21 07:31 Elliptocytes Not Reportable 12/11/21 07:31 Acanthocytes (Spur) Not Reportable 12/11/21 07:31 Rouleaux Not Reportable 12/11/21 07:31 Hemoglobin C Crystals Not Reportable 12/11/21 07:31 Schistocytes Not Reportable 12/11/21 07:31 Malaria parasites Not Reportable 12/11/21 07:31 ESR 12 mm/Hr (0-20) 12/10/21 18:37 Thad Bodies Not Reportable 12/11/21 07:31 Hem Pathologist Commnt No 12/11/21 07:31 PT 11.7 Sec. (12.2-14.9) L 12/10/21 20:37 INR 0.76 (0.87-1.13) L 12/10/21 20:37 APTT 25.8 Sec. (24.2-36.6) 12/10/21 20:37 VBG pH 7.516 (7.320-7.420) H 12/10/21 18:37 Sodium 138 mmol/L (137-145) 12/14/21 05:21 Potassium 3.9 mmol/L (3.6-5.0) 12/14/21 05:21 Chloride 101.7 mmol/L (98-107) 12/14/21 05:21 Carbon Dioxide 26 mmol/L (22-30) 12/14/21 05:21 Anion Gap 14 mmol/L 12/14/21 05:21 BUN 20 mg/dL (7-17) H 12/14/21 05:21 Creatinine 0.9 mg/dL (0.6-1.2) 12/14/21 05:21 Estimated GFR > 60 ml/min 12/14/21 05:21 BUN/Creatinine Ratio 22 % 12/14/21 05:21 Glucose 82 mg/dL (65-100) 12/14/21 05:21 POC Glucose 99 mg/dL (70-105) 12/16/21 20:29 Lactic Acid 1.70 mmol/L (0.7-2.0) 12/10/21 18:37 Calcium 7.8 mg/dL (8.4-10.2) L 12/14/21 05:21 Magnesium 2.30 mg/dL (1.7-2.3) 12/14/21 05:21 Total Bilirubin 0.90 mg/dL (0.1-1.2) 12/14/21 05:21 AST 20 units/L (5-40) 12/14/21 05:21 ALT 13 units/L (7-56) 12/14/21 05:21 Alkaline Phosphatase 78 units/L (35-129) 12/14/21 05:21 Troponin T 0.060 ng/mL (0.00-0.029) H 12/11/21 07:31 C-Reactive Protein 1.60 mg/dL (0.00-1.30) H 12/10/21 18:37 Total Protein 4.8 g/dL (6.3-8.2) L D 12/14/21 05:21 Albumin 2.8 g/dL (3.9-5) L 12/14/21 05:21 Albumin/Globulin Ratio 1.4 % 12/14/21 05:21 Triglycerides 183 mg/dL (2-149) H 12/10/21 18:37 Cholesterol 199 mg/dL (50-199) 12/10/21 18:37 LDL Cholesterol Direct 100 mg/dL (50-130) 12/10/21 18:37 HDL Cholesterol 51 mg/dL (40-59) 12/10/21 18:37 Cholesterol/HDL Ratio 3.90 % 12/10/21 18:37 Cheung/IV: Voiding Method Bedside Commode Active Medications - Current Medications Current Medications: Generic Name Dose Route Start Last Admin Trade Name Freq PRN Reason Stop Dose Admin Acetaminophen 650 mg 12/10/21 23:07 12/12/21 11:15 Acetaminophen 325 Mg Tab PO 650 mg Q6H PRN Administration Pain, Mild (1-3) Atorvastatin Calcium 40 mg 12/11/21 22:00 12/16/21 22:03 Atorvastatin 40 Mg Tab PO 40 mg QHS SOLEDAD Administration Cilostazol 100 mg 12/15/21 13:00 12/16/21 22:03 Cilostazol 100 Mg Tab PO 100 mg BID SOLEDAD Administration Clopidogrel Bisulfate 75 mg 12/16/21 10:00 12/16/21 10:04 Clopidogrel 75 Mg Tab PO 75 mg QDAY SOLEDAD Administration Dextrose 50 ml 12/10/21 23:07 Dextrose 50% In Water (25gm) 50 Ml Syringe IV Q30MIN PRN Hypoglycemia Protocol Heparin Sodium (Porcine) 5,000 unit 12/11/21 06:00 12/17/21 06:11 Heparin 5,000 Unit/1 Ml Vial SUB-Q 5,000 unit Q8HR SOLEDAD Administration Hydralazine HCl 25 mg 12/11/21 14:00 12/17/21 06:11 Hydralazine 25 Mg Tab PO 25 mg Q8HR SOLEDAD Administration Hydralazine HCl 10 mg 12/11/21 09:30 Hydralazine 20 Mg/1 Ml Inj IV Q4H PRN Hypertension Cefepime HCl 1 gm in 100 mls @ 200 mls/hr 12/12/21 10:00 12/16/21 10:04 Cefepime/Ns 1 Gm/100 Ml IV 200 mls/hr DAILY SOLEDAD Administration Protocol Insulin Human Lispro 0 unit 12/11/21 07:30 12/16/21 22:02 Insulin Lispro 100 Unit/Ml SUB-Q Not Given ACHS SOLEDAD Protocol Metoprolol Tartrate 12.5 mg 12/11/21 10:00 12/16/21 22:03 Metoprolol Tartrate 25 Mg Tab PO 12.5 mg BID SOLEDAD Administration Morphine Sulfate 2 mg 12/10/21 22:08 Morphine 2 Mg/1 Ml Inj IV Q4H PRN Pain, Moderate (4-6) Morphine Sulfate 2 mg 12/10/21 23:07 Morphine 4 Mg/1 Ml Inj IV Q5MIN PRN Chest Pain unrelieved by NTG Nifedipine 30 mg 12/11/21 15:00 12/16/21 22:03 Nifedipine Xl 30 Mg Tab PO 30 mg Q12HR SOLEDAD Administration Nitroglycerin 0.4 mg 12/10/21 23:07 Nitroglycerin 0.4 Mg Tab Subl SL Q5M PRN Chest Pain Ondansetron HCl 4 mg 12/10/21 22:08 12/16/21 13:49 Ondansetron 4 Mg/2 Ml Inj IV 4 mg Q8H PRN Administration Nausea And Vomiting Pantoprazole Sodium 40 mg 12/11/21 10:00 12/16/21 10:08 Pantoprazole 40 Mg Tab PO 40 mg QDAY SOLEDAD Administration Sodium Chloride 10 ml 12/11/21 10:00 12/16/21 22:04 Sodium Chloride 0.9% 10 Ml Flush Syringe IV 10 ml BID SOLEDAD Administration Sodium Chloride 10 ml 12/10/21 23:07 Sodium Chloride 0.9% 10 Ml Flush Syringe IV PRN PRN LINE FLUSH Tramadol HCl 50 mg 12/10/21 23:07 12/17/21 06:13 Tramadol 50 Mg Tab PO 50 mg Q6H PRN Administration Pain, Moderate (4-6) Nutrition/Malnutrition Assess - Dietary Evaluation Nutrition/Malnutrition Findings: Nutrition Notes Start: 12/11/21 15:13 Freq: Status: Active Protocol: Document 12/14/21 10:53 CM (Rec: 12/14/21 10:57 CM [id number]) Co-Sign 12/14/21 10:53 WW Nutrition Notes Initial or Follow up Reassessment Current Diagnosis Acute Kidney Injury, Hypertension Other Pertinent Diagnosis L Foot infection/gangrene Current Diet Mechanical Soft Labs/Tests Reviewed Pertinent Medications 12/14: Atorvastatin Height 5 ft 4 in Weight 40 kg Johnson Body Weight (kg) 54.54 BMI 15.1 Intake Prior to Admission Poor Weight change and time frame Daughter reported steady decrease of weight over the past year. 98lb UBW as of 1 week ago per pt - pt's daughter disagrees that it has been much longer than 1 week. Daughter reported ~30lb wt loss over the past 3-4 months. Weight Status Emaciated Subjective/Other Information RD follow-up per protocol. Pt reported early satiety and no appetite with minimal intake over past 2 weeks - mainly consumes alcohol and minimal intake has been ongoing per daughter. Daughter reported that pt refuses to eat and has lost significant weight over the past year with unsure etiology . Pt prescribed appetite stimulates at home - recommend continuing during LOS. Ensure x3 visible unopened on table at time of visit - breakfast tray untouched. Nutrition-focused physical examination performed revealing significant muscle wasting/subcutaneous fat loss - indicative of severe malnutrition. Recommend adding Thiamine and Folic Acid to medication regimen. Percent of energy/protein needs met: Mechanical Soft Diet provides 8cal/97g PRO q day (128%/ 161%) Burn Absent Trauma Absent GI Symptoms Other Food Allergy No Skin Integrity/Comment Pressure ulcers on sacrum Current % PO Negligible Minimum of two criteria Yes Energy Intake (severe) < or equal to 50% Estimated Energy Requirement > or equal to 5 days Body Fat Depletion Moderate depletion (severe) Muscle Mass Moderate Depletion (severe) Reduced Quiller Hand Strength Measurably Reduced (severe) #1 Nutrition Diagnosis Malnutrition As Evidenced by Signs and Symptoms Extended poor PO intake, muscle wasting (orthodox, acromion, clavicle, calves, anterior thigh, patellar) / subcutaneous fat loss (triceps , orbitals), BMI 15.1kg/m2 Diagnosis Progress(for reassessment Continues documentation) Is patient on ventilator? No Is Patient Ambulatory and/or Out of Bed No REE-([facility]-confined to bed) 1092.240 Kcal/Kg value to use for calculation 40 Approximate Energy Requirements Using 1600 kcal/Kg Calculation Used for Recommendations Kcal/kg Additional Notes Protein: 1.2-1.5g/kg ABW; 48- 60g PRO q day. Fluids: 30mL/kcal or per MD Nutrition Intervention Change Diet Order: Continue current diet; provide assistance/encouragement during meal times. Add Supplement/Snack (indicate name/kcal Ensure Enlive TID /protein ) Provides kCal: 1,050 Provides Protein (gm) 60 Goal #1 Pt to consume >75% of estimated energy/protein needs through current diet order / supplementation Goal #2 Pt to maintain current wt status within 2.5% during LOS Anticipated Discharge Needs: Continue nutritional supplements 2-3 times per day Follow-Up By: 12/17/21 Additional Comments Monitor %PO intake, GI symptoms, and wt status.
--- NOTE | 2021-12-17 08:55 | Discharge Summary ---
Providers - Providers Date of Admission: 12/10/21 22:08 Date of discharge: 12/17/21 Attending physician: ALICJA ORTEGA 12/10/21 Consult to Cardiac Rehabilitation [CONS] Routine Reason For Exam: Phase I 12/10/21 22:38 Consult to Physician [CONS] Urgent Comment: Consulting Provider: ARAMIS ALMARAZ Physician Instructions: Reason For Exam: Left foot infection/necrotic toes 12/10/21 23:07 Consult to Dietitian/Nutrition [CONS] Routine Physician Instructions: Reason For Exam: Reason for Consult: Diet education 12/10/21 23:19 Consult to Physician [CONS] Routine Comment: Consulting Provider: LAXMI COYLE Physician Instructions: Reason For Exam: Elevated troponin 12/11/21 06:32 Consult to Wound/ET Nurse [CONS] Routine Reason For Exam: wound eval 12/14/21 09:16 Physical Therapy Evaluation and Treat [CONS] Routine Comment: PT eval and treat Reason For Exam: debility 12/14/21 09:17 Occupational Therapy Evaluate and Treat [CONS] Routine Comment: OT eval and treat Reason For Exam: debility Primary care physician: JEANA GONZALEZ Hospitalization Reason for admission: gangrene Condition: Fair Hospital course: 71-year-old female with history of hypertension, poor appetite and uncontrolled diabetes mellitus type 2 was brought to the hospital because of left foot pain. Patient with left foot ischemia and extensive occlusive disease of the left lower extremity. The patient was admitted with diagnosis below -- Left foot infection/gangrene toes Will DC Vanco Zosyn and start cefepime 1 g daily[confirmed the dose with pharmacy] Follow cultures, supportive care, elevate the limb -- Peripheral vascular disease/critical limb ischemia left Surgery consulted, check lower extremity arterial Doppler, venous Doppler Vascular surgery consulted --Elevated troponin Aspirin 81 mg p.o. daily. Lipitor 40 mg p.o. daily. Echo 50 to 55%. Borderline pulmonary hypertension Cardiology following --Acute kidney injury; due to vasomotor nephropathy/POA, resolved Resolved after gentle hydration Avoid nephrotoxins, renal dosing of medications Renal consult if needed --Hypokalemia; resolved Replenished with KCl, Follow electrolytes 40 mEq KCl x1, follow electrolytes --Hypomagnesemia, resolved Magnesium 1.3, 4 g IV, Follow electrolytes -- Hyperglycemia 1800 kcal ADA diet. Accu-Chek before meals and at bedtime with Humalog moderate dose coverage. Diabetic education --Hypertension/well-controlled today Better controlled with Procardia Hospital course: 12/13/2021; follow vascular studies, magnesium and potassium replaced, follow electrolytes We will consult vascular tomorrow after arterial and venous Doppler studies are completed 12/14/21; vascular evaluation noted and appreciated, revascularization tomorrow 12/15/2021. Vascular ultrasound demonstrates left SVA occlusive disease. The patient has palpable right pedal pulses and nonpalpable left pedal pulses. Patient also with gangrene of the left fifth digit. Vascular surgery to perform revascularization today. Continue tight glycemic control to promote wound healing. Replete electrolytes as needed. Follow-up BMP for acute kidney injury secondary to vasomotor nephropathy 12/16/2021. Patient with successful angioplasty, atherectomy and stenting of the left distal superficial femoral artery on 12/15/2021. Echocardiogram reveals left ventricular systolic function normal with EF of 50-55%, mild concentric left ventricular hypertrophy with no significant valvular pathology. Await PT/OT evaluation for disposition 12/17/2021. Physical therapy recommends wheelchair, 3 and 1 bedside commode and home health PT. Vascular surgery has cleared the patient for discharge home Disposition: 01 HOME / SELF CARE / HOMELESS Final Discharge Diagnosis (Prints w/discharge instructions): Left foot infection/gangrene toes, peripheral vascular disease, critical limb ischemia, elevated troponin, acute kidney injury secondary to vasomotor nephropathy, hypokalemia, hypomagnesemia, uncontrolled hypertension, s/p revascularization of lower extremity Core Measure Documentation - Palliative Care Palliative Care/ Comfort Measures: Not Applicable - Core Measures Any of the following diagnoses?: none Exam - Constitutional Vitals: Temp Pulse Resp BP Pulse Ox 98.8 F 109 H 18 131/81 98 12/17/21 03:20 12/17/21 06:11 12/17/21 03:20 12/17/21 06:11 12/17/21 03:20 General appearance: Present: no acute distress, well-nourished - EENT Eyes: Present: PERRL ENT: hearing intact, clear oral mucosa - Neck Neck: Present: supple, normal ROM - Respiratory Respiratory effort: normal Respiratory: bilateral: CTA - Cardiovascular Heart Sounds: Present: S1 & S2. Absent: rub, click - Extremities Extremities: pulses symmetrical, No edema Peripheral Pulses: within normal limits - Abdominal General gastrointestinal: Present: soft, non-tender, non-distended, normal bowel sounds Female genitourinary: Present: normal - Integumentary Integumentary: Present: clear, warm, dry - Musculoskeletal Musculoskeletal: gait normal, strength equal bilaterally - Psychiatric Psychiatric: appropriate mood/affect, intact judgment & insight - Neurologic Neurologic: CNII-XII intact, moves all extremities Plan Activity: advance as tolerated Weight Bearing Status: Weight Bear as Tolerated Diet: regular Wound: per your surgeon's advice Special Instructions: physical therapy Durable Medical Equipment Needed Upon Discharge: Walker-Rolling, Bedside Commode Follow up with: JEANA GONZALEZ MD [Primary Care Provider] - 7 Days REENA LOPEZ MD [Staff Physician] - 7 Days Prescriptions: hydrALAZINE [Apresoline TAB] 25 mg PO Q8HR #90 tablet AtorvaSTATin [Lipitor] 40 mg PO QHS #30 tablet Metoprolol [Lopressor TAB] 12.5 mg PO BID #60 tablet Clopidogrel [Plavix] 75 mg PO QDAY #30 tablet cilostazoL [Pletal] 100 mg PO BID #60 tablet NIFEdipine XL [Procardia Xl] 30 mg PO Q12HR #30 tablet Pantoprazole [Protonix] 40 mg PO QDAY #30 tablet Rivaroxaban [Xarelto] 2.5 mg PO BID #60 tab
[2021-12-17] MEDS: INSULIN LISPRO 100 UNIT/ML SUB-Q SCH ×2 (09:12→12:38)
[2021-12-17] MEDS: CLOPIDOGREL 75 MG TAB PO SCH (10:00)
[2021-12-17] MEDS: CILOSTAZOL 100 MG TAB PO SCH (10:00)
[2021-12-17] MEDS: CEFEPIME/NS 1 GM/100 ML 1 GM/100 ML BAG IV SCH (10:00)
[2021-12-17] MEDS: METOPROLOL TARTRATE 25 MG TAB PO SCH (10:00)
[2021-12-17] MEDS: NIFEdipine XL 30 MG TAB PO SCH (10:00)
[2021-12-17] MEDS: PANTOPRAZOLE 40 MG TAB PO SCH (10:00)
--- NOTE | 2021-12-17 16:59 | Progress Note ---
Assessment and Plan - Patient Problems (1) Uncontrolled hypertension Current Visit: Yes Status: Acute Plan to address problem: 71-year-old woman who presented with severe uncontrolled hypertension, poor oral intake, with multiple metabolic abnormalities including hypokalemia and dehydration. Status post lower extremity vascular angiography and intervention for ischemic foot. No cardiac complaints. Most significant cardiac issues are the previously uncontrolled hypertension, now better controlled on Procardia XL. Echocardiogram showed normal left ventricular systolic function, ejection fraction 50 to 55%, mild to moderate concentric left ventricular per trophy, no significant valvular pathology. Stable for cardiac discharge on current medical management. Subjective Date of service: 12/17/21 Principal diagnosis: Uncontrolled hypertension Interval history: Patient is comfortable, no cardiac complaints, no new cardiac events reported. Objective Vital Signs Temp Pulse Resp BP Pulse Ox 12/17/21 10:00 109 H 18 131/81 96 12/17/21 06:11 109 H 131/81 12/17/21 03:20 98.8 F 109 H 18 131/81 98 12/16/21 23:13 98.3 F 103 H 18 137/73 97 12/16/21 22:03 97 H 132/65 12/16/21 22:02 97 H 132/65 12/16/21 22:00 18 96 12/16/21 19:17 98.2 F 97 H 18 132/65 96 - Physical Examination General: No Apparent Distress, Cachectic HEENT: Positive: PERRL Neck: Positive: neck supple Cardiac: Positive: Reg Rate and Rhythm Lungs: Positive: Decreased Breath Sounds Neuro: Positive: Weakness (Generalized lethargy) Abdomen: Positive: Soft Skin: Positive: Clear Extremities: Absent: edema
== END 2021-12-17 16:10 | DRG 270 ==
LOC: ED 15:44 → 3A 22:08 → 4A 23:54
PROVIDERS: ADMIT Hospitalist; ATTEND Hospitalist
PROC: 04CL3ZZ Extirpation of Matter from Left Femoral Artery, Percutaneous Approach (ICD-10-PCS; principal; 2021-12-15)
PROC: 047L3ZZ Dilation of Left Femoral Artery, Percutaneous Approach (ICD-10-PCS; 2021-12-15)
PROC: 047L3DZ Dilation of Left Femoral Artery with Intraluminal Device, Percutaneous Approach (ICD-10-PCS; 2021-12-15)
DX: E11.52 Type 2 diabetes mellitus with diabetic peripheral angiopathy with gangrene (principal); N17.0 Acute kidney failure with tubular necrosis; Z20.822 Contact with and (suspected) exposure to COVID-19; I70.222 Atherosclerosis of native arteries of extremities with rest pain, left leg; L08.9 Local infection of the skin and subcutaneous tissue, unspecified; E11.65 Type 2 diabetes mellitus with hyperglycemia; I10 Essential (primary) hypertension; F17.210 Nicotine dependence, cigarettes, uncomplicated; E87.6 Hypokalemia; E83.42 Hypomagnesemia
CPT/HCPCS: 36415; 37227; 70450; 75625; 75710; 76937; 80048; 80053; 80061; 82140; 82805; 82962; 83735; 84484; 85007; 85025; 85610; 85652; 85730; 86140; 87040; 87116; 93005; 93306; 96374; 99285; G0378; J3490; C1714; C1725; C1760; C1769; C1874; C1884; C1887; C2623; C8929; J0692; J1644; J2250; J2405; J3010; J3370; J3475; J7030; J7040; Q9967; U0003